=== PATIENT | female | born 1940 | race Caucasian/White ===

== ENCOUNTER → 2016-02-10 | Outpatient (CLI) | payer MEDICARE, OTHER | LOC: OD 10:51 | PROVIDERS: ATTEND Specialist | DX: E53.8 Deficiency of other specified B group vitamins (principal) | CPT/HCPCS: 36415; 82607 ==

== ENCOUNTER 2016-03-23 06:58 | Day surgery (SDC) | payer MEDICARE, OTHER ==
[~2016-03-23 06:58] MED LIST: KETOROLAC TROMETHAMINE 0.45% 4 DROP/0.4 ML DROPERETTE OS PRN
[2016-03-23] MEDS: CYCLOPENTOLATE 0.2%/PHENYLEPHRINE 1% OPH SOLN 2 ML OS PRN ×3 (07:10→07:30)
[2016-03-23] MEDS: TROPICAMIDE 1% OPH SOLN 3 ML OS PRN ×3 (07:11→07:31)
[2016-03-23] MEDS: BESIFLOXACIN HCL 0.6% OPH SUSP 5 ML BOTTLE OS PRN ×3 (07:12→08:08)
[2016-03-23] MEDS ORDERED: LIDOCAINE 1% INJ-PF (10 MG/ML) 30 ML SDV ONE (07:14)
[2016-03-23] MEDS: TETRACAINE HCL 0.5% OPH SOLN 2 ML OS PRN ×3 (07:14→07:45)
[2016-03-23] MEDS ORDERED: CHONDR SU A NA/HYALUR INTRAOC KIT (SURGICARE) ONE (07:14)
[2016-03-23] MEDS ORDERED: EPINEPHRINE INJ/PF 1 MG/1 ML AMPULE ONE (07:14)
[2016-03-23] MEDS ORDERED: FENTANYL CITRATE INJ/PF 100 MCG/2 ML AMPUL ONE (07:21)
[2016-03-23] MEDS ORDERED: MIDAZOLAM 2 MG/2 ML INJ ONE (07:21)
[2016-03-23] MEDS ORDERED: LIDOCAINE 2% INJ-PF (20 MG/ML) 10 ML AMPUL ONE (07:22)
[2016-03-23] MEDS ORDERED: PROPOFOL INJ 200 MG/20 ML VIAL IV ONE (07:22)
--- NOTE | 2016-03-23 12:53 | [facility] OPERATIVE REPORT E ---
[facility] Operative Report NAME: DEANDRE WAYNE AGE: 75Y DATE OF SURGERY: 03/23/2016 ROOM: PREOPERATIVE DIAGNOSIS: Cataract, left eye. POSTOPERATIVE DIAGNOSIS: Cataract, left eye. OPERATION: Cataract extraction with intraocular lens implant of the left eye. SURGEON: GARRETT REYNOSO M.D. ANESTHESIA: Topical. PROCEDURE: After obtaining appropriate consent, the patient's left eye was prepped and draped in sterile fashion as well as the surgeon in a sterile manner and cataract surgery was started. First a paracentesis blade was used to make a small side-port incision. Viscoelastic was used to inflate the anterior chamber. Next a 2.4 mm incision was made with the paracentesis blade. A continuous capsulorrhexis incision was made using a cystotome and Utrata forceps. Following this hydrodissection was carried out to make the lens fully loose and mobile and it was rotated 90 degrees. Following this, a kknpgg-[id number]-scgiavb technique was used to phacoemulsify the lens with a CDE of 9.83. The remaining cortex was removed with irrigation/aspiration. Provisc was instilled into the capsular bag to inflate the bag. A SN60WF, 21.0 diopter lens was placed. The remaining viscoelastic material was removed with irrigation/aspiration. Following this, a 10-0 nylon suture was used to close the incision and it was found to be watertight. Vigamox was instilled in the eye and a protective shield was placed over the eye. The patient returned to the postoperative recovery in stable condition. DICTATING PHYSICIAN: GARRETT REYNOSO M.D. [id number] PHY#: [id number] ID: [id number] JOB#: [id number] ACCT: [id number] cc:GARRETT REYNOSO M.D. >
--- NOTE | 2016-03-23 12:54 | [facility] DISCHARGE SUMMARY E ---
[facility] Discharge Summary NAME: DEANDRE WAYNE AGE: 75Y ADMITTED: 03/23/2016 DISCHARGED: 03/23/2016 HOSPITAL COURSE: This is a 75-year-old female who underwent cataract extraction of the left eye. DIAGNOSIS: Cataract, left eye. INDICATIONS: She underwent surgery because she was having trouble reading small print like medicine bottles and newspaper. DISCHARGE INSTRUCTIONS: She should to be on a regular diet. No bending at her waist. No heavy lifting. She should use her Besivance, Ilevro, and Durezol and I will see her for her 1 day postoperative tomorrow. DICTATING PHYSICIAN: GARRETT REYNOSO M.D. [id number] PHY#: [id number] ID: [id number] JOB#: [id number] ACCT: [id number] cc:GARRETT REYNOSO M.D. >
== END 2016-03-23 08:52 | disposition home or self-care (01) ==
LOC: SC 06:58
PROVIDERS: ATTEND Internal Medicine
PROC: 08RK3JZ Replacement of Left Lens with Synthetic Substitute, Percutaneous Approach (ICD-10-PCS; principal; 2016-03-23 08:00)
DX: H25.813 Combined forms of age-related cataract, bilateral (principal); H43.812 Vitreous degeneration, left eye; E11.9 Type 2 diabetes mellitus without complications; H52.4 Presbyopia; M10.9 Gout, unspecified; M19.90 Unspecified osteoarthritis, unspecified site; I12.9 Hypertensive chronic kidney disease with stage 1 through stage 4 chronic kidney disease, or unspecified chronic kidney disease; N18.3 Chronic kidney disease, stage 3 (moderate); I50.9 Heart failure, unspecified; Z79.82 Long term (current) use of aspirin; Z79.899 Other long term (current) drug therapy
CPT/HCPCS: 66984; 82962; V2632; J2250; J3490 ×3; A9270; J0171; J3010; J2704; 142

== ENCOUNTER → 2016-04-11 | Outpatient (CLI) | payer MEDICARE, OTHER | LOC: OD 10:33 | PROVIDERS: ATTEND Specialist | DX: E53.8 Deficiency of other specified B group vitamins (principal) | CPT/HCPCS: 36415; 82607 ==

== ENCOUNTER 2016-04-13 07:27 | Day surgery (SDC) | payer MEDICARE, OTHER ==
[~2016-04-13 07:27] MED LIST changes: +KETOROLAC TROMETHAMINE 0.45% 4 DROP/0.4 ML DROPERETTE OD PRN; -KETOROLAC TROMETHAMINE 0.45% 4 DROP/0.4 ML DROPERETTE OS PRN
[2016-04-13] MEDS ORDERED: LIDOCAINE 1% INJ-PF (10 MG/ML) 30 ML SDV ONE (07:52)
[2016-04-13] MEDS ORDERED: EPINEPHRINE INJ/PF 1 MG/1 ML AMPULE ONE (07:52)
[2016-04-13] MEDS: TROPICAMIDE 1% OPH SOLN 3 ML OD PRN ×3 (08:31→08:47)
[2016-04-13] MEDS: CYCLOPENTOLATE 0.2%/PHENYLEPHRINE 1% OPH SOLN 2 ML OD PRN ×3 (08:31→08:47)
[2016-04-13] MEDS: TETRACAINE HCL 0.5% OPH SOLN 2 ML OD PRN ×3 (08:31→09:00)
[2016-04-13] MEDS: BESIFLOXACIN HCL 0.6% OPH SUSP 5 ML BOTTLE OD PRN ×4 (08:31→09:27)
[2016-04-13] MEDS ORDERED: MIDAZOLAM 2 MG/2 ML INJ ONE (08:41)
[2016-04-13] MEDS ORDERED: FENTANYL CITRATE INJ/PF 100 MCG/2 ML AMPUL ONE (08:41)
[2016-04-13] MEDS: CHONDR SU A NA/HYALUR INTRAOC KIT (SURGICARE) ONE ×2 (09:18)
--- NOTE | 2016-04-14 07:33 | [facility] DISCHARGE SUMMARY E ---
[facility] Discharge Summary NAME: DEANDRE WAYNE AGE: 75Y ADMITTED: 04/13/2016 DISCHARGED: 04/13/2016 HISTORY OF PRESENT ILLNESS AND HOSPITAL COURSE: This is a 75-year-old female who underwent cataract extraction of the right eye. DIAGNOSIS: Cataract, right eye. HOSPITAL COURSE: She underwent surgery because she was having trouble reading medicine bottles and trouble driving due to glare from sunlight. DISCHARGE INSTRUCTIONS: 1. She should be on a regular diet. 2. No bending at the waist and no heavy lifting. 3. She should use Besivance, Ilevro, and Durezol at 3 p.m. and 8 p.m. and sleep with a rigid shield. 4. I will see her for her 1-day postoperative tomorrow. DICTATING PHYSICIAN: GARRETT REYNOSO M.D. [id number] PHY#: [id number] ID: [id number] JOB#: [id number] ACCT: [id number] cc:GARRETT REYNOSO M.D. >
--- NOTE | 2016-04-14 07:33 | [facility] OPERATIVE REPORT E ---
[facility] Operative Report NAME: DEANDRE WAYNE AGE: 75Y DATE OF SURGERY: 04/13/2016 ROOM: PREOPERATIVE DIAGNOSIS: Cataract, right eye. POSTOPERATIVE DIAGNOSIS: Cataract, right eye. OPERATION: Cataract extraction with intraocular lens implant of the right eye. SURGEON: GARRETT REYNOSO M.D. ANESTHESIA: Topical. PROCEDURE: After obtaining appropriate consent, the patient's right eye was prepped and draped in sterile fashion as well as the surgeon in a sterile manner and cataract surgery was started. First a paracentesis blade was used to make a small side-port incision. Viscoelastic was used to inflate the anterior chamber. Next a 2.4 mm incision was made with the paracentesis blade. A continuous capsulorrhexis incision was made using a cystotome and Utrata forceps. Following this hydrodissection was carried out to make the lens fully loose and mobile and it was rotated 90 degrees. Following this, a pmtghw-ykw-gzbcwxx technique was used to phacoemulsify the lens with a CDE of 11.71. The remaining cortex was removed with irrigation/aspiration. Provisc was instilled into the capsular bag to inflate the bag. A SN60WF, 20.5 diopter lens was placed. The remaining viscoelastic material was removed with irrigation/aspiration. Following this, a 10-0 nylon suture was used to close the incision and it was found to be watertight. Vigamox was instilled in the eye and a protective shield was placed over the eye. The patient returned to the postoperative recovery in stable condition. DICTATING PHYSICIAN: GARRETT REYNOSO M.D. [id number] PHY#: [id number] ID: [id number] JOB#: [id number] ACCT: [id number] cc:GARRETT REYNOSO M.D. >
== END 2016-04-13 10:15 | disposition home or self-care (01) ==
LOC: SC 07:27
PROVIDERS: ATTEND Internal Medicine
PROC: 08RJ3JZ Replacement of Right Lens with Synthetic Substitute, Percutaneous Approach (ICD-10-PCS; principal; 2016-04-13 09:00)
DX: H25.811 Combined forms of age-related cataract, right eye (principal); Z96.1 Presence of intraocular lens; K21.9 Gastro-esophageal reflux disease without esophagitis; E11.9 Type 2 diabetes mellitus without complications; Z79.899 Other long term (current) drug therapy; Z79.84 Long term (current) use of oral hypoglycemic drugs; I11.0 Hypertensive heart disease with heart failure; I50.9 Heart failure, unspecified; M10.9 Gout, unspecified; J45.909 Unspecified asthma, uncomplicated
CPT/HCPCS: 82962; 66984; V2632; J2250; J3490 ×2; A9270; J0171; J3010; 142

== ENCOUNTER → 2016-08-29 | Outpatient (CLI) | payer MEDICARE, OTHER | LOC: OD 13:28 | PROVIDERS: ATTEND Specialist | DX: E53.8 Deficiency of other specified B group vitamins (principal) | CPT/HCPCS: 36415; 82607 ==

== ENCOUNTER → 2016-09-18 | Outpatient (CLI) | payer MEDICARE, OTHER ==
[2016-09-18 09:09] LABS: ABSOLUTE BASOPHILS # (AUTO) 0.1 10^3/uL (0.0-0.2); ABSOLUTE EOSINOPHILS # (AUTO) 0.3 10^3/uL (0.0-0.6); ABSOLUTE LYMPHOCYTES (AUTO) 1.8 10^3/uL (0.5-4.7); ABSOLUTE MONOCYTES (AUTO) 0.4 10^3/uL (0.1-1.4); ABSOLUTE NEUT (AUTO) 2.1 10^3/uL (1.7-8.2); BASOPHILS % (AUTO) 1.6 % (0-2); EOSINOPHILS % (AUTO) 6.1 % (0-6); HEMATOCRIT 40.4 % (36.0-47.0); HEMOGLOBIN 13.5 g/dL (12.0-15.5); HGB HCT DIFFERENCE 0.1; MEAN CORPUSCULAR HEMOGLOBIN 34.3 pg (27.0-33.4); MEAN CORPUSCULAR HGB CONC 33.4 g/dL (32.0-36.0); MEAN CORPUSCULAR VOLUME 103 fl (80-97); MONOCYTES % (AUTO) 9.1 % (3-13); RED BLOOD COUNT 3.93 10^6/uL (3.72-5.28); RED CELL DISTRIBUTION WIDTH 14.6 % (11.5-14.0); SEGMENTED NEUTROPHILS % (AUTO) 44.2 % (42-78); WHITE BLOOD COUNT 4.7 10^3/uL (4.0-10.5)
[2016-09-18 09:31] LABS: ALANINE AMINOTRANSFERASE 31 U/L (9-52); ALBUMIN 4.2 g/dL (3.5-5.0); ALKALINE PHOSPHATASE 100 U/L (38-126); ANION GAP 14 (5-19); ASPARTATE AMINO TRANSFERASE 30 U/L (14-36); BILIRUBIN,DIRECT 0.5 mg/dL (0.0-0.4); BILIRUBIN,TOTAL 0.6 mg/dL (0.2-1.3); BLOOD UREA NITROGEN 82 mg/dL (7-20); CALCIUM 10.3 mg/dL (8.4-10.2); CARBON DIOXIDE 29 mmol/L (22-30); CHLORIDE 99 mmol/L (98-107); CHOLESTEROL 232.49 mg/dL (0-200); CREATININE RESULT 2.72 mg/dL (0.52-1.25); Direct HDL 33 mg/dL (>40); GLUCOSE 107 mg/dL (75-110); POTASSIUM 4.9 mmol/L (3.6-5.0); SODIUM 141.7 mmol/L (137-145); TRIGLYCERIDES 520 mg/dL (<150)
[2016-09-18 09:42] LABS: DIRECT LDL 84 mg/dL (<100)
== END ==
LOC: OD 07:42
PROVIDERS: ATTEND Internal Medicine
DX: E11.9 Type 2 diabetes mellitus without complications (principal); I12.9 Hypertensive chronic kidney disease with stage 1 through stage 4 chronic kidney disease, or unspecified chronic kidney disease; N18.3 Chronic kidney disease, stage 3 (moderate); M10.9 Gout, unspecified
CPT/HCPCS: 36415; 80053; 80061; 82043; 83036; 84443; 84550; 85025

== ENCOUNTER → 2016-11-06 | Outpatient (CLI) | payer MEDICARE, OTHER ==
[2016-11-06 10:55] LABS: ALBUMIN 3.7 g/dL (3.5-5.0); ANION GAP 11 (5-19); BLOOD UREA NITROGEN 19 mg/dL (7-20); CALCIUM 9.9 mg/dL (8.4-10.2); CARBON DIOXIDE 29 mmol/L (22-30); CHLORIDE 105 mmol/L (98-107); CREATININE RESULT 1.14 mg/dL (0.52-1.25); GLUCOSE 105 mg/dL (75-110); PHOSPHORUS 3.2 mg/dL (2.5-4.5); POTASSIUM 4.3 mmol/L (3.6-5.0)
[2016-11-06 11:22] LABS: APPEARANCE,URINE CLOUDY; BILIRUBIN,URINE NEGATIVE (NEGATIVE); GLUCOSE, URINE NEGATIVE (NEGATIVE); KETONES,URINE NEGATIVE (NEGATIVE); LEUKOCYTE ESTERASE,URINE LARGE (NEGATIVE); NITRITE,URINE POSITIVE (NEGATIVE); PROTEIN,URINE 30 mg/dL (NEGATIVE); URINE SPECIFIC GRAVITY 1.011
[2016-11-06 11:33] LABS: URINE CREATININE 60.2 mg/dL (15-278); URINE PROTEIN 46.6 mg/dL (<12)
[2016-11-07 07:09] LABS: VITAMIN D 25-HYDROXY 39.7 ng/mL (30.0-100.0)
== END ==
LOC: OD 09:46
PROVIDERS: ATTEND Internal Medicine Nephrology
DX: N18.3 Chronic kidney disease, stage 3 (moderate) (principal)
CPT/HCPCS: 36415; 80069; 81001; 82306; 82570; 83970; 84156

== ENCOUNTER → 2017-02-27 | Outpatient (CLI) | payer MEDICARE, OTHER ==
[2017-02-27 09:26] LABS: ABSOLUTE BASOPHILS # (AUTO) 0.1 10^3/uL (0.0-0.2); ABSOLUTE EOSINOPHILS # (AUTO) 0.3 10^3/uL (0.0-0.6); ABSOLUTE MONOCYTES (AUTO) 0.5 10^3/uL (0.1-1.4); ABSOLUTE NEUT (AUTO) 2.7 10^3/uL (1.7-8.2); EOSINOPHILS % (AUTO) 4.7 % (0-6); HEMATOCRIT 46.4 % (36.0-47.0); HEMOGLOBIN 15.3 g/dL (12.0-15.5); LYMPHOCYTES % (AUTO) 36.6 % (13-45); MEAN CORPUSCULAR HEMOGLOBIN 32.3 pg (27.0-33.4); MEAN CORPUSCULAR HGB CONC 33.1 g/dL (32.0-36.0); MEAN CORPUSCULAR VOLUME 98 fl (80-97); MONOCYTES % (AUTO) 8.5 % (3-13); PLATELET COUNT 177 10^3/uL (150-450); RED BLOOD COUNT 4.75 10^6/uL (3.72-5.28); RED CELL DISTRIBUTION WIDTH 13.9 % (11.5-14.0); SEGMENTED NEUTROPHILS % (AUTO) 49.2 % (42-78); TOTAL CELLS COUNTED % (AUTO) 100 %; WHITE BLOOD COUNT 5.5 10^3/uL (4.0-10.5)
[2017-02-27 09:31] LABS: APPEARANCE,URINE SLIGHTLY-CLOUDY; BILIRUBIN,URINE NEGATIVE (NEGATIVE); COLOR,URINE YELLOW; GLUCOSE, URINE NEGATIVE (NEGATIVE); KETONES,URINE NEGATIVE (NEGATIVE); LEUKOCYTE ESTERASE,URINE LARGE (NEGATIVE); NITRITE,URINE NEGATIVE (NEGATIVE); PROTEIN,URINE NEGATIVE (NEGATIVE); URINE SPECIFIC GRAVITY 1.013
[2017-02-27 09:40] LABS: ALBUMIN 4.4 g/dL (3.5-5.0); ANION GAP 13 (5-19); BLOOD UREA NITROGEN 12 mg/dL (7-20); CALCIUM 10.4 mg/dL (8.4-10.2); CARBON DIOXIDE 27 mmol/L (22-30); CHLORIDE 103 mmol/L (98-107); GLUCOSE 108 mg/dL (75-110); PHOSPHORUS 3.2 mg/dL (2.5-4.5); POTASSIUM 4.1 mmol/L (3.6-5.0); SODIUM 143.1 mmol/L (137-145)
[2017-02-27 09:54] LABS: UR PRO/CREAT RATIO RESULT 0.1 mg/mg (0.0-0.2); URINE CREATININE 104.2 mg/dL (15-278); URINE PROTEIN 8.6 mg/dL (<12)
== END ==
LOC: OD 08:28
PROVIDERS: ATTEND Internal Medicine Nephrology
DX: N39.0 Urinary tract infection, site not specified (principal); N18.3 Chronic kidney disease, stage 3 (moderate)
CPT/HCPCS: 36415; 80069; 81001; 82306; 82570; 83970; 84156; 85025; 87086

== ENCOUNTER → 2017-03-29 | Outpatient (CLI) | payer MEDICARE, OTHER ==
[2017-03-29 11:39] LABS: APPEARANCE,URINE CLOUDY; BILIRUBIN,URINE NEGATIVE (NEGATIVE); COLOR,URINE YELLOW; GLUCOSE, URINE NEGATIVE (NEGATIVE); KETONES,URINE NEGATIVE (NEGATIVE); LEUKOCYTE ESTERASE,URINE LARGE (NEGATIVE); NITRITE,URINE NEGATIVE (NEGATIVE); PROTEIN,URINE 100 mg/dL (NEGATIVE); URINE SPECIFIC GRAVITY 1.012; UROBILINOGEN,URINE NEGATIVE mg/dL (<2.0)
== END ==
LOC: OD 10:43
PROVIDERS: ATTEND Internal Medicine Nephrology
DX: R30.0 Dysuria (principal)
CPT/HCPCS: 81001; 87086; 87088; 87186

== ENCOUNTER 2017-06-05 15:48 | Inpatient (IN) | payer MEDICARE, OTHER ==
[2017-06-05] MEDS ORDERED: ASPIRIN 81 MG TABLET, CHEWABLE PO ONE (16:36)
--- NOTE | 2017-06-05 16:52 | ER Document Report ---
ED Medical Screen (RME) - General Chief Complaint: Shortness Of Breath Stated Complaint: CHEST PAIN Time Seen by Provider: 06/05/17 16:48 Notes: The patient is a 77-year-old female, past medical history cardiomyopathy, presents with several days of shortness of breath on exertion and 1 day of a dull substernal chest pressure is worse with movement. She denies numbness, tingling, nausea, vomiting, back pain or abdominal pain. PE: RRR. Lungs CTAB. Strong distal pulses. I have greeted and performed a rapid initial assessment of this patient. A comprehensive ED assessment and evaluation of the patient, analysis of test results and completion of the medical decision making process will be conducted by additional ED providers. TRAVEL OUTSIDE OF THE [place] IN LAST 30 DAYS: No - Related Data Allergies/Adverse Reactions: No Known Allergies Allergy (Verified 06/05/17 15:49) Home Medications: gabapentin, glimepiride, allopurinol, potassium cl, pepcid, amantadine, metoprolol succ er, vit d3, breo ellipta, singulair Past Medical History - Social History Chew tobacco use (# tins/day): No Frequency of alcohol use: None Drug Abuse: None - Past Medical History Cardiac Medical History: Reports: Hx Hypertension Denies: Hx Heart Attack Pulmonary Medical History: Reports: Hx Asthma - NO INHALER Neurological Medical History: Denies: Hx Cerebrovascular Accident, Hx Seizures Renal/ Medical History: Denies: Hx Peritoneal Dialysis GI Medical History: Denies: Hx Hepatitis, Hx Hiatal Hernia, Hx Ulcer Infectious Medical History: Denies: Hx Hepatitis Past Surgical History: Denies: Hx Mastectomy, Hx Open Heart Surgery, Hx Pacemaker Physical Exam - Vital signs Vitals: Temp Pulse Resp BP Pulse Ox 97.5 F 91 18 111/72 98 06/05/17 16:02 06/05/17 16:02 06/05/17 16:02 06/05/17 16:02 06/05/17 16:02 Course - Vital Signs Vital signs: Temp Pulse Resp BP Pulse Ox 97.5 F 91 18 111/72 98 06/05/17 16:02 06/05/17 16:02 06/05/17 16:02 06/05/17 16:02 06/05/17 16:02
--- NOTE | 2017-06-05 17:27 | RADIOLOGY REPORT (SQ) ---
EXAM DESCRIPTION: CHEST SINGLE VIEW COMPLETED DATE/TIME: 06/05/2017 5:19 pm REASON FOR STUDY: chest pain COMPARISON: None. EXAM PARAMETERS: NUMBER OF VIEWS: One view. TECHNIQUE: Single frontal radiographic view of the chest acquired. RADIATION DOSE: NA LIMITATIONS: None. FINDINGS: LUNGS AND PLEURA: Minimal left pleural effusion. No infiltrate is appreciated. MEDIASTINUM AND HILAR STRUCTURES: No masses. Contour normal. HEART AND VASCULAR STRUCTURES: Heart normal in size. Normal vasculature. BONES: No acute findings. HARDWARE: None in the chest. OTHER: No other significant finding. IMPRESSION: Minimal left pleural effusion with no acute cardiopulmonary disease. TECHNICAL DOCUMENTATION: JOB ID: [id number] [employer]- All Rights Reserved Reading location - IP/workstation name: [email or web address]
[2017-06-05 18:17] LABS: ABSOLUTE BASOPHILS # (AUTO) 0.1 10^3/uL (0.0-0.2); ABSOLUTE EOSINOPHILS # (AUTO) 0.1 10^3/uL (0.0-0.6); ABSOLUTE LYMPHOCYTES (AUTO) 2.4 10^3/uL (0.5-4.7); ABSOLUTE MONOCYTES (AUTO) 0.7 10^3/uL (0.1-1.4); ABSOLUTE NEUT (AUTO) 3.5 10^3/uL (1.7-8.2); BASOPHILS % (AUTO) 1.1 % (0-2); EOSINOPHILS % (AUTO) 2.1 % (0-6); HEMATOCRIT 40.3 % (36.0-47.0); HEMOGLOBIN 13.1 g/dL (12.0-15.5); LYMPHOCYTES % (AUTO) 35.1 % (13-45); MEAN CORPUSCULAR HEMOGLOBIN 32.3 pg (27.0-33.4); MEAN CORPUSCULAR HGB CONC 32.5 g/dL (32.0-36.0); MEAN CORPUSCULAR VOLUME 99 fl (80-97); MONOCYTES % (AUTO) 10.4 % (3-13); PLATELET COUNT 182 10^3/uL (150-450); RED BLOOD COUNT 4.06 10^6/uL (3.72-5.28); RED CELL DISTRIBUTION WIDTH 14.5 % (11.5-14.0); SEGMENTED NEUTROPHILS % (AUTO) 51.3 % (42-78); TOTAL CELLS COUNTED % (AUTO) 100 %; WHITE BLOOD COUNT 6.8 10^3/uL (4.0-10.5)
--- NOTE | 2017-06-05 18:42 | ER Document Report ---
ED General - General Chief Complaint: Shortness Of Breath Stated Complaint: CHEST PAIN Time Seen by Provider: 06/05/17 16:48 Mode of Arrival: Medic Information source: Patient, Relative Notes: 77-year-old female history of asthma chf presents with shortness of breath over the past intermittent day. Patient admits chest pain, denies any fevers or chills, patient admits to shortness of breath TRAVEL OUTSIDE OF THE [place] IN LAST 30 DAYS: No - HPI Onset: Just prior to arrival Onset/Duration: Sudden Quality of pain: Pressure Severity: Mild Pain Level: 1 Associated symptoms: Chest pain, Shortness of breath Exacerbated by: Denies Relieved by: Denies Similar symptoms previously: Yes Recently seen / treated by doctor: Yes - Related Data Allergies/Adverse Reactions: No Known Allergies Allergy (Verified 06/05/17 15:49) Home Medications: gabapentin, glimepiride, allopurinol, potassium cl, pepcid, amantadine, metoprolol succ er, vit d3, breo ellipta, singulair Past Medical History - Social History Smoking Status: Never Smoker Cigarette use (# per day): No Chew tobacco use (# tins/day): No Smoking Education Provided: No Frequency of alcohol use: None Drug Abuse: None Family History: Reviewed & Not Pertinent Patient has suicidal ideation: No Patient has homicidal ideation: No - Past Medical History Cardiac Medical History: Reports: Hx Hypertension Denies: Hx Heart Attack Pulmonary Medical History: Reports: Hx Asthma - NO INHALER Neurological Medical History: Denies: Hx Cerebrovascular Accident, Hx Seizures Renal/ Medical History: Denies: Hx Peritoneal Dialysis GI Medical History: Denies: Hx Hepatitis, Hx Hiatal Hernia, Hx Ulcer Infectious Medical History: Denies: Hx Hepatitis Past Surgical History: Denies: Hx Mastectomy, Hx Open Heart Surgery, Hx Pacemaker Review of Systems - Review of Systems Notes: REVIEW OF SYSTEMS: CONSTITUTIONAL : Denies fever, chills, or sweats. Denies recent illness. EENT: Denies eye, ear, throat, or mouth pain or symptoms. Denies nasal or sinus congestion or discharge. Denies throat, tongue, or mouth swelling or difficulty swallowing. CARDIOVASCULAR: Admits to chest pain RESPIRATORY: Admits shortness breath GASTROINTESTINAL: Denies abdominal pain or distention. Denies nausea, vomiting , or diarrhea. Denies blood in vomitus, stools, or per rectum. Denies black, tarry stools. Denies constipation. GENITOURINARY: Denies difficulty urinating, painful urination, burning, frequency, blood in urine, or discharge. FEMALE GENITOURINARY: Denies vaginal bleeding, heavy or abnormal periods, irregular periods. Denies vaginal discharge or odor. MUSCULOSKELETAL: Denies back or neck pain or stiffness. Denies joint pain or swelling. SKIN: Denies rash, lesions or sores. HEMATOLOGIC : Denies easy bruising or bleeding. LYMPHATIC: Denies swollen, enlarged glands. NEUROLOGICAL: Denies confusion or altered mental status. Denies passing out or loss of consciousness. Denies dizziness or lightheadedness. Denies headache. Denies weakness or paralysis or loss of use of either side. Denies problems with gait or speech. Denies sensory loss, numbness, or tingling. Denies seizures. PSYCHIATRIC: Denies anxiety or stress. Denies depression, suicidal ideation, or homicidal ideation. ALL OTHER SYSTEMS REVIEWED AND NEGATIVE. PHYSICAL EXAMINATION: GENERAL: Well-appearing, well-nourished and in no acute distress. HEAD: Atraumatic, normocephalic. EYES: Pupils equal round and reactive to light, extraocular movements intact, conjunctiva are normal. ENT: Nares patent, oropharynx clear without exudates. Moist mucous membranes. NECK: Normal range of motion, supple without lymphadenopathy LUNGS: Crackles at the bases no respiratory distress HEART: Regular rate and rhythm without murmurs ABDOMEN: Soft, nontender, nondistended abdomen. No guarding, no rebound. No masses appreciated. Female : deferred Musculoskeletal: Normal range of motion, no pitting or edema. No cyanosis. NEUROLOGICAL: Cranial nerves grossly intact. Normal speech, normal gait. Normal sensory, motor exams PSYCH: Normal mood, normal affect. SKIN: Warm, Dry, normal turgor, no rashes or lesions noted. Dictation was performed using [employer] voice recognition software Physical Exam - Vital signs Vitals: Temp Pulse Resp BP Pulse Ox 97.5 F 91 18 111/72 98 06/05/17 16:02 06/05/17 16:02 06/05/17 16:02 06/05/17 16:02 06/05/17 16:02 Course - Re-evaluation Re-evalutation: 06/06/17 00:06 Patient's BNP is noted to be significantly elevated at 20,000, chest x-ray does note small effusion, she is satting well however I do believe that there is congestive heart failure associated with this. Patient will be admitted to the hospitalist service for the chest pain CHF exacerbation - Vital Signs Vital signs: Temp Pulse Resp BP Pulse Ox 97.5 F 91 22 H 96/71 L 95 06/05/17 16:02 06/05/17 16:02 06/05/17 21:31 06/05/17 21:31 06/05/17 21:31 - Laboratory Result Diagrams: 06/05/17 18:05 06/05/17 18:47 Laboratory results interpreted by me: 06/05/17 06/05/17 06/05/17 18:05 18:47 18:47 MCV 99 H RDW 14.5 H Potassium 5.2 H BUN 27 H Est GFR ( Amer) 53 L Est GFR (Non-Af Amer) 43 L Creatine Kinase 26 L NT-Pro-B Natriuret Pep 92612 H - Diagnostic Test Radiology reviewed: Image reviewed - 2 view chest x-ray consistent with distant heart failure, Reports reviewed - EKG Interpretation by Me EKG shows normal: Sinus rhythm, Ullin, Intervals, QRS Complexes Discharge - Discharge Clinical Impression: Chest pain Qualifiers: Chest pain type: unspecified Qualified Code(s): R07.9 - Chest pain, unspecified CHF (congestive heart failure) Qualifiers: Heart failure type: combined systolic and diastolic Heart failure chronicity: acute on chronic Qualified Code(s): I50.43 - Acute on chronic combined systolic (congestive) and diastolic (congestive) heart failure Hypotension Qualifiers: Hypotension type: unspecified hypotension type Qualified Code(s): I95.9 - Hypotension, unspecified Condition: Stable Disposition: ADMITTED OBSERVATION Admitting Provider: Hospitalist Unit Admitted: Telemetry
[2017-06-05 19:26] LABS: ALANINE AMINOTRANSFERASE 24 U/L (9-52); ALBUMIN 3.7 g/dL (3.5-5.0); ALKALINE PHOSPHATASE 81 U/L (38-126); ANION GAP 16 (5-19); ASPARTATE AMINO TRANSFERASE 24 U/L (14-36); BILIRUBIN,DIRECT 0.4 mg/dL (0.0-0.4); BILIRUBIN,TOTAL 0.5 mg/dL (0.2-1.3); BLOOD UREA NITROGEN 27 mg/dL (7-20); CALCIUM 9.6 mg/dL (8.4-10.2); CARBON DIOXIDE 23 mmol/L (22-30); CHLORIDE 105 mmol/L (98-107); CREATINE KINASE 26 U/L (30-135); GLUCOSE 105 mg/dL (75-110); POTASSIUM 5.2 mmol/L (3.6-5.0); SODIUM 143.6 mmol/L (137-145); TOTAL PROTEIN 7.2 g/dL (6.3-8.2)
[2017-06-05 19:47] LABS: TROPONIN I 0.026 ng/mL
[2017-06-05] MEDS ORDERED: ONDANSETRON HCL INJ/PF 4 MG/2 ML SDV IV PRN (21:54)
[2017-06-05] MEDS ORDERED: FUROSEMIDE INJ/PF 40 MG/4 ML SDV IV SCH (22:00)
--- NOTE | 2017-06-05 22:38 | EKG REPORT ---
SEVERITY:- ABNORMAL ECG - SINUS RHYTHM NONSPECIFIC INTRAVENTRICULAR CONDUCTION DELAY CONSIDER ANTEROSEPTAL INFARCT : Confirmed by: Kael Fuentes 05-Jun-2017 22:37:32
[2017-06-05] MEDS: CARVEDILOL 6.25 MG TABLET PO SCH (22:43)
--- NOTE | 2017-06-05 23:56 | PDOC H&P ---
History of Present Illness Admission Date/PCP: 06/05/17 21:09 ALEXANDR ABRAHAM, History of Present Illness: DEANDRE WAYNE is a 77 year old female patient with past medical history of hypertension, hyperlipidemia, diabetes mellitus, diabetic neuropathy , congestive heart failure, cardiomyopathy and stage II chronic kidney disease. She she stated she has been in her usual baseline state of health up until one week when she starts to have intermittent shortness of breath precipitated by exertion. Of note patient r has been taken off her Lasix by her general lithographic worker. Patient also noticed swelling of her bilateral lower extremities. Her initial blood work shows markedly elevated BNP of 23,000, hyperkalemia which is mild 5.2 and creatinine of 1.2. Her chest x-ray showed mild left pleural effusion. Patient also complains of mild chest pain. She denies fever, chills, cough, palpitation, diaphoresis, nausea, vomiting, abdominal pain, diarrhea or urinary complaints. No headache, dizziness or visual change. Past Medical History Cardiac Medical History: Reports: Hypertension Denies: Myocardial Infarction Pulmonary Medical History: Reports: Asthma - NO INHALER Neurological Medical History: Denies: Seizures Endocrine Medical History: Reports: Diabetes Mellitus Type 2 Renal/ Medical History: Reports: Chronic Kidney Disease GI Medical History: Denies: Hepatitis, Hiatal Hernia Hematology: Denies: Anemia, Sickle Cell Disease Social History Smoking Status: Never Smoker Frequency of Alcohol Use: None Family History Family History: Hypertension Parental Family History Reviewed: Yes Children Family History Reviewed: Yes Sibling(s) Family History Reviewed.: Yes Medication/Allergy Home Medications: Famotidine 40 mg PO DAILY 03/21/16 Gabapentin 600 mg PO TID 03/21/16 Glimepiride [Amaryl] 2 mg PO DAILY 03/21/16 Potassium Chloride 10 meq PO DAILY 03/21/16 Allergies/Adverse Reactions: No Known Allergies Allergy (Verified 06/05/17 15:49) Review of Systems Constitutional: PRESENT: as per HPI Eyes: PRESENT: as per HPI Cardiovascular: PRESENT: as per HPI Respiratory: PRESENT: as per HPI Neurological: PRESENT: as per HPI Physical Exam Vital Signs: Temp Pulse Resp BP Pulse Ox 97.5 F 91 19 99/86 H 98 06/05/17 16:02 06/05/17 16:02 06/05/17 23:01 06/05/17 23:01 06/05/17 23:01 General appearance: PRESENT: mild distress Head exam: PRESENT: atraumatic, normocephalic Respiratory exam: PRESENT: other - Bilateral fine crackles Extremities exam: PRESENT: +2 edema - Bilateral Results Impressions: Chest X-Ray 06/05/17 16:36 IMPRESSION: Minimal left pleural effusion with no acute cardiopulmonary disease. Assessment & Plan - Diagnosis (1) Acute on chronic systolic congestive heart failure, NYHA class 2 Is this a current diagnosis for this admission?: Yes Plan: Patient admitted was for inpatient status. Lasix 40 mg IV every 12 hours ,Coreg 6.12 mg twice a day, enalapril 2.5 mg p.o. daily, digoxin 0.25 mg p.o. daily Daily weight and strict input output monitoring (2) Hypertension Qualifiers: Hypertension type: essential hypertension Qualified Code(s): I10 - Essential (primary) hypertension Is this a current diagnosis for this admission?: Yes Plan: Controlled. Continue her home medication. (3) Diabetes mellitus Qualifiers: Diabetes mellitus type: type 2 Diabetes mellitus complication detail: with polyneuropathy Is this a current diagnosis for this admission?: Yes Plan: Continue her home medication and she will be on sliding scale. (4) Hyperlipidemia Qualifiers: Hyperlipidemia type: unspecified Qualified Code(s): E78.5 - Hyperlipidemia , unspecified Is this a current diagnosis for this admission?: Yes Plan: Continue her home medication. - Time Time Spent: 30 to 50 Minutes - Inpatient Certification Medical Necessity: Need Close Monitoring Due to Risk of Patient Decompensation
[2017-06-06 05:35] LABS: ANION GAP 15 (5-19); BLOOD UREA NITROGEN 27 mg/dL (7-20); CALCIUM 9.5 mg/dL (8.4-10.2); CARBON DIOXIDE 28 mmol/L (22-30); CHLORIDE 103 mmol/L (98-107); GLUCOSE 102 mg/dL (75-110); SODIUM 145.8 mmol/L (137-145)
[2017-06-06 05:44] LABS: POTASSIUM 4.2 mmol/L (3.6-5.0)
[2017-06-06] MEDS: HEPARIN SOD (PORCINE) 5,000 UNIT/ML 1 ML SYRINGE SUBCUT SCH ×3 (06:36→21:39)
--- NOTE | 2017-06-06 08:18 | PDOC PROGRESS REPORT ---
Subjective Progress Note for:: 06/06/17 Subjective:: The patient states to feel better. She denies any chest pain or shortness of breath. Reason For Visit: HEART FAILURE Physical Exam Vital Signs: Temp Pulse Resp BP Pulse Ox 97.5 F 74 18 94/60 L 94 06/06/17 03:56 06/06/17 03:56 06/06/17 03:56 06/06/17 03:56 06/06/17 03:56 Intake & Output 06/05/17 06/06/17 06/07/17 06:59 06:59 06:59 Intake Total 2 Output Total 900 Balance -898 Weight 75.5 kg General appearance: PRESENT: mild distress Head exam: PRESENT: atraumatic Eye exam: PRESENT: conjunctiva pink Neck exam: PRESENT: carotid bruit Respiratory exam: PRESENT: rales Cardiovascular exam: PRESENT: +S1, +S2 Pulses: PRESENT: +1 pedal pulses bilateral GI/Abdominal exam: PRESENT: normal bowel sounds, soft Extremities exam: PRESENT: pedal edema Musculoskeletal exam: PRESENT: full ROM Neurological exam: PRESENT: alert, awake Results Laboratory Results: 06/06/17 04:20 06/06/17 04:20 Sodium 145.8 H Potassium 4.2 D Chloride 103 Carbon Dioxide 28 Anion Gap 15 BUN 27 H Creatinine 1.16 Est GFR ( Amer) 55 L Est GFR (Non-Af Amer) 45 L Glucose 102 Calcium 9.5 Magnesium 1.9 Impressions: Chest X-Ray 06/05/17 16:36 IMPRESSION: Minimal left pleural effusion with no acute cardiopulmonary disease. Assessment & Plan - Diagnosis (1) Acute on chronic systolic congestive heart failure, NYHA class 2 Is this a current diagnosis for this admission?: Yes (2) Diabetes mellitus Qualifiers: Diabetes mellitus type: type 2 Diabetes mellitus complication detail: with polyneuropathy Is this a current diagnosis for this admission?: Yes Plan: Continue current medications (3) Hyperlipidemia Qualifiers: Hyperlipidemia type: unspecified Qualified Code(s): E78.5 - Hyperlipidemia , unspecified Is this a current diagnosis for this admission?: Yes Plan: Continue current treatment (4) Hypertension Qualifiers: Hypertension type: essential hypertension Qualified Code(s): I10 - Essential (primary) hypertension Is this a current diagnosis for this admission?: Yes Plan: Continue current treatment
[2017-06-06 09:56] LABS: CREATINE KINASE MB 0.71 ng/mL (<4.55); TROPONIN I 0.027 ng/mL
[2017-06-06] MEDS ORDERED: DIGOXIN 0.125 MG TABLET PO SCH (10:00)
[2017-06-06] MEDS ORDERED: ENALAPRIL MALEATE 2.5 MG TABLET PO SCH (10:00)
[2017-06-06] MEDS: CARVEDILOL 6.25 MG TABLET PO SCH ×2 (12:51→21:39)
[2017-06-06] MEDS: ASPIRIN 81 MG TABLET, ENT COATED PO SCH (12:52)
[2017-06-06] MEDS ORDERED: FUROSEMIDE 40 MG TABLET PO ONE (13:00)
[2017-06-06 15:46] LABS: CREATINE KINASE MB 0.69 ng/mL (<4.55); TROPONIN I 0.026 ng/mL
[2017-06-06 21:21] LABS: CREATINE KINASE MB 0.56 ng/mL (<4.55); TROPONIN I 0.035 ng/mL
[2017-06-06] MEDS: FUROSEMIDE 40 MG TABLET PO SCH (21:39)
[2017-06-07 05:06] LABS: ABSOLUTE BASOPHILS # (AUTO) 0.1 10^3/uL (0.0-0.2); ABSOLUTE EOSINOPHILS # (AUTO) 0.2 10^3/uL (0.0-0.6); ABSOLUTE LYMPHOCYTES (AUTO) 1.8 10^3/uL (0.5-4.7); ABSOLUTE MONOCYTES (AUTO) 0.5 10^3/uL (0.1-1.4); ABSOLUTE NEUT (AUTO) 1.9 10^3/uL (1.7-8.2); BASOPHILS % (AUTO) 1.2 % (0-2); EOSINOPHILS % (AUTO) 4.5 % (0-6); HEMATOCRIT 37.8 % (36.0-47.0); HEMOGLOBIN 12.4 g/dL (12.0-15.5); LYMPHOCYTES % (AUTO) 40.9 % (13-45); MEAN CORPUSCULAR HGB CONC 32.9 g/dL (32.0-36.0); MEAN CORPUSCULAR VOLUME 97 fl (80-97); MONOCYTES % (AUTO) 12.1 % (3-13); PLATELET COUNT 146 10^3/uL (150-450); RED BLOOD COUNT 3.88 10^6/uL (3.72-5.28); RED CELL DISTRIBUTION WIDTH 13.9 % (11.5-14.0); SEGMENTED NEUTROPHILS % (AUTO) 41.3 % (42-78); TOTAL CELLS COUNTED % (AUTO) 100 %; WHITE BLOOD COUNT 4.5 10^3/uL (4.0-10.5)
[2017-06-07] MEDS: HEPARIN SOD (PORCINE) 5,000 UNIT/ML 1 ML SYRINGE SUBCUT SCH ×3 (05:34→21:16)
[2017-06-07 06:20] LABS: ALANINE AMINOTRANSFERASE 22 U/L (9-52); ALBUMIN 3.6 g/dL (3.5-5.0); ALKALINE PHOSPHATASE 80 U/L (38-126); ANION GAP 15 (5-19); ASPARTATE AMINO TRANSFERASE 25 U/L (14-36); BILIRUBIN,DIRECT 0.4 mg/dL (0.0-0.4); BILIRUBIN,TOTAL 0.7 mg/dL (0.2-1.3); BLOOD UREA NITROGEN 35 mg/dL (7-20); CALCIUM 9.8 mg/dL (8.4-10.2); CARBON DIOXIDE 29 mmol/L (22-30); CHLORIDE 102 mmol/L (98-107); GLUCOSE 111 mg/dL (75-110); POTASSIUM 3.8 mmol/L (3.6-5.0); SODIUM 145.7 mmol/L (137-145)
--- NOTE | 2017-06-07 08:50 | PDOC PROGRESS REPORT ---
Subjective Progress Note for:: 06/07/17 Subjective:: The patient states to feel better. She is still short of breath with exertion but it seemed to be improving. She is in a negative balance. She denies any chest pain. She denies any palpitations. Reason For Visit: HEART FAILURE Physical Exam Vital Signs: Temp Pulse Resp BP Pulse Ox 97.6 F 74 16 101/57 L 94 06/07/17 03:26 06/07/17 07:00 06/07/17 03:26 06/07/17 06:11 06/07/17 03:26 Intake & Output 06/06/17 06/07/17 06/08/17 06:59 06:59 06:59 Intake Total 2 1010 Output Total 900 1075 Balance -898 -65 Weight 75.5 kg 73.7 kg General appearance: PRESENT: mild distress Head exam: PRESENT: atraumatic Eye exam: PRESENT: conjunctiva pink Neck exam: PRESENT: carotid bruit Respiratory exam: PRESENT: crackles Cardiovascular exam: PRESENT: +S1, +S2 Pulses: PRESENT: +1 pedal pulses bilateral GI/Abdominal exam: PRESENT: normal bowel sounds, soft Extremities exam: PRESENT: full ROM Musculoskeletal exam: PRESENT: other Neurological exam: PRESENT: alert, awake Results Laboratory Results: 06/07/17 04:21 06/07/17 04:21 06/07/17 06/07/17 06/07/17 04:21 04:21 04:21 WBC 4.5 RBC 3.88 Hgb 12.4 Hct 37.8 MCV 97 MCH 32.0 MCHC 32.9 RDW 13.9 Plt Count 146 L Seg Neutrophils % 41.3 L Lymphocytes % 40.9 Monocytes % 12.1 Eosinophils % 4.5 Basophils % 1.2 Absolute Neutrophils 1.9 Absolute Lymphocytes 1.8 Absolute Monocytes 0.5 Absolute Eosinophils 0.2 Absolute Basophils 0.1 Sodium 145.7 H Potassium 3.8 Chloride 102 Carbon Dioxide 29 Anion Gap 15 BUN 35 H Creatinine 1.31 H Est GFR ( Amer) 48 L Est GFR (Non-Af Amer) 39 L Glucose 111 H Calcium 9.8 Magnesium 1.6 Total Bilirubin 0.7 AST 25 ALT 22 Alkaline Phosphatase 80 Total Protein 7.0 Albumin 3.6 TSH 6.71 H 06/06/17 06/06/17 06/06/17 09:00 09:00 14:20 Creatine Kinase 21 L 24 L CK-MB (CK-2) 0.71 Troponin I 0.027 NT-Pro-B Natriuret Pep 06/06/17 06/06/17 06/06/17 14:20 20:46 20:46 Creatine Kinase < 20 L CK-MB (CK-2) 0.69 0.56 Troponin I 0.026 0.035 NT-Pro-B Natriuret Pep 06/07/17 04:21 Creatine Kinase CK-MB (CK-2) Troponin I NT-Pro-B Natriuret Pep [id number] H Impressions: Chest X-Ray 06/05/17 16:36 IMPRESSION: Minimal left pleural effusion with no acute cardiopulmonary disease. Assessment & Plan - Diagnosis (1) Acute on chronic systolic congestive heart failure, NYHA class 2 Is this a current diagnosis for this admission?: Yes Plan: Improving. We will continue with diuretics and her cardiac meds (2) Diabetes mellitus Qualifiers: Diabetes mellitus type: type 2 Diabetes mellitus complication detail: with polyneuropathy Is this a current diagnosis for this admission?: Yes Plan: Continue current medications (3) Hyperlipidemia Qualifiers: Hyperlipidemia type: unspecified Qualified Code(s): E78.5 - Hyperlipidemia , unspecified Is this a current diagnosis for this admission?: Yes Plan: Continue current medications (4) Hypertension Qualifiers: Hypertension type: essential hypertension Qualified Code(s): I10 - Essential (primary) hypertension Is this a current diagnosis for this admission?: Yes Plan: Continue current treatment
[2017-06-07] MEDS ORDERED: (PENDING PHARMACY ID) (Fluticasone/Vilanterol [Breo Ellipta 100-25 Mcg Inh] 1 PUFF) IH SCH (10:00)
[2017-06-07] MEDS ORDERED: (PENDING PHARMACY ID) (Amantadine Hcl [Amantadine] 100 MG) PO SCH (10:00)
[2017-06-07] MEDS: FAMOTIDINE 20 MG TABLET PO SCH (10:53)
[2017-06-07] MEDS: AMANTADINE HCL 100 MG CAPSULE PO SCH ×2 (10:56→17:56)
[2017-06-07] MEDS: ASPIRIN 81 MG TABLET, ENT COATED PO SCH (10:56)
[2017-06-07] MEDS: GLIMEPIRIDE 1 MG TABLET PO SCH (10:56)
[2017-06-07] MEDS: FUROSEMIDE 40 MG TABLET PO SCH ×2 (10:56→21:16)
[2017-06-07] MEDS: VALSARTAN 80 MG TABLET PO SCH (10:57)
[2017-06-07] MEDS: POTASSIUM CHLORIDE 10 MEQ TABLET.SA PO SCH (10:57)
[2017-06-07] MEDS: METOPROLOL SUCCINATE 25 MG TAB.SR.24H PO SCH (10:57)
[2017-06-07] MEDS: FLUTICASONE NASAL SPRAY 50 MCG/SPRY 120 SPRAY/16 GM NASL SCH (10:58)
[2017-06-07 11:02] LABS: CREATINE KINASE MB 0.72 ng/mL (<4.55); TROPONIN I 0.037 ng/mL
[2017-06-07] MEDS: GABAPENTIN 300 MG CAPSULE PO SCH ×2 (11:05→17:56)
[2017-06-07 15:45] LABS: CREATINE KINASE MB 0.51 ng/mL (<4.55); TROPONIN I 0.03 ng/mL
[2017-06-07 21:24] LABS: CREATINE KINASE MB 0.42 ng/mL (<4.55); TROPONIN I 0.043 ng/mL
[2017-06-08] MEDS: GABAPENTIN 300 MG CAPSULE PO SCH ×2 (00:07→06:11)
[2017-06-08 04:39] LABS: ABSOLUTE EOSINOPHILS # (AUTO) 0.2 10^3/uL (0.0-0.6); ABSOLUTE LYMPHOCYTES (AUTO) 2.1 10^3/uL (0.5-4.7); ABSOLUTE MONOCYTES (AUTO) 0.6 10^3/uL (0.1-1.4); ABSOLUTE NEUT (AUTO) 1.9 10^3/uL (1.7-8.2); BASOPHILS % (AUTO) 0.8 % (0-2); EOSINOPHILS % (AUTO) 3.9 % (0-6); HEMATOCRIT 37.4 % (36.0-47.0); HEMOGLOBIN 12.3 g/dL (12.0-15.5); LYMPHOCYTES % (AUTO) 42.9 % (13-45); MEAN CORPUSCULAR VOLUME 97 fl (80-97); MONOCYTES % (AUTO) 12.7 % (3-13); PLATELET COUNT 159 10^3/uL (150-450); RED BLOOD COUNT 3.85 10^6/uL (3.72-5.28); RED CELL DISTRIBUTION WIDTH 13.8 % (11.5-14.0); SEGMENTED NEUTROPHILS % (AUTO) 39.7 % (42-78); TOTAL CELLS COUNTED % (AUTO) 100 %; WHITE BLOOD COUNT 4.9 10^3/uL (4.0-10.5)
[2017-06-08 04:59] LABS: ANION GAP 15 (5-19); BLOOD UREA NITROGEN 40 mg/dL (7-20); CALCIUM 9.3 mg/dL (8.4-10.2); CARBON DIOXIDE 32 mmol/L (22-30); CHLORIDE 97 mmol/L (98-107); GLUCOSE 89 mg/dL (75-110); POTASSIUM 3.9 mmol/L (3.6-5.0); SODIUM 143.5 mmol/L (137-145)
[2017-06-08] MEDS: HEPARIN SOD (PORCINE) 5,000 UNIT/ML 1 ML SYRINGE SUBCUT SCH (06:11)
--- NOTE | 2017-06-08 07:52 | PDOC DISCHARGE SUMMARY ---
General - Admit/Disc Date/PCP Admission Date/Primary Care Provider: 06/05/17 21:09 ALEXANDR ABRAHAM, Discharge Date: 06/08/17 - Discharge Diagnosis (1) Acute on chronic systolic congestive heart failure, NYHA class 2 Is this a current diagnosis for this admission?: Yes Summary: The patient did well. Her negative balance of fluid was more than 3 L. Her BNP has decreased from 22,000 down to 9000. She did not have any chest pain. (2) Diabetes mellitus Is this a current diagnosis for this admission?: Yes Summary: Her blood sugars have remained stable and will continue with the same medication as an outpatient (3) Hyperlipidemia Is this a current diagnosis for this admission?: Yes Summary: Continue current medications (4) Hypertension Is this a current diagnosis for this admission?: Yes Summary: Continue current treatment. Will consider decreasing valsartan down to 40 mg daily - Additional Information Discharge Diet: Cardiac Discharge Activity: Activity As Tolerated, Balance Activity w/Rest, Weigh Daily Home Medications: Amantadine HCl [Amantadine] 100 mg PO BID 06/06/17 Famotidine [Pepcid 40 mg Tablet] 40 mg PO DAILY 06/06/17 Fluticasone Propionate [Flonase Nasal [place] 50 Mcg/[place] 16 gm] 1 spray NASL DAILY 06/06/17 Fluticasone/Vilanterol [Breo Ellipta 100-25 Mcg INH] 1 puff IH DAILY 06/06/17 Gabapentin [Neurontin] 600 mg PO Q6 06/06/17 Glimepiride [Amaryl 1 mg Tablet] 1 mg PO DAILY 06/06/17 Metoprolol Succinate [Toprol Xl 25 mg Tab.sr] 25 mg PO DAILY 06/06/17 Montelukast Sodium [Singulair 10 mg Tablet] 10 mg PO QHS 06/06/17 Potassium Chloride [Klor-Con 10] 20 meq PO DAILY 06/06/17 Valsartan [Diovan 80 mg Tablet] 80 mg PO DAILY 06/06/17 Furosemide [Lasix 40 mg Tablet] 40 mg PO DAILY tablet 06/08/17 History of Present Illness History of Present Illness: DEANDRE WAYNE is a 77 year old female Hospital Course Hospital Course: The patient was admitted with an acute on chronic congestive heart failure. She had significant amount of diuresis. Her BMP has decreased. She denied any shortness of breath or chest pain. Her cardiac enzymes were borderline most probably consistent with cardiomyopathy she tolerated diuretics well.a Physical Exam Vital Signs: Temp Pulse Resp BP Pulse Ox 97.4 F 71 16 87/63 L 90 L 06/08/17 07:16 06/08/17 07:16 06/08/17 07:16 06/08/17 07:16 06/08/17 07:16 Intake & Output 06/07/17 06/08/17 06/09/17 06:59 06:59 06:59 Intake Total 1010 730 Output Total 1075 Balance -65 730 Weight 73.7 kg 72.4 kg General appearance: PRESENT: no acute distress Head exam: PRESENT: atraumatic Neck exam: PRESENT: carotid bruit Respiratory exam: PRESENT: clear to auscultation marzena Cardiovascular exam: PRESENT: +S1, +S2 GI/Abdominal exam: PRESENT: normal bowel sounds, soft Extremities exam: ABSENT: pedal edema Musculoskeletal exam: PRESENT: ambulatory Neurological exam: PRESENT: alert, awake Results Laboratory Results: 06/08/17 03:48 06/08/17 03:48 06/08/17 06/08/17 03:48 03:48 WBC 4.9 RBC 3.85 Hgb 12.3 Hct 37.4 MCV 97 MCH 32.0 MCHC 33.0 RDW 13.8 Plt Count 159 Seg Neutrophils % 39.7 L Lymphocytes % 42.9 Monocytes % 12.7 Eosinophils % 3.9 Basophils % 0.8 Absolute Neutrophils 1.9 Absolute Lymphocytes 2.1 Absolute Monocytes 0.6 Absolute Eosinophils 0.2 Absolute Basophils 0.0 Sodium 143.5 Potassium 3.9 Chloride 97 L Carbon Dioxide 32 H Anion Gap 15 BUN 40 H Creatinine 1.50 H Est GFR ( Amer) 41 L Est GFR (Non-Af Amer) 34 L Glucose 89 Calcium 9.3 06/06/17 06/06/17 06/06/17 09:00 09:00 14:20 Creatine Kinase 21 L 24 L CK-MB (CK-2) 0.71 Troponin I 0.027 NT-Pro-B Natriuret Pep 06/06/17 06/06/17 06/06/17 14:20 20:46 20:46 Creatine Kinase < 20 L CK-MB (CK-2) 0.69 0.56 Troponin I 0.026 0.035 NT-Pro-B Natriuret Pep 06/07/17 06/07/17 06/07/17 04:21 10:09 10:09 Creatine Kinase 25 L CK-MB (CK-2) 0.72 Troponin I 0.037 NT-Pro-B Natriuret Pep 35169 H 06/07/17 06/07/17 06/07/17 15:00 15:00 20:40 Creatine Kinase 24 L 24 L CK-MB (CK-2) 0.51 Troponin I 0.030 NT-Pro-B Natriuret Pep 06/07/17 06/08/17 20:40 03:48 Creatine Kinase CK-MB (CK-2) 0.42 Troponin I 0.043 NT-Pro-B Natriuret Pep 9860 H Impressions: Chest X-Ray 06/05/17 16:36 IMPRESSION: Minimal left pleural effusion with no acute cardiopulmonary disease. Qualifiers - * PATIENT BEING DISCHARGED WITH ANY OF THE FOLLOWING DIAGNOSIS: Heart Failure VTE patient discharged on overlapping Therapy?: Yes HF Pt being discharged on ACEI for LVEF less than 40%?: Yes HF Pt being discharged on [facility] for LVEF less than 40%?: Yes HF Pt with Afib discharged with Warfarin?: No Reason(s) for not prescribing Warfarin:: Not indicated HF Pt discharged on evidence-based Beta Klaus:: Yes
[2017-06-08] MEDS: FAMOTIDINE 20 MG TABLET PO SCH (09:54)
[2017-06-08] MEDS: METOPROLOL SUCCINATE 25 MG TAB.SR.24H PO SCH (09:55)
[2017-06-08] MEDS: POTASSIUM CHLORIDE 10 MEQ TABLET.SA PO SCH (09:55)
[2017-06-08] MEDS: GLIMEPIRIDE 1 MG TABLET PO SCH (09:56)
[2017-06-08] MEDS: AMANTADINE HCL 100 MG CAPSULE PO SCH (09:56)
[2017-06-08] MEDS: ASPIRIN 81 MG TABLET, ENT COATED PO SCH (09:56)
[2017-06-08] MEDS: FLUTICASONE NASAL SPRAY 50 MCG/SPRY 120 SPRAY/16 GM NASL SCH (09:57)
[2017-06-08] MEDS: VALSARTAN 80 MG TABLET PO SCH (09:57)
[2017-06-08] MEDS ORDERED: FUROSEMIDE 40 MG TABLET PO SCH (10:00)
[2017-06-08 10:02] VITALS: BP 100/63
== END 2017-06-08 10:11 | disposition home or self-care (01) | DRG 291 ==
LOC: ER 15:48 → EH 21:09 → OBSVTOIN 21:09 → 3N 06-06 01:38
PROVIDERS: ADMIT Internal Medicine; ATTEND Internal Medicine
DX: I13.0 Hypertensive heart and chronic kidney disease with heart failure and stage 1 through stage 4 chronic kidney disease, or unspecified chronic kidney disease (principal); I50.23 Acute on chronic systolic (congestive) heart failure; I95.9 Hypotension, unspecified; E11.22 Type 2 diabetes mellitus with diabetic chronic kidney disease; N18.2 Chronic kidney disease, stage 2 (mild); E11.42 Type 2 diabetes mellitus with diabetic polyneuropathy; J45.909 Unspecified asthma, uncomplicated; Z79.84 Long term (current) use of oral hypoglycemic drugs; Z79.899 Other long term (current) drug therapy
CPT/HCPCS: 36415; 71045; 80048; 80053; 82550; 82553; 83735; 83880; 84443; 84484; 85025; 93005; 93010; 96374; 99285; J1644; J1940; J3490

== ENCOUNTER 2017-06-15 23:19 | Inpatient (IN) | payer MEDICARE, OTHER ==
[2017-06-15] MEDS ORDERED: NORMAL SALINE 250 ML IV ONE (23:30)
--- NOTE | 2017-06-15 23:34 | ER Document Report ---
ED General - General Stated Complaint: VOMITING Time Seen by Provider: 06/15/17 23:24 Notes: Patient is a 77-year-old female who presents with complaint of vomiting. She also has had little bit of lower abdominal pain. She got the hospital due to congestive heart failure approximately a week ago. She says since then she has had a lot of nausea and some vomiting. So the only abdominal pain she has is little bit in the right lower quadrant. No diarrhea. No bloody stools. She said bowel movements have been normal and she had a normal bowel movement today. No blood or emesis. She says sometimes her emesis is greenish in color. She says her breathing has been good she has had no excessive fluid accumulation her legs. No chest pain. No other complaints at this time. History of abdominal surgeries. TRAVEL OUTSIDE OF THE [place] IN LAST 30 DAYS: No - Related Data Allergies/Adverse Reactions: No Known Allergies Allergy (Verified 06/05/17 15:49) Past Medical History - Social History Smoking Status: Unknown if Ever Smoked Frequency of alcohol use: None Drug Abuse: None Family History: Reviewed & Not Pertinent - Past Medical History Cardiac Medical History: Reports: Hx Hypertension Denies: Hx Heart Attack Pulmonary Medical History: Reports: Hx Asthma - NO INHALER Neurological Medical History: Denies: Hx Cerebrovascular Accident, Hx Seizures Endocrine Medical History: Reports: Hx Diabetes Mellitus Type 2 Renal/ Medical History: Denies: Hx Peritoneal Dialysis GI Medical History: Denies: Hx Hepatitis, Hx Hiatal Hernia, Hx Ulcer Psychiatric Medical History: Denies: Hx Depression Infectious Medical History: Denies: Hx Hepatitis Past Surgical History: Denies: Hx Mastectomy, Hx Open Heart Surgery, Hx Pacemaker Review of Systems - Review of Systems Notes: My Normal Review Basic REVIEW OF SYSTEMS: CONSTITUTIONAL : Denies fever, chills, or sweats. Denies recent illness. EENT: Denies eye, ear, throat, or mouth pain or symptoms. Denies nasal or sinus congestion. CARDIOVASCULAR: Denies chest pain. RESPIRATORY: Denies cough, cold, or chest congestion. Denies shortness of breath, difficulty breathing, or wheezing. GASTROINTESTINAL: Some mild right lower quadrant abdominal pain. Some vomiting. No diarrhea. GENITOURINARY: Denies difficulty urinating, painful urination, burning, frequency, or blood in urine. MUSCULOSKELETAL: Denies neck or back pain or joint pain or swelling. SKIN: Denies rash or skin lesions. NEUROLOGICAL: Denies altered mental status or loss of consciousness. Denies headache. Denies weakness or paralysis or loss of use of either side. Denies problems with gait or speech. Denies sensory or motor loss. ALL OTHER SYSTEMS REVIEWED AND NEGATIVE. Physical Exam - Vital signs Vitals: Resp 20 06/15/17 23:52 - Notes Notes: General Appearance: Well nourished, alert, cooperative, no acute distress, no obvious discomfort. well-appearing. Vitals: reviewed, See vital signs table. Head: no swelling or tenderness to the head Eyes: PERRL, EOMI, Conjuctiva clear Mouth: No decreasd moisture Neck: Supple, no neck tenderness, No thyromegaly Lungs: No wheezing, No rales, No rhonci, No accessory muscle use, good air exchange bilaterally. Heart: Normal rate, Regular rythm, No murmur, no rub Abdomen: Normal BS, soft, No rigidity, No reproducible abdominal tenderness to palpation, No guarding, no rebound, no abdominal masses Extremities: good pulses in all extremities, no swelling or tenderness in the extremities, no edema. Skin: warm, dry, appropriate color, no rash Neuro: speech clear, oriented x 3, normal affect, responds appropriately to questions. Course - Re-evaluation Re-evalutation: 06/16/17 00:52 On reevaluation patient continues to not have any difficulty breathing. Her nausea has remained gone after receiving the Zofran by the paramedics. She did receive her initial 250 mL bolus was started with a months. Blood pressure is now on the systolically 88. She says she feels improved. Her son is now bedside and says that when she first came from not home in the hospital was started back on Lasix she was urinating well. She is also been having less p.o. intake as well because they told her to drink less. Son says that in the last several days she has had little urine output despite taking Lasix but also has not been eating or drinking a lot. Suspect that she is now over diuresis and actually dry. I will continue to give her small fluid boluses as I do not want a fluid overload or as she does have a history of significant CHF. I will give her another 250 mL bolus of normal saline. 06/16/17 02:27 Patient's 4 she said that she did try to urinate in a cup but missed the cup. I did ultrasound her bladder and her bladder is flat without a urine and therefore straight cath would not be of any benefit right now. Her chest x-ray does show some mild pulmonary vascular congestion. She still is having some intermittent hypotension yet clinically looks very well and is no longer nauseous. I will place her on a normal saline maintenance drip at 100 mL's an hour to slowly rehydrated without hopefully pressure back in the pulmonary edema. Once she has some urine in her bladder we will obtain straight cath. 06/16/17 03:48 We eventually did get straight cath urine. It was very very cloudy and did come back showing obvious signs of urinary tract infection. This most likely is why she has been vomiting and not eating a whole lot last few days. This in conjunction with being restarted on her Lasix is probably led to her dehydration and worsening of her renal insufficiency. I have been slowly giving her fluids. Debbie has some point vascular congestion on x-ray and therefore I do not feel that we can quickly bolster. I have now placed her fluids at a rate of 100 mL's an hour and she is received approximately 750 mL's of normal saline over the last 4 hours. She does have hypertension. Her blood pressure ranges anywhere from the upper 70s to the low 90s. Manual blood pressure was in the upper 80s systolically. I did review her blood pressure from when she was admitted to the hospital and her blood pressure seem to be consistently in that same range as well. Suspect based on her previous vital signs that this could be chronic for her. Feel that she does require admission though being that she has had quite a bit of vomiting over last 24 hours nor has renal sufficiency does have the ongoing urinary tract infection. I have given a dose of Rocephin we will send urine for culture. I will speak with hospitalist, Dr. Patel, who agrees to admit the patient. Patient is a primary care patient of Reyes Blackwell MD. Dictation of this chart was performed using voice recognition software; therefore, there may be some unintended grammatical errors. - Vital Signs Vital signs: Temp Pulse Resp BP Pulse Ox 97.9 F 16 88/68 L 95 06/15/17 23:57 06/16/17 03:03 06/16/17 03:06 06/16/17 03:03 - Laboratory Result Diagrams: 06/15/17 23:45 06/15/17 23:45 Laboratory results interpreted by me: 06/15/17 06/15/17 06/16/17 23:45 23:45 03:20 MCV 98 H Potassium 5.5 H BUN 50 H Creatinine 2.14 H Est GFR ( Amer) 27 L Est GFR (Non-Af Amer) 22 L Glucose 136 H Urine Protein 100 H Urine Blood SMALL H Urine Urobilinogen 2.0 H Ur Leukocyte Esterase LARGE H - EKG Interpretation by Me Additional EKG results interpreted by me: 06/16/17 01:09 EKG is reviewed and interpreted by me. EKG shows sinus rhythm with rate [address] segment elevation or depression. She does have a left bundle branch block which is chronic and unchanged comparison to her old EKG from June. OR interval is slightly prolonged. QRS duration QTc intervals are prolonged. Discharge - Discharge Clinical Impression: UTI (urinary tract infection) Qualifiers: Urinary tract infection type: site unspecified Hematuria presence: without hematuria Qualified Code(s): N39.0 - Urinary tract infection, site not specified Hypotension Qualifiers: Hypotension type: unspecified hypotension type Qualified Code(s): I95.9 - Hypotension, unspecified Vomiting Qualifiers: Vomiting type: unspecified Vomiting Intractability: non-intractable Nausea presence: with nausea Qualified Code(s): R11.2 - Nausea with vomiting, unspecified Acute on chronic renal failure Qualifiers: Acute renal failure type: unspecified Chronic kidney disease stage: unspecified stage Qualified Code(s): N17.9 - Acute kidney failure, unspecified; N18.9 - Chronic kidney disease, unspecified; N18.9 - Chronic kidney disease, unspecified Condition: Stable Disposition: ADMITTED INPATIENT Admitting Provider: Rosalva Unit Admitted: [facility]
[2017-06-15 23:53] LABS: ABSOLUTE BASOPHILS # (AUTO) 0.1 10^3/uL (0.0-0.2); ABSOLUTE EOSINOPHILS # (AUTO) 0.1 10^3/uL (0.0-0.6); ABSOLUTE LYMPHOCYTES (AUTO) 1.9 10^3/uL (0.5-4.7); ABSOLUTE MONOCYTES (AUTO) 0.9 10^3/uL (0.1-1.4); ABSOLUTE NEUT (AUTO) 5.9 10^3/uL (1.7-8.2); BASOPHILS % (AUTO) 0.9 % (0-2); EOSINOPHILS % (AUTO) 1.6 % (0-6); HEMATOCRIT 40.7 % (36.0-47.0); HEMOGLOBIN 13.3 g/dL (12.0-15.5); LYMPHOCYTES % (AUTO) 21.2 % (13-45); MEAN CORPUSCULAR HGB CONC 32.7 g/dL (32.0-36.0); MEAN CORPUSCULAR VOLUME 98 fl (80-97); MONOCYTES % (AUTO) 10.2 % (3-13); PLATELET COUNT 168 10^3/uL (150-450); RED BLOOD COUNT 4.16 10^6/uL (3.72-5.28); RED CELL DISTRIBUTION WIDTH 13.7 % (11.5-14.0); SEGMENTED NEUTROPHILS % (AUTO) 66.1 % (42-78); TOTAL CELLS COUNTED % (AUTO) 100 %; WHITE BLOOD COUNT 8.9 10^3/uL (4.0-10.5)
[2017-06-16 00:03] LABS: ALANINE AMINOTRANSFERASE 26 U/L (9-52); ALBUMIN 3.9 g/dL (3.5-5.0); ALKALINE PHOSPHATASE 66 U/L (38-126); ANION GAP 13 (5-19); ASPARTATE AMINO TRANSFERASE 27 U/L (14-36); BILIRUBIN,DIRECT 0.4 mg/dL (0.0-0.4); BILIRUBIN,TOTAL 0.5 mg/dL (0.2-1.3); BLOOD UREA NITROGEN 50 mg/dL (7-20); CALCIUM 9.9 mg/dL (8.4-10.2); CARBON DIOXIDE 27 mmol/L (22-30); CHLORIDE 99 mmol/L (98-107); GLUCOSE 136 mg/dL (75-110); POTASSIUM 5.5 mmol/L (3.6-5.0); SODIUM 139.4 mmol/L (137-145); TOTAL PROTEIN 7.4 g/dL (6.3-8.2)
[2017-06-16] MEDS ORDERED: NORMAL SALINE 250 ML IV ONE ×2 (00:52→02:26)
--- NOTE | 2017-06-16 01:42 | RADIOLOGY REPORT (SQ) ---
EXAM DESCRIPTION: CR acute abdominal series CLINICAL HISTORY: 77 years Female, abdominal pain, vomiting COMPARISON: None. NUMBER OF VIEWS/TECHNIQUE: 3 LIMITATIONS: None. FINDINGS: Intestinal gas pattern is within normal limits. 0.6 cm calcification at the right renal silhouette may indicate a right renal stone. Grossly intact skeletal structures. Prominent cardiac silhouette. Pulmonary vascular congestion. IMPRESSION: Pulmonary vascular congestion. Possible 0.6 cm right renal stone.
[2017-06-16 03:36] LABS: AMORPHOUS SEDIMENT,URINE TRACE /HPF; APPEARANCE,URINE TURBID; BILIRUBIN,URINE NEGATIVE (NEGATIVE); COLOR,URINE YELLOW; GLUCOSE, URINE NEGATIVE (NEGATIVE); KETONES,URINE NEGATIVE (NEGATIVE); LEUKOCYTE ESTERASE,URINE LARGE (NEGATIVE); NITRITE,URINE NEGATIVE (NEGATIVE); PROTEIN,URINE 100 mg/dL (NEGATIVE); URINE SPECIFIC GRAVITY 1.016
[2017-06-16] MEDS ORDERED: CEFTRIAXONE INJ 1000 MG VIAL IV ONE (03:40)
[2017-06-16] MEDS ORDERED: LACTULOSE SYRUP 20 GM/30 ML UDCUP PR ONE ×2 (03:47→22:17)
[2017-06-16] MEDS ORDERED: ONDANSETRON HCL INJ/PF 4 MG/2 ML SDV IV PRN (03:48)
[2017-06-16] MEDS ORDERED: MAGNESIUM HYDROXIDE SUSP 30 ML UDCUP PO PRN (03:48)
[2017-06-16] MEDS ORDERED: METOPROLOL TARTRATE PF/INJ 5 MG/5 ML SDV IV PRN (03:48)
[2017-06-16] MEDS: NORMAL SALINE 1000 ML 1,000 ML IV PRN ×4 (04:13→21:44)
[2017-06-16] MEDS: HEPARIN SOD (PORCINE) 5,000 UNIT/ML 1 ML SYRINGE SUBCUT SCH ×3 (06:13→21:46)
--- NOTE | 2017-06-16 07:19 | PDOC H&P ---
History of Present Illness Admission Date/PCP: 06/16/17 03:55 ALEXANDR ABRAHAM, Patient complains of: Nausea and vomiting History of Present Illness: DEANDRE WAYNE is a 77 year old female with a past medical history of congestive heart failure, hypertension, dyslipidemia, diabetes with neuropathy, stage II chronic kidney disease. She was recently discharged following an exacerbation of heart failure. She presents with 12 hours of nausea vomiting of dark foul- smelling material. She denies chest pain palpitations or shortness of breath. In the emergency room she is found to have hypotension, acute renal failure, pyuria without leukocytosis and fecal impaction. She receives an IV fluid challenge, empiric antibiotics and referred to the hospitalist for admission. Patient does not recall her last normal bowel movement. Past Medical History Cardiac Medical History: Reports: Hypertension Denies: Myocardial Infarction Pulmonary Medical History: Reports: Asthma - NO INHALER Neurological Medical History: Denies: Seizures Endocrine Medical History: Reports: Diabetes Mellitus Type 2 GI Medical History: Denies: Hepatitis, Hiatal Hernia Psychiatric Medical History: Denies: Depression Hematology: Denies: Anemia, Sickle Cell Disease Past Surgical History Past Surgical History: Denies: Amputation, Mastectomy, Pacemaker Social History Information Source: Patient, [facility] Records Smoking Status: Never Smoker Frequency of Alcohol Use: None Hx Recreational Drug Use: No Drugs: None Hx Prescription Drug Abuse: No - Advance Directive Resuscitation Status: Full Code Family History Family History: Reviewed & Not Pertinent Parental Family History Reviewed: Yes Children Family History Reviewed: Yes Sibling(s) Family History Reviewed.: Yes Medication/Allergy Home Medications: Amantadine HCl [Amantadine] 100 mg PO BID 06/06/17 Famotidine [Pepcid 40 mg Tablet] 40 mg PO DAILY 06/06/17 Fluticasone Propionate [Flonase Nasal [place] 50 Mcg/[place] 16 gm] 1 spray NASL DAILY 06/06/17 Fluticasone/Vilanterol [Breo Ellipta 100-25 Mcg INH] 1 puff IH DAILY 06/06/17 Gabapentin [Neurontin] 600 mg PO Q6 06/06/17 Glimepiride [Amaryl 1 mg Tablet] 1 mg PO DAILY 06/06/17 Metoprolol Succinate [Toprol Xl 25 mg Tab.sr] 25 mg PO DAILY 06/06/17 Montelukast Sodium [Singulair 10 mg Tablet] 10 mg PO QHS 06/06/17 Potassium Chloride [Klor-Con 10] 20 meq PO DAILY 06/06/17 Valsartan [Diovan 80 mg Tablet] 80 mg PO DAILY 06/06/17 Furosemide [Lasix 40 mg Tablet] 40 mg PO DAILY tablet 06/08/17 Allergies/Adverse Reactions: No Known Allergies Allergy (Verified 06/05/17 15:49) Review of Systems Constitutional: PRESENT: as per HPI, anorexia, fatigue, weakness. ABSENT: fever (s) Eyes: ABSENT: visual disturbances Ears: ABSENT: hearing changes Cardiovascular: ABSENT: chest pain, dyspnea on exertion, edema, orthropnea, palpitations Respiratory: ABSENT: cough, hemoptysis Gastrointestinal: PRESENT: as per HPI, abdominal pain, bloating, constipation, nausea, vomiting. ABSENT: diarrhea Genitourinary: ABSENT: dysuria, hematuria Musculoskeletal: ABSENT: joint swelling Integumentary: ABSENT: rash, wounds Neurological: ABSENT: abnormal gait, abnormal speech, confusion, dizziness, focal weakness, syncope Psychiatric: ABSENT: anxiety, depression, homidical ideation, suicidal ideation Endocrine: ABSENT: cold intolerance, heat intolerance, polydipsia, polyuria Hematologic/Lymphatic: ABSENT: easy bleeding, easy bruising Physical Exam Vital Signs: Temp Pulse Resp BP Pulse Ox 97.3 F 58 L 20 81/60 L 99 06/16/17 05:52 06/16/17 05:52 06/16/17 05:52 06/16/17 05:52 06/16/17 05:52 Intake & Output 06/14/17 06/15/17 06/16/17 11:59 11:59 11:59 Intake Total 50 Output Total 0 Balance 50 Weight 71.4 kg General appearance: PRESENT: cooperative, disheveled, mild distress, obese Head exam: PRESENT: atraumatic, normocephalic Eye exam: PRESENT: conjunctiva pink, EOMI, PERRLA. ABSENT: scleral icterus Ear exam: PRESENT: normal external ear exam Mouth exam: PRESENT: dry mucosa, tongue midline Neck exam: ABSENT: carotid bruit, JVD, lymphadenopathy, thyromegaly Respiratory exam: PRESENT: clear to auscultation marzena. ABSENT: rales, rhonchi, wheezes Cardiovascular exam: PRESENT: RRR. ABSENT: diastolic murmur, rubs, systolic murmur Pulses: PRESENT: normal dorsalis pedis pul Vascular exam: PRESENT: normal capillary refill GI/Abdominal exam: PRESENT: diminished bowel sounds, distended, firm, hypoactive bowel sounds, tenderness. ABSENT: rebound, rigid Rectal exam: PRESENT: deferred Extremities exam: PRESENT: full ROM. ABSENT: calf tenderness, clubbing, pedal edema Neurological exam: PRESENT: alert, awake, oriented to person, oriented to place , oriented to time, oriented to situation, CN II-XII grossly intact. ABSENT: motor sensory deficit Psychiatric exam: PRESENT: appropriate affect, normal mood. ABSENT: homicidal ideation, suicidal ideation Skin exam: PRESENT: dry, intact, warm. ABSENT: cyanosis, rash Results Impressions: Acute Abdomen Series 06/16/17 00:00 IMPRESSION: Pulmonary vascular congestion. Possible 0.6 cm right renal stone. Assessment & Plan - Diagnosis (1) Fecal impaction Is this a current diagnosis for this admission?: Yes Plan: Lactulose enema, manual disimpaction. Clear liquid trial (2) Acute on chronic renal failure Qualifiers: Acute renal failure type: unspecified Chronic kidney disease stage: unspecified stage Qualified Code(s): N17.9 - Acute kidney failure, unspecified ; N18.9 - Chronic kidney disease, unspecified; N18.9 - Chronic kidney disease, unspecified Is this a current diagnosis for this admission?: Yes Plan: Prerenal, hold loop diuretic, IV fluid challenge, follow-up chemistry (3) Hypotension Qualifiers: Hypotension type: unspecified hypotension type Qualified Code(s): I95.9 - Hypotension, unspecified Is this a current diagnosis for this admission?: Yes Plan: Secondary to the above, IV fluid challenge, hold loop diuretic (4) UTI (urinary tract infection) Qualifiers: Urinary tract infection type: site unspecified Hematuria presence: without hematuria Qualified Code(s): N39.0 - Urinary tract infection, site not specified Is this a current diagnosis for this admission?: Yes Plan: Without leukocytosis or fever. Empiric antibiotics, follow-up CBC and urine culture. - Time Time Spent: 50 to 70 Minutes - Inpatient Certification Medical Necessity: Need Close Monitoring Due to Risk of Patient Decompensation
--- NOTE | 2017-06-16 08:58 | EKG REPORT ---
SEVERITY:- ABNORMAL ECG - SINUS RHYTHM LEFT BUNDLE BRANCH BLOCK : Confirmed by: Denys Cano MD 16-Jun-2017 08:57:30
[2017-06-16] MEDS ORDERED: NORMAL SALINE 500 ML IV ONE ×2 (09:00→10:30)
[2017-06-16] MEDS: DOCUSATE SODIUM 100 MG CAPSULE PO SCH ×2 (09:03→17:12)
[2017-06-16] MEDS ORDERED: DEXTROSE 50%-WATER SYRINGE 12.5 GM/25 ML DOSE IV PRN (09:55)
[2017-06-16] MEDS ORDERED: DEXTROSE 50%-WATER SYRINGE 25 GM/50 ML DOSE IV PRN (09:55)
[2017-06-16] MEDS ORDERED: DEXTROSE 40% GEL 15 GM TUBE X 2 PO PRN (09:55)
[2017-06-16] MEDS ORDERED: GLUCAGON,HUMAN RECOMB 1 MG INJ IM PRN (09:55)
[2017-06-16] MEDS ORDERED: DEXTROSE 40% GEL 15 GM TUBE PO PRN (09:55)
[2017-06-16] MEDS ORDERED: INSULIN LISPRO 100 UNIT/ML 3 ML VIAL SUBCUT PRN (09:55)
--- NOTE | 2017-06-16 12:49 | Progress Note ---
Provider Note Provider Note: Nursing called and stated they were having difficulty getting her blood pressure. I went up and found her awake and pleasantly confused but conversational. I too was unable to reliably get a blood pressure that I was confident of even with a Doppler. I will move her to the ICU for closer observation, continue aggressive hydration , add pressors as needed to maintain a map of 60.
[2017-06-16] MEDS ORDERED: DOPAMINE HCL/DEXTROSE 5%-WATER 800 MG/250 ML RTUINJ IV ONE (13:13)
[2017-06-16] MEDS: DOPAMINE HCL/DEXTROSE 5%-WATER 800 MG/250 ML RTUINJ IV PRN (13:44)
[2017-06-16] MEDS ORDERED: NORMAL SALINE 1000 ML 1,000 ML IV ONE ×2 (14:00→16:00)
[2017-06-16 14:28] LABS: ABSOLUTE BASOPHILS # (AUTO) 0.1 10^3/uL (0.0-0.2); ABSOLUTE MONOCYTES (AUTO) 0.5 10^3/uL (0.1-1.4); ABSOLUTE NEUT (AUTO) 3.9 10^3/uL (1.7-8.2); EOSINOPHILS % (AUTO) 0.7 % (0-6); HEMATOCRIT 41.5 % (36.0-47.0); HEMOGLOBIN 13.5 g/dL (12.0-15.5); LYMPHOCYTES % (AUTO) 30.6 % (13-45); MEAN CORPUSCULAR HEMOGLOBIN 31.7 pg (27.0-33.4); MEAN CORPUSCULAR HGB CONC 32.4 g/dL (32.0-36.0); MEAN CORPUSCULAR VOLUME 98 fl (80-97); MONOCYTES % (AUTO) 8.1 % (3-13); PLATELET COUNT 172 10^3/uL (150-450); RED BLOOD COUNT 4.24 10^6/uL (3.72-5.28); RED CELL DISTRIBUTION WIDTH 13.9 % (11.5-14.0); SEGMENTED NEUTROPHILS % (AUTO) 59.6 % (42-78); TOTAL CELLS COUNTED % (AUTO) 100 %; WHITE BLOOD COUNT 6.5 10^3/uL (4.0-10.5)
[2017-06-16] MEDS ORDERED: SODIUM POLYSTYRENE SULFONATE 15 GM/60 ML ONE (15:29)
[2017-06-16] MEDS ORDERED: CALCIUM GLUCONATE 1000 MG/10 ML INJ IV ONE ×2 (15:29→16:00)
[2017-06-16] MEDS ORDERED: SODIUM POLYSTYRENE SULFONATE 15 GM/60 ML PO ONE (16:00)
[2017-06-16] MEDS ORDERED: IPRATROPIUM/ALBUTEROL 0.5-2.5 MG/3 ML AMPUL NEB PRN (16:00)
[2017-06-16 16:38] LABS: ANION GAP 16 (5-19); BLOOD UREA NITROGEN 51 mg/dL (7-20); CALCIUM 8.9 mg/dL (8.4-10.2); CARBON DIOXIDE 22 mmol/L (22-30); CHLORIDE 106 mmol/L (98-107); GLUCOSE 122 mg/dL (75-110); SODIUM 144.3 mmol/L (137-145)
[2017-06-16 16:45] LABS: POTASSIUM 7.1 mmol/L (3.6-5.0)
[2017-06-16] MEDS ORDERED: PHENYLEPHRINE HCL INJ/PF 10 MG/1 ML SDV ONE (17:11)
[2017-06-16] MEDS ORDERED: FUROSEMIDE INJ/PF 40 MG/4 ML SDV ONE (17:12)
[2017-06-16] MEDS ORDERED: FUROSEMIDE INJ/PF 40 MG/4 ML SDV IV ONE (17:30)
--- NOTE | 2017-06-16 18:27 | RADIOLOGY REPORT (SQ) ---
EXAM DESCRIPTION: CHEST SINGLE VIEW COMPLETED DATE/TIME: 06/16/2017 6:10 pm REASON FOR STUDY: Central line placement COMPARISON: 06/05/2017 EXAM PARAMETERS: NUMBER OF VIEWS: One view. TECHNIQUE: Single frontal radiographic view of the chest acquired. RADIATION DOSE: NA LIMITATIONS: None. FINDINGS: LUNGS AND PLEURA: Left pleural reaction. Right lung is clear. No pneumothorax. MEDIASTINUM AND HILAR STRUCTURES: No masses. Contour normal. HEART AND VASCULAR STRUCTURES: Heart normal in size. Normal vasculature. BONES: No acute findings. HARDWARE: Venous access catheter via left IJ approach. Tip is at the junction of the left subclavian and superior vena cava. OTHER: No other significant finding. IMPRESSION: Venous access catheter tip junction left subclavian and IVC. No pneumothorax. TECHNICAL DOCUMENTATION: JOB ID: [id number] [employer]- All Rights Reserved Reading location - IP/workstation name: [email or web address]
[2017-06-16] MEDS ORDERED: HYDROCORTISONE SOD SUCCINATE INJ/PF 100 MG/2 ML SDV IV ONE (19:27)
[2017-06-16] MEDS ORDERED: NORMAL SALINE 250 ML with FUROSEMIDE 250 MG IV PRN ×2 (19:49)
[2017-06-16] MEDS ORDERED: FUROSEMIDE INJ/PF 100 MG/10 ML SDV ONE (20:19)
[2017-06-16] MEDS: CEFTRIAXONE 1 GM/D5W RTU 1 GM/50 ML RTUPB IV SCH (21:41)
[2017-06-16 22:17] LABS: ANION GAP 18 (5-19); BLOOD UREA NITROGEN 48 mg/dL (7-20); CALCIUM 9.2 mg/dL (8.4-10.2); CARBON DIOXIDE 20 mmol/L (22-30); CHLORIDE 107 mmol/L (98-107); GLUCOSE 141 mg/dL (75-110); SODIUM 144.5 mmol/L (137-145)
--- NOTE | 2017-06-16 23:44 | Operative Report ---
Nonrecallable Operative Report DATE OF SURGERY: 06/16/17 PREOPERATIVE DIAGNOSIS: 1. Hypotension. 2. Urosepsis. 3. phlebosclerosis POSTOPERATIVE DIAGNOSIS: Same as above OPERATION: 1. Ultrasound-guided central venous puncture. 2. Left internal jugular vein central line placement SURGEON: SAMAN CHUNG ANESTHESIA: Local TISSUE REMOVED OR ALTERED: none COMPLICATIONS: None apparent ESTIMATED BLOOD LOSS: Minimal PROCEDURE: Drains/implants: Central line to the left internal jugular vein at 14 cm. After informed consent was obtained, the patient was laid in the Trendelenburg position in the intensive care unit. The area of the left neck and chest were prepped and draped in a normal sterile fashion. The ultrasound was used to identify the left internal jugular vein. It was compressible with normal flow. The left neck was infiltrated with 1% lidocaine. The left internal jugular vein was then accessed under direct ultrasonic guidance. Dark venous, nonpulsatile blood was returned in the syringe. The wire was inserted into the vein very easily. The wire was confirmed to be within the lumen of the vein using the ultrasound device. Once this was complete, the catheter was slid over the wire using a modified Seldinger technique. The catheter was aspirated and flushed 3 without difficulty. The ports returned nonpulsatile, dark venous blood. The catheter was sutured to the skin and a dressing was fashioned. At this time the procedure was concluded. All sponge, instrument, and needle counts were correct 2. Condition: Critical.
[2017-06-17] MEDS ORDERED: LACTULOSE SYRUP 20 GM/30 ML UDCUP ONE (01:12)
[2017-06-17] MEDS ORDERED: PHENYLEPHRINE HCL INJ/PF 10 MG/1 ML SDV ONE (04:17)
[2017-06-17 05:16] LABS: ABSOLUTE LYMPHOCYTES (AUTO) 0.6 10^3/uL (0.5-4.7); ABSOLUTE MONOCYTES (AUTO) 0.9 10^3/uL (0.1-1.4); ABSOLUTE NEUT (AUTO) 8.1 10^3/uL (1.7-8.2); BASOPHILS % (AUTO) 0.5 % (0-2); HEMATOCRIT 39.3 % (36.0-47.0); HEMOGLOBIN 13.2 g/dL (12.0-15.5); LYMPHOCYTES % (AUTO) 6.7 % (13-45); MEAN CORPUSCULAR HEMOGLOBIN 32.9 pg (27.0-33.4); MEAN CORPUSCULAR HGB CONC 33.5 g/dL (32.0-36.0); MEAN CORPUSCULAR VOLUME 98 fl (80-97); MONOCYTES % (AUTO) 9.2 % (3-13); PLATELET COUNT 182 10^3/uL (150-450); RED CELL DISTRIBUTION WIDTH 13.6 % (11.5-14.0); SEGMENTED NEUTROPHILS % (AUTO) 83.6 % (42-78); TOTAL CELLS COUNTED % (AUTO) 100 %; WHITE BLOOD COUNT 9.7 10^3/uL (4.0-10.5)
[2017-06-17] MEDS: HEPARIN SOD (PORCINE) 5,000 UNIT/ML 1 ML SYRINGE SUBCUT SCH ×3 (05:23→21:32)
[2017-06-17] MEDS: DEXTROSE 5%-WATER 250 ML with PHENYLEPHRINE HCL 40 MG IV PRN ×8 (05:23→23:58)
[2017-06-17 05:37] LABS: ANION GAP 19 (5-19); BLOOD UREA NITROGEN 42 mg/dL (7-20); CALCIUM 8.9 mg/dL (8.4-10.2); CARBON DIOXIDE 22 mmol/L (22-30); CHLORIDE 108 mmol/L (98-107); GLUCOSE 168 mg/dL (75-110); SODIUM 148.6 mmol/L (137-145)
[2017-06-17] MEDS: DOCUSATE SODIUM 100 MG CAPSULE PO SCH ×2 (09:04→17:38)
[2017-06-17] MEDS ORDERED: VANCOMYCIN HCL 0 MG in DEXTROSE 5%-WATER 250 ML IV NR (14:15)
--- NOTE | 2017-06-17 14:38 | PDOC PROGRESS REPORT ---
Subjective Progress Note for:: 06/17/17 Subjective:: No current complaints beyond wanting something solid to eat. Moving her bowels. Still on considerable pressors. Reason For Visit: HYPOTENSION VOMITING, FECAL IMPACTION,UTI,ARF Physical Exam Vital Signs: Temp Pulse Resp BP Pulse Ox 98.1 F 80 22 H 104/43 L 100 06/17/17 12:00 06/17/17 12:00 06/17/17 12:19 06/17/17 12:19 06/17/17 12:19 Intake & Output 06/16/17 06/17/17 06/18/17 05:59 05:59 05:59 Intake Total 2943 600 Output Total 2053 2800 Balance 887 -2200 Weight 157 lb 6.561 oz 159 lb 2.78 oz General appearance: PRESENT: no acute distress Respiratory exam: PRESENT: clear to auscultation marzena Cardiovascular exam: PRESENT: RRR GI/Abdominal exam: PRESENT: soft. ABSENT: tenderness Gentrourinary exam: PRESENT: indwelling catheter Neurological exam: PRESENT: alert, oriented to person, oriented to place Skin exam: PRESENT: warm Results Laboratory Results: 06/17/17 05:00 06/17/17 05:00 06/16/17 06/16/17 06/16/17 14:09 14:09 15:55 WBC 6.5 RBC 4.24 Hgb 13.5 Hct 41.5 MCV 98 H MCH 31.7 MCHC 32.4 RDW 13.9 Plt Count 172 Seg Neutrophils % 59.6 Lymphocytes % 30.6 Monocytes % 8.1 Eosinophils % 0.7 Basophils % 1.0 Absolute Neutrophils 3.9 Absolute Lymphocytes 2.0 Absolute Monocytes 0.5 Absolute Eosinophils 0.0 Absolute Basophils 0.1 Sodium Cancelled 144.3 Potassium Cancelled 7.1 H* D Chloride Cancelled 106 Carbon Dioxide Cancelled 22 Anion Gap Cancelled 16 BUN Cancelled 51 H Creatinine Cancelled 2.51 H Est GFR ( Amer) Cancelled 22 L Est GFR (Non-Af Amer) Cancelled 19 L Glucose Cancelled 122 H Calcium Cancelled 8.9 Magnesium Cancelled 2.4 H 06/16/17 06/17/17 06/17/17 20:50 05:00 05:00 WBC 9.7 RBC 4.00 Hgb 13.2 Hct 39.3 MCV 98 H MCH 32.9 MCHC 33.5 RDW 13.6 Plt Count 182 Seg Neutrophils % 83.6 H Lymphocytes % 6.7 L Monocytes % 9.2 Eosinophils % 0.0 Basophils % 0.5 Absolute Neutrophils 8.1 Absolute Lymphocytes 0.6 Absolute Monocytes 0.9 Absolute Eosinophils 0.0 Absolute Basophils 0.0 Sodium 144.5 148.6 H Potassium 6.0 H* D 4.0 D Chloride 107 108 H Carbon Dioxide 20 L 22 Anion Gap 18 19 BUN 48 H 42 H Creatinine 2.44 H 2.21 H Est GFR ( Amer) 23 L 26 L Est GFR (Non-Af Amer) 19 L 21 L Glucose 141 H 168 H Calcium 9.2 8.9 Magnesium 06/16/17 06/16/17 15:55 20:50 Troponin I 0.034 NT-Pro-B Natriuret Pep [id number] H Impressions: Acute Abdomen Series 06/16/17 00:00 IMPRESSION: Pulmonary vascular congestion. Possible 0.6 cm right renal stone. Chest X-Ray 06/16/17 00:00 IMPRESSION: Venous access catheter tip junction left subclavian and IVC. No pneumothorax. Assessment & Plan - Diagnosis (1) Septic shock Is this a current diagnosis for this admission?: Yes Plan: Very odd picture. No leukocytosis or fever. But requiring considerable pressors to maintain blood pressure. More than volume replete. Her CVP last night was 23. She has been on a Lasix drip since and her CVP is now down to 16. Urine is growing out gram-positive cocci in clusters so I will add vancomycin until we get speciation. Blood cultures have been negative 24 hours (2) Hyperkalemia Is this a current diagnosis for this admission?: Yes Plan: Resolved. Treated with Kayexalate, calcium gluconate, albuterol, Lasix. Continue to monitor closely (3) Cardiorenal syndrome Qualifiers: Heart failure presence: with heart failure Is this a current diagnosis for this admission?: Yes Plan: Continue diuresis (4) Acute on chronic renal failure Qualifiers: Acute renal failure type: unspecified Chronic kidney disease stage: unspecified stage Qualified Code(s): N17.9 - Acute kidney failure, unspecified ; N18.9 - Chronic kidney disease, unspecified; N18.9 - Chronic kidney disease, unspecified Is this a current diagnosis for this admission?: Yes (5) UTI (urinary tract infection) Qualifiers: Urinary tract infection type: site unspecified Hematuria presence: without hematuria Qualified Code(s): N39.0 - Urinary tract infection, site not specified Is this a current diagnosis for this admission?: Yes Plan: Initially treated with Rocephin
[2017-06-17] MEDS ORDERED: NORMAL SALINE 250 ML with FUROSEMIDE 250 MG IV PRN ×2 (14:44)
[2017-06-17] MEDS: DOPAMINE HCL/DEXTROSE 5%-WATER 800 MG/250 ML RTUINJ IV PRN (14:53)
[2017-06-17 16:59] LABS: ALBUMIN 3.4 g/dL (3.5-5.0); ANION GAP 17 (5-19); BLOOD UREA NITROGEN 38 mg/dL (7-20); CALCIUM 8.6 mg/dL (8.4-10.2); CARBON DIOXIDE 27 mmol/L (22-30); CHLORIDE 101 mmol/L (98-107); GLUCOSE 159 mg/dL (75-110); PHOSPHORUS 3.9 mg/dL (2.5-4.5); SODIUM 144.9 mmol/L (137-145)
[2017-06-17 17:03] LABS: POTASSIUM 2.3 mmol/L (3.6-5.0)
[2017-06-17] MEDS ORDERED: POTASSI CL 20 MEQ/50 ML RIDER 20 MEQ/50 ML RTUPB IV ONE ×2 (17:05→17:57)
[2017-06-17] MEDS ORDERED: MAGNESIUM SULFATE/D5W 1 GM/100 ML RTUPB IV ONE ×2 (17:06→17:57)
[2017-06-17] MEDS: POTASSIUM CHLORIDE 20 MEQ/50 ML RTU IV SCH ×3 (17:58→21:33)
[2017-06-17] MEDS: MAGNESIUM SULFATE 1 GM/D5W 100 ML IV SCH ×2 (17:58→19:16)
[2017-06-17] MEDS ORDERED: VANCOMYCIN HCL 1,000 MG in DEXTROSE 5%-WATER 250 ML IV SCH (18:00)
[2017-06-17] MEDS: CEFTRIAXONE 1 GM/D5W RTU 1 GM/50 ML RTUPB IV SCH (21:47)
[2017-06-18] MEDS ORDERED: NOREPINEPHRINE BITARTRATE INJ/PF 4 MG/4 ML SDV IV ONE (01:14)
[2017-06-18] MEDS ORDERED: DEXTROSE 5%-WATER 250 ML with NOREPINEPHRINE BITARTRATE 4 MG IV PRN ×2 (01:14)
[2017-06-18] MEDS ORDERED: NORMAL SALINE 1000 ML 1,000 ML IV ONE (01:15)
[2017-06-18] MEDS: POTASSIUM CHLORIDE 20 MEQ/50 ML RTU IV SCH (01:24)
[2017-06-18 03:11] LABS: ANION GAP 15 (5-19); BLOOD UREA NITROGEN 30 mg/dL (7-20); CALCIUM 8.5 mg/dL (8.4-10.2); CARBON DIOXIDE 28 mmol/L (22-30); CHLORIDE 100 mmol/L (98-107); GLUCOSE 141 mg/dL (75-110); SODIUM 143.2 mmol/L (137-145)
[2017-06-18 03:12] LABS: ALBUMIN 3.2 g/dL (3.5-5.0); ANION GAP 14 (5-19); BLOOD UREA NITROGEN 30 mg/dL (7-20); CALCIUM 8.5 mg/dL (8.4-10.2); CARBON DIOXIDE 28 mmol/L (22-30); CHLORIDE 101 mmol/L (98-107); GLUCOSE 144 mg/dL (75-110); SODIUM 143.3 mmol/L (137-145)
[2017-06-18 03:18] LABS: POTASSIUM 3.6 mmol/L (3.6-5.0)
[2017-06-18] MEDS: HEPARIN SOD (PORCINE) 5,000 UNIT/ML 1 ML SYRINGE SUBCUT SCH ×3 (05:15→21:38)
[2017-06-18] MEDS ORDERED: PHENYLEPHRINE HCL INJ/PF 10 MG/1 ML SDV ONE (05:39)
[2017-06-18] MEDS: DEXTROSE 5%-WATER 250 ML with PHENYLEPHRINE HCL 40 MG IV PRN ×4 (05:43→13:53)
--- NOTE | 2017-06-18 08:45 | EKG REPORT ---
SEVERITY:- ABNORMAL ECG - SINUS RHYTHM ATRIAL PREMATURE COMPLEX NONSPECIFIC IVCD WITH LAD LEFT VENTRICULAR HYPERTROPHY : Confirmed by: Kael Fuentes 18-Jun-2017 08:44:58
--- NOTE | 2017-06-18 08:57 | PDOC PROGRESS REPORT ---
Subjective Progress Note for:: 06/18/17 Subjective:: The patient states to feel better. She denies any nausea vomiting or diarrhea. She denies any further syncope. She is still on Evans-Synephrine and Levophed. She does not exhibit any signs of profound hypotension Reason For Visit: HYPOTENSION VOMITING, FECAL IMPACTION,UTI,ARF Physical Exam Vital Signs: Temp Pulse Resp BP Pulse Ox 98.6 F 73 22 H 103/53 L 100 06/18/17 05:45 06/18/17 08:00 06/18/17 08:04 06/18/17 08:04 06/18/17 08:04 Intake & Output 06/17/17 06/18/17 06/19/17 06:59 06:59 06:59 Intake Total 2893 4164 Output Total 0890 2840 Balance 837 -2136 Weight 72.2 kg 69.3 kg General appearance: PRESENT: mild distress Head exam: PRESENT: atraumatic Eye exam: PRESENT: conjunctiva pink Neck exam: PRESENT: carotid bruit. ABSENT: JVD Respiratory exam: PRESENT: clear to auscultation marzena Cardiovascular exam: PRESENT: +S1, +S2 Pulses: PRESENT: +1 pedal pulses bilateral GI/Abdominal exam: PRESENT: normal bowel sounds, soft Extremities exam: PRESENT: full ROM Musculoskeletal exam: PRESENT: tenderness Neurological exam: PRESENT: alert, awake Psychiatric exam: PRESENT: flat affect Results Laboratory Results: 06/17/17 05:00 06/18/17 02:17 06/17/17 06/17/17 06/18/17 16:25 16:25 02:17 Sodium 144.9 143.3 Potassium 2.3 L* D 3.6 D Chloride 101 101 Carbon Dioxide 27 28 Anion Gap 17 14 BUN 38 H 30 H Creatinine 1.58 H 1.38 H Est GFR ( Amer) 38 L 45 L Est GFR (Non-Af Amer) 32 L 37 L Glucose 159 H 144 H Calcium 8.6 8.5 Phosphorus 3.9 Cancelled 3.0 Magnesium 1.4 L Albumin 3.4 L 3.2 L 06/18/17 02:17 Sodium 143.2 Potassium 3.6 Chloride 100 Carbon Dioxide 28 Anion Gap 15 BUN 30 H Creatinine 1.34 H Est GFR ( Amer) 46 L Est GFR (Non-Af Amer) 38 L Glucose 141 H Calcium 8.5 Phosphorus Magnesium 1.9 Albumin 06/16/17 06/16/17 15:55 20:50 Troponin I 0.034 NT-Pro-B Natriuret Pep [id number] H Impressions: Acute Abdomen Series 06/16/17 00:00 IMPRESSION: Pulmonary vascular congestion. Possible 0.6 cm right renal stone. Chest X-Ray 06/16/17 00:00 IMPRESSION: Venous access catheter tip junction left subclavian and IVC. No pneumothorax. Assessment & Plan - Diagnosis (1) Acute on chronic renal failure Qualifiers: Acute renal failure type: unspecified Chronic kidney disease stage: unspecified stage Qualified Code(s): N17.9 - Acute kidney failure, unspecified ; N18.9 - Chronic kidney disease, unspecified; N18.9 - Chronic kidney disease, unspecified Is this a current diagnosis for this admission?: Yes Plan: Much improved with IV hydration (2) Septic shock Is this a current diagnosis for this admission?: Yes Plan: Much improved with IV hydration and IV antibiotics (3) UTI (urinary tract infection) Qualifiers: Urinary tract infection type: site unspecified Hematuria presence: without hematuria Qualified Code(s): N39.0 - Urinary tract infection, site not specified Is this a current diagnosis for this admission?: Yes Plan: Continue current treatment until the cultures are back (4) CHF (congestive heart failure) Qualifiers: Heart failure type: combined systolic and diastolic Heart failure chronicity: acute on chronic Qualified Code(s): I50.43 - Acute on chronic combined systolic (congestive) and diastolic (congestive) heart failure Is this a current diagnosis for this admission?: Yes Plan: Most probably related to fluid overload (5) Diabetes mellitus Qualifiers: Diabetes mellitus type: type 2 Diabetes mellitus complication detail: with polyneuropathy Is this a current diagnosis for this admission?: Yes Plan: Continue current treatment
[2017-06-18] MEDS ORDERED: GLIMEPIRIDE 1 MG TABLET PO ONE (09:00)
[2017-06-18] MEDS ORDERED: (PENDING PHARMACY ID) (Amantadine Hcl [Amantadine] 100 MG) PO SCH (10:00)
[2017-06-18] MEDS ORDERED: (PENDING PHARMACY ID) (Fluticasone/Vilanterol [Breo Ellipta 100-25 Mcg Inh] 1 PUFF) IH SCH (10:00)
[2017-06-18] MEDS: AMANTADINE HCL 100 MG CAPSULE PO SCH (10:20)
[2017-06-18] MEDS: METOPROLOL SUCCINATE 25 MG TAB.SR.24H PO SCH (10:21)
[2017-06-18] MEDS: FLUTICASONE NASAL SPRAY 50 MCG/SPRY 120 SPRAY/16 GM NASL SCH (10:21)
[2017-06-18] MEDS: DOCUSATE SODIUM 100 MG CAPSULE PO SCH ×2 (10:21→17:58)
[2017-06-18] MEDS: GABAPENTIN 100 MG CAPSULE PO SCH ×2 (13:54→21:39)
[2017-06-18] MEDS ORDERED: PHARMACY COMMUNICATION ORDER MC SCH (18:00)
[2017-06-18] MEDS ORDERED: VANCOMYCIN HCL 750 MG in DEXTROSE 5%-WATER 250 ML IV SCH (18:00)
[2017-06-18] MEDS: CEFTRIAXONE SODIUM 1,000 MG in DEXTROSE 5%-WATER 50 ML IV SCH (21:47)
[2017-06-19] MEDS: GABAPENTIN 100 MG CAPSULE PO SCH ×3 (05:46→21:07)
[2017-06-19 06:03] LABS: ABSOLUTE EOSINOPHILS # (AUTO) 0.2 10^3/uL (0.0-0.6); ABSOLUTE LYMPHOCYTES (AUTO) 1.2 10^3/uL (0.5-4.7); ABSOLUTE MONOCYTES (AUTO) 0.5 10^3/uL (0.1-1.4); ABSOLUTE NEUT (AUTO) 2.8 10^3/uL (1.7-8.2); BASOPHILS % (AUTO) 0.5 % (0-2); EOSINOPHILS % (AUTO) 3.9 % (0-6); HEMATOCRIT 34.6 % (36.0-47.0); HEMOGLOBIN 11.6 g/dL (12.0-15.5); LYMPHOCYTES % (AUTO) 24.7 % (13-45); MEAN CORPUSCULAR HEMOGLOBIN 32.4 pg (27.0-33.4); MEAN CORPUSCULAR HGB CONC 33.4 g/dL (32.0-36.0); MEAN CORPUSCULAR VOLUME 97 fl (80-97); MONOCYTES % (AUTO) 10.9 % (3-13); PLATELET COUNT 110 10^3/uL (150-450); RED BLOOD COUNT 3.57 10^6/uL (3.72-5.28); RED CELL DISTRIBUTION WIDTH 13.8 % (11.5-14.0); TOTAL CELLS COUNTED % (AUTO) 100 %; WHITE BLOOD COUNT 4.7 10^3/uL (4.0-10.5)
[2017-06-19 06:24] LABS: ALANINE AMINOTRANSFERASE 26 U/L (9-52); ALBUMIN 3.1 g/dL (3.5-5.0); ALKALINE PHOSPHATASE 66 U/L (38-126); ANION GAP 11 (5-19); ASPARTATE AMINO TRANSFERASE 18 U/L (14-36); BILIRUBIN,DIRECT 0.3 mg/dL (0.0-0.4); BILIRUBIN,TOTAL 0.3 mg/dL (0.2-1.3); BLOOD UREA NITROGEN 21 mg/dL (7-20); CALCIUM 8.9 mg/dL (8.4-10.2); CARBON DIOXIDE 30 mmol/L (22-30); CHLORIDE 103 mmol/L (98-107); GLUCOSE 111 mg/dL (75-110); POTASSIUM 3.4 mmol/L (3.6-5.0); SODIUM 143.7 mmol/L (137-145); TOTAL PROTEIN 6.1 g/dL (6.3-8.2)
[2017-06-19] MEDS: HEPARIN SOD (PORCINE) 5,000 UNIT/ML 1 ML SYRINGE SUBCUT SCH ×3 (06:38→21:08)
[2017-06-19] MEDS ORDERED: DIGOXIN 0.25 MG TABLET PO ONE (09:00)
--- NOTE | 2017-06-19 09:00 | EKG REPORT ---
SEVERITY:- ABNORMAL ECG - ATRIAL FIBRILLATION NONSPECIFIC IVCD WITH LAD CONSIDER ANTEROSEPTAL INFARCT : Confirmed by: Kael Fuentes 19-Jun-2017 08:59:10
[2017-06-19] MEDS ORDERED: POTASSIUM CHLORIDE 10 MEQ TABLET.SA PO SCH (10:00)
[2017-06-19] MEDS: DOCUSATE SODIUM 100 MG CAPSULE PO SCH ×2 (11:50→18:25)
[2017-06-19] MEDS: METOPROLOL SUCCINATE 25 MG TAB.SR.24H PO SCH (11:53)
--- NOTE | 2017-06-19 11:54 | PDOC PROGRESS REPORT ---
Subjective Progress Note for:: 06/19/17 Subjective:: The patient states to feel much better. She is sitting up in bed resting comfortably and having breakfast. She denies any chest pain or palpitations. Her blood pressure is 112/70 she is off the pressors Reason For Visit: HYPOTENSION VOMITING, FECAL IMPACTION,UTI,ARF Physical Exam Vital Signs: Temp Pulse Resp BP Pulse Ox 98.4 F 108 H 19 106/62 96 06/19/17 07:39 06/19/17 07:39 06/19/17 11:00 06/19/17 10:50 06/19/17 11:00 Intake & Output 06/18/17 06/19/17 06/20/17 06:59 06:59 06:59 Intake Total 4164 1054 Output Total 6300 1080 45 Balance -2136 -26 -45 Weight 69.3 kg 71.3 kg General appearance: PRESENT: mild distress Head exam: PRESENT: atraumatic Eye exam: PRESENT: conjunctiva pink Neck exam: PRESENT: carotid bruit. ABSENT: JVD Respiratory exam: PRESENT: crackles Cardiovascular exam: PRESENT: irregular rhythm, +S1, +S2 GI/Abdominal exam: PRESENT: normal bowel sounds, soft Extremities exam: PRESENT: tenderness Musculoskeletal exam: PRESENT: tenderness Neurological exam: PRESENT: alert, awake Results Laboratory Results: 06/19/17 05:50 06/19/17 05:50 06/19/17 06/19/17 05:50 05:50 WBC 4.7 RBC 3.57 L Hgb 11.6 L Hct 34.6 L MCV 97 MCH 32.4 MCHC 33.4 RDW 13.8 Plt Count 110 L Seg Neutrophils % 60.0 Lymphocytes % 24.7 Monocytes % 10.9 Eosinophils % 3.9 Basophils % 0.5 Absolute Neutrophils 2.8 Absolute Lymphocytes 1.2 Absolute Monocytes 0.5 Absolute Eosinophils 0.2 Absolute Basophils 0.0 Sodium 143.7 Potassium 3.4 L Chloride 103 Carbon Dioxide 30 Anion Gap 11 BUN 21 H Creatinine 0.93 Est GFR ( Amer) > 60 Est GFR (Non-Af Amer) 58 L Glucose 111 H Calcium 8.9 Magnesium 1.7 Total Bilirubin 0.3 AST 18 ALT 26 Alkaline Phosphatase 66 Total Protein 6.1 L Albumin 3.1 L 06/16/17 06/16/17 06/19/17 15:55 20:50 05:50 Troponin I 0.034 NT-Pro-B Natriuret Pep 75990 H 79396 H Impressions: Acute Abdomen Series 06/16/17 00:00 IMPRESSION: Pulmonary vascular congestion. Possible 0.6 cm right renal stone. Chest X-Ray 06/16/17 00:00 IMPRESSION: Venous access catheter tip junction left subclavian and IVC. No pneumothorax. Assessment & Plan - Diagnosis (1) Acute on chronic renal failure Qualifiers: Acute renal failure type: unspecified Chronic kidney disease stage: unspecified stage Qualified Code(s): N17.9 - Acute kidney failure, unspecified ; N18.9 - Chronic kidney disease, unspecified; N18.9 - Chronic kidney disease, unspecified Is this a current diagnosis for this admission?: Yes Plan: Continue function improved with hydration. (2) Septic shock Is this a current diagnosis for this admission?: Yes Plan: Resolved with blood pressure support and IV fluids and antibiotics (3) UTI (urinary tract infection) Qualifiers: Urinary tract infection type: site unspecified Hematuria presence: without hematuria Qualified Code(s): N39.0 - Urinary tract infection, site not specified Is this a current diagnosis for this admission?: Yes Plan: Culture showing staph aureus (4) CHF (congestive heart failure) Qualifiers: Heart failure type: combined systolic and diastolic Heart failure chronicity: acute on chronic Qualified Code(s): I50.43 - Acute on chronic combined systolic (congestive) and diastolic (congestive) heart failure Is this a current diagnosis for this admission?: Yes Plan: Most probably related to fluid overload (5) Diabetes mellitus Qualifiers: Diabetes mellitus type: type 2 Diabetes mellitus complication detail: with polyneuropathy Is this a current diagnosis for this admission?: Yes Plan: Continue current treatment (6) Atrial fibrillation Is this a current diagnosis for this admission?: Yes Plan: We will continue with metoprolol and add digoxin
[2017-06-19] MEDS: LEVOFLOXACIN 500 MG TABLET PO SCH (11:58)
[2017-06-19] MEDS: DIGOXIN 0.125 MG TABLET PO SCH (11:58)
[2017-06-19] MEDS: GLIMEPIRIDE 1 MG TABLET PO SCH (12:00)
[2017-06-19] MEDS: AMANTADINE HCL 100 MG CAPSULE PO SCH (12:02)
[2017-06-19] MEDS: FLUTICASONE NASAL SPRAY 50 MCG/SPRY 120 SPRAY/16 GM NASL SCH (12:04)
--- NOTE | 2017-06-19 14:53 | CONSULTATION REPORT E ---
Consultation Report NAME: DEANDRE WAYNE : 1940 AGE: 77Y DATE: 06/18/2017 612 A TO: THADDEUS DANIELS M.D. FROM: ALEXANDR ABRAHAM M.D. Requesting Physician REASON FOR CONSULTATION: Hypotension. HISTORY: The patient is a 77-year-old female with a past history of congestive heart failure, history of hypertension, and history of diabetes mellitus with nephropathy, neuropathy, history of chronic kidney disease, stage 3 as per prior labs and at present in stage 4. The patient states that since the past few days, she has been having nausea with vomiting and vomited dark, foul-smelling material. She also has some shortness of breath which she says is not much. There is no wheezing. There is no chest pain or discomfort. She did have some leg edema on admission which is now much improved and there is only trace edema. She denies any PND or orthopnea. There is no wheezing. There are no anginal symptoms. There are no TIA or CVA symptoms. There are no palpitations. Although the patient's blood pressure was low on admission, she denies any dizziness, weakness, syncope or near syncope. On admission, she was also found to have a potassium of 5.5 which increased to 7.1 and her GFR, which usually runs in the 30s, was 22 and 19 which is stage 4 renal disease, suggesting acute renal failure. Her NT-proBNP was also 29,100. Note: The patient was found to have pyuria with urinary tract infection and also found to have fecal impaction. With the blood pressure being low, the patient was on 2 pressors and initially, the patient was on Levophed and Evans-Synephrine. The patient's Levophed has been discontinued and the patient's blood pressure is much improved, although in the 90s, with the patient's Evans-Synephrine being down to 80 mcg/min. At present, she denies any symptoms. PAST MEDICAL HISTORY: Positive for history of hypertension. She denies any history of coronary artery disease, angina or HI. There is a past history of congestive heart failure. She does not know her ejection fraction but states that she was told that there was no compromise in the function of her heart. She has no history of TIA or CVA. She has a history of asthma which is mild and very occasional attacks but patient is not on any rescue inhalers regularly. 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 She also has a history of chronic kidney disease by labs. She is on stage 3 or moderate chronic kidney disease which had progressed to acute renal failure with the renal function going to stage 4. The patient also, on admission, was found to be hyperkalemic. PAST SURGICAL HISTORY: Negative. REVIEW OF SYSTEMS: CONSTITUTIONAL: Denies any fever, chills or rigors. HEAD: Denies any headaches or head injury. EYES: No history of amblyopia or diplopia. No history of amaurosis fugax. EARS: No history of tinnitus. No history of hearing loss. No history of recurrent ear infections. NOSE: No history of odynophagia, dysphagia. No history of recurrent sore throats. No history of nasal polyps. No history of nosebleeds. No symptoms suggestive of deviated nasal septum. MOUTH: No history of altered taste sensation. No history of ulcers in the mouth. No bleeding from the gums. Tongue: She states that the tongue is dry. THROAT: No history of odynophagia or dysphagia. No history of recurrent sore throats. NECK: Denies any neck stiffness or neck pain. No swelling in the neck. LUNGS: History of asthma. No recent symptoms of wheezing although she had mild shortness of breath on admission which has now resolved. The patient is not on a regular rescue inhaler. There is no history of COPD. There is no history of sleep apnea. There is no history of pulmonary embolism. There is no history of chest pain, pleuritic or otherwise. There is no history of hemoptysis. The patient denies any cough or sputum production. CARDIAC: No history of HI. No history of anginal symptoms. No history of coronary artery disease. Note that the patient states that in fact, she has congestive heart failure but ejection fraction is really not known. She denies any palpitations or syncope. In spite of the patient's blood pressure being low and requiring pressors, she has no symptoms such as generalized weakness, dizziness, syncope or near syncope. NOTE: The patient was known to have some PVCs and was started this admission on a small dose of beta sussy which I have asked them to hold since the patient's blood pressure is on the low side. Also, her ejection fraction needs to be assessed. GASTROINTESTINAL: History of nausea and vomiting of dark foul-smelling material. No history of hepatitis. No history of symptoms suggestive of gallbladder disease. No history of abdominal pain. No history of GERD or GI bleed. MUSCULOSKELETAL: Denies any arthritis or collagen-vascular disease. RENAL: History of chronic kidney disease, stage 3, at present stage 4. Although the patient had pyuria and urinary tract infection, she denies any symptoms of hematuria, pyuria or dysuria. ENDOCRINE: History of diabetes mellitus type 2, non-insulin dependent. History of diabetic neuropathy and nephropathy. No history of thyroid disease. CENTRAL NERVOUS SYSTEM: No history of TIA or CVA. No history of seizures, headaches or migraines. PSYCHIATRIC: No history of anxiety or depression. HEMATOLOGICAL: No history of bleeding diathesis or clotting disorders. No history of anemia. VASCULAR: No history of calf or buttocks claudication. No history of DVT. Rest of review of systems negative for any fever, chills or rigors. ALLERGIES: No known allergies. SOCIAL HISTORY: The patient does not smoke. There is no history of street drug abuse. DISPOSITION: THE PATIENT IS A FULL CODE. She lives with her son. Her son is her surrogate healthcare decision maker. MEDICATIONS: 1. 100 mg p.o. daily. 2. Dextrose 15 mg p.o. p.r.n. that is glucose 40% gel, 15 g p.o. p.r.n. and glucose 40% gel 30 g p.o. p.r.n. hypoglycemia. 3. Dextrose 50% 12.5 g IV and 25 grams IV p.r.n. hypoglycemia. 4. Colace 100 mg p.o. b.i.d. 5. Flonase one spray nasally daily. 6. Breo 1 puff inhalation daily. 7. Neurontin 100 mg p.o. q. 8 hours. 8. Amaryl 1 mg, that is glimepiride, 1 mg p.o. x1 and 1 mg p.o. q. a.m. 9. Glucagon 1 mg IM p.r.n. hypoglycemia. 10. Heparin 5000 units subcutaneously q. 8 hours. 11. Accu-Chek t.i.d. is encouraged. 12. Ceftriaxone 1 g in 15 mL IV at bedtime. 13. Magnesium hydroxide, that is Milk of Magnesia, 30 mL p.r.n. 14. Toprol XL 25 mg p.o. daily. 15. Evans-Synephrine at 18 mcg/min. 16. Normal saline. She got a bolus. 17. D5 half normal saline at 250 mL. 18. Vancomycin 750 mg IV q. p.m. PHYSICAL EXAMINATION: GENERAL: At present, patient in no acute distress. She is well built and well nourished. VITAL SIGNS: She is afebrile with a temperature of 98.4 degrees Fahrenheit. Pulse is 87 beats per minute. Blood pressure is 92/54. Respirations are 20 per minute. O2 sat is 100% on 2 L nasal cannula. HEENT: Head is atraumatic, normocephalic. Eyes: Pupils are equal, round, regular, reactive to light and accommodation. Extraocular movements are normal. There is no conjunctival pallor. There is no scleral icterus. Ears: Tympanic membranes are intact. External auditory canals are clear. Nose: There is no deviated nasal septum. There is no inflammation of the nasal mucous membranes. Mouth: Mucous membranes of the mouth are dry. Tongue is dry. There are no ulcers. There is no bleeding from the gums. Throat: There is no redness of the oropharynx. There are no exudates. SKIN: There are no skin rashes. There is no petechia or ecchymosis. There are no skin lesions. NECK: Supple. There is no JVD. Carotids are equal. There is no bruit. There is no lymphadenopathy. There is no goiter. Trachea central. LUNGS: Shows absent breath sounds, left base with dullness secondary to pleural effusion. A few fine crackles in the right base which is minimal. HEART: S1 and S2 is heard. There is no S3 gallop. There is no S4 gallop. There is here are systolic murmur, left sternal border on the apex. There is no rub. ABDOMEN: Soft, nontender. There is no hepatosplenomegaly. Bowel sounds are well heard. There are no tender areas or masses. EXTREMITIES: Femorals are well felt. There are no femoral bruits. Leg pulses are well felt. There is trace pedal edema. There is no DVT or cellulitis. There is no calf tenderness. CENTRAL NERVOUS SYSTEM: The patient is conscious, awake, alert, oriented x3 with no focal deficits. PSYCHIATRIC: The patient's judgment and insight are intact. Her affect is normal. IMAGING STUDIES: The patient's chest x-ray shows a left pleural effusion with some mild CHF. DIAGNOSTIC STUDIES: The patient's EKG shows a sinus rhythm with an atrial premature complex, nonspecific IVCD with left axis deviation, left ventricular hypertrophy. LABORATORY STUDIES: The patient's potassium is now normal at 3.6; her sodium is 143.2, chloride is 100, the CO2 is 78, the patient's BUN is 30, creatinine is 1.34, GFR has come up to 38 mL which is chronic kidney disease stage 3, compared to earlier when the GFR was 19. The patient's potassium also was high which has come down. The patient's magnesium is 1.9. Her albumin is 3.2. Her white count was 9700 yesterday; a hemoglobin is 13.2; hematocrit is 39.3; and her platelet count is 182,000. The patient's urine shows that the urine appearance is turbid. The urine protein is 100; the urine glucose is negative; the patient's urine ketones are negative; urine blood is small, urine nitrate is negative; the patient's urine leukocyte esterase is large. The patient's blood cultures were negative x2 after 48 hours. Her urine characterization showed Staphylococcus aureus which is sensitive to ampicillin-sulbactam, amoxicillin clavulanate, cefazolin, ceftriaxone, , Imipenem, levofloxacin, Nitrofurantoin, oxacillin, rifampin, tetracycline, Bactrim, and vancomycin. The patient is on appropriate antibiotics for this. INTAKE AND OUTPUT: The patient's 24 hour intake has been 4165 mL. Output is 6300 mL. IMPRESSION: 1. Hypotension. Patient asymptomatic but requiring inotropic support. The hypotension may be secondary to the patient's urinary tract infection/sepsis and also myocardial depression secondary to the patient's acute renal failure and sepsis. 2. Acute on chronic kidney disease. The patient was stage 3, baseline at present. Patient was, on admission, stage 4. Now patient, with rehydration, has gone back to stage 3. 3. Hyperkalemia, resolved. Potassium now normal. 4. Shortness of breath secondary to congestive heart failure, most likely diastolic and secondary to volume overload and also secondary to left pleural effusion. Will recheck the patient's chest x-ray in 48 hours to see if that is improving. 5. Urinary tract infection with urosepsis. Patient on appropriate antibiotics. 6. Diabetes mellitus with neuropathy and nephropathy. Continue the patient's neuropathic medication. Continue the patient's antidiabetic medication. 7. Hypertension. Would recommend holding the patient's beta sussy for now until the patient's blood pressure comes up. Would also hold the patient's . 8. Hyperlipidemia. We will recheck the patient's lipid levels later. PLAN: As mentioned earlier, will try to wean the patient off inotropes. Continue the patient on antibiotics. Continue antidiabetic medication. Would recommend checking an echo for LV ejection fraction and to see if the patient has combined systolic and diastolic heart failure or early diastolic heart failure. Even though LV ejection fraction may be normal, she could still have systolic dysfunction due to the patient's acute renal failure and acidosis secondary to sepsis and renal failure causing myocardial depression. TIME SPENT: Note: 50 minutes spent on this patient with more than 50% of the time spent on direct patient care. Note that the patient states that she follows up with the atmospheric physicist in [place] and sees him regularly. We will try to get records from his office. Discussed with the attending physician. Note: The medications have been reviewed. Note that in this case, medical decision making is highly complex since the patient's blood pressure is still borderline, requiring still inotropic agents. We will follow with you. DICTATING PHYSICIAN: THADDEUS DANIELS M.D. [id number] MARISOL#: [id number] ID: [id number] JOB#: [id number] ACCT: [id number] cc:THADDEUS DANIELS M.D. >
--- NOTE | 2017-06-19 17:16 | XCELERA REPORT ---
[address] [address] Transthoracic Echocardiogram Report Name: DEANDRE WAYNE Age: 77 yrs Gender: Female : 1940 Patient Status: Inpatient Patient Location: ICU^2A Study Date: 06/19/2017 10:44 AM Height: 62 in Weight: 152 lb BSA: 1.7 m2 Procedure: A two-dimensional transthoracic echocardiogram with color flow and Doppler was performed. Study Quality: Technically suboptimal. Reason For Study: HYPOTENSION History: HYPOTENSION. Ordering Physician: EMA DANIELS Performed By: Tameka Alas Interpretation Summary The left ventricle is mildly dilated. There is normal left ventricular wall thickness. Left ventricular systolic function is severely reduced. LV EF is 20% There is severe global hypokinesis of the left ventricle. Septal motion is consistent with conduction abnormality There is no thrombus. The right ventricle is mildly dilated. The right ventricle is not well visualized secondary to technical limitations The right atrium is normal in size The left and right artia are moderately dilated There is no evidence of mitral valve prolapse. There is no vegetation seen on the mitral valve. There is no mitral valve stenosis. There is a moderate to severe amount of mitral regurgitation There is no aortic valvular vegetation. Visually no .No AR. There is no tricuspid stenosis. There is a moderate amount of tricuspid regurgitation There is servere pulmonary hypertension by echo RVSP is 65 to 70 mm of Hg , with RA mean of 115 to 20. There is a trace amount of pulmonic regurgitation There is no pulmonic valvular stenosis. The aortic root is normal size. Minimal pericardial effusion. There are no echocardiographic or Doppler indications for cardiac tamponade MMode/2D Measurements & Calculations RVDd: 3.6 cm LVIDd: 4.7 cm FS: 7.2 % EPSS: 2.0 cm IVSd: 1.0 cm LVIDs: 4.4 cm EDV(Teich): 102.4 ml LVPWd: 0.88 cm ESV(Teich): 86.0 ml EF(Teich): 16.0 % Ao root diam: 2.5 cm LVOT diam: 2.0 cm Ao root area: 4.9 cm2 LVOT area: 3.1 cm2 Doppler Measurements & Calculations MV E max dee: MV dec slope: LV dP/dt: MR max dee: 139.2 cm/sec 1223 cm/sec2 584.8 mmHg/s 470.3 cm/sec MV A max dee: MV dec time: MR max P.1 cm/sec 0.11 sec 88.5 mmHg MV E/A: 1.6 PA V2 max: PI end-d dee: TR max dee: 100.5 cm/sec 121.2 cm/sec 340.5 cm/sec PA max P.0 mmHg TR max P.5 mmHg Left Ventricle The left ventricle is mildly dilated. There is normal left ventricular wall thickness. Left ventricular systolic function is severely reduced. LV EF is 20%. There is severe global hypokinesis of the left ventricle. Septal motion is consistent with conduction abnormality. There is no thrombus. Right Ventricle The right ventricle is mildly dilated. The right ventricle is not well visualized secondary to technical limitations. Atria The right atrium is normal in size. The left and right artia are moderately dilated. Mitral Valve There is no evidence of mitral valve prolapse. There is no vegetation seen on the mitral valve. There is no mitral valve stenosis. There is a moderate to severe amount of mitral regurgitation. Aortic Valve There is no aortic valvular vegetation. Visually no .No AR. Tricuspid Valve There is no tricuspid stenosis. There is a moderate amount of tricuspid regurgitation. There is servere pulmonary hypertension by echo. RVSP is 65 to 70 mm of Hg , with RA mean of 115 to 20. Pulmonic Valve There is no pulmonic valvular stenosis. There is a trace amount of pulmonic regurgitation. Great Vessels The aortic root is normal size. Effusions Minimal pericardial effusion. There are no echocardiographic or Doppler indications for cardiac tamponade. : EMA DANIELS > Ema Daniels
[2017-06-19] MEDS: CEFTRIAXONE SODIUM 1,000 MG in DEXTROSE 5%-WATER 50 ML IV SCH (21:07)
--- NOTE | 2017-06-19 21:18 | EKG REPORT ---
SEVERITY:- ABNORMAL ECG - SINUS TACHYCARDIA LAD, CONSIDER LEFT ANTERIOR FASCICULAR BLOCK LATERAL INFARCT, AGE INDETERMINATE CONSIDER ANTEROSEPTAL INFARCT VPC : Confirmed by: Kael Fuentes 19-Jun-2017 21:18:17
[2017-06-20] MEDS: GABAPENTIN 100 MG CAPSULE PO SCH ×3 (05:42→22:29)
[2017-06-20 06:23] LABS: ANION GAP 10 (5-19); BLOOD UREA NITROGEN 17 mg/dL (7-20); CALCIUM 9.7 mg/dL (8.4-10.2); CARBON DIOXIDE 33 mmol/L (22-30); CHLORIDE 102 mmol/L (98-107); GLUCOSE 106 mg/dL (75-110); SODIUM 145.3 mmol/L (137-145)
[2017-06-20] MEDS: HEPARIN SOD (PORCINE) 5,000 UNIT/ML 1 ML SYRINGE SUBCUT SCH ×3 (07:53→22:29)
--- NOTE | 2017-06-20 08:39 | RADIOLOGY REPORT (SQ) ---
EXAM DESCRIPTION: CHEST SINGLE VIEW COMPLETED DATE/TIME: 06/19/2017 9:18 pm REASON FOR STUDY: LEFT PLEURAL EFFUSION COMPARISON: AP chest 06/16/2017, 06/05/2017 EXAM PARAMETERS: NUMBER OF VIEWS: One view. TECHNIQUE: Single frontal radiographic view of the chest acquired. RADIATION DOSE: NA LIMITATIONS: None. FINDINGS: LUNGS AND PLEURA: Mild pulmonary vascular congestion. Atelectasis at the left lateral costophrenic sulcus. No acute infiltrates. No gross pleural effusion. No pneumothorax. MEDIASTINUM AND HILAR STRUCTURES: No masses. Contour normal. HEART AND VASCULAR STRUCTURES: Heart normal in size. Normal vasculature. BONES: No acute findings. HARDWARE: Left jugular line tip superior vena cava OTHER: No other significant finding. IMPRESSION: Atelectasis along the left lateral costophrenic sulcus. Trace pleural fluid could not b e excluded. Upright two-view chest could be useful for followup. TECHNICAL DOCUMENTATION: JOB ID: [id number] [employer]- All Rights Reserved Reading location - IP/workstation name: [email or web address]
--- NOTE | 2017-06-20 08:40 | PDOC PROGRESS REPORT ---
Subjective Progress Note for:: 06/20/17 Subjective:: The patient states to feel better. She denies any chest pain or shortness of breath. Her heart rate is relatively well controlled. Cardiology consultation appreciated for help with change in her medications. Reason For Visit: HYPOTENSION VOMITING, FECAL IMPACTION,UTI,ARF Physical Exam Vital Signs: Temp Pulse Resp BP Pulse Ox 99.7 F 86 22 H 101/80 100 06/19/17 16:56 06/20/17 07:42 06/20/17 08:00 06/20/17 06:50 06/20/17 08:00 Intake & Output 06/19/17 06/20/17 06/21/17 06:59 06:59 06:59 Intake Total 1054 400 Output Total 1080 705 Balance -26 -305 Weight 71.3 kg 71.1 kg General appearance: PRESENT: mild distress Head exam: PRESENT: atraumatic Eye exam: PRESENT: conjunctiva pink Neck exam: PRESENT: carotid bruit. ABSENT: JVD Respiratory exam: PRESENT: crackles Cardiovascular exam: PRESENT: irregular rhythm, +S1, +S2 GI/Abdominal exam: PRESENT: normal bowel sounds, soft Extremities exam: PRESENT: tenderness Musculoskeletal exam: PRESENT: tenderness Neurological exam: PRESENT: alert, awake Results Laboratory Results: 06/19/17 05:50 06/20/17 05:35 06/20/17 05:35 Sodium 145.3 H Potassium 4.0 Chloride 102 Carbon Dioxide 33 H Anion Gap 10 BUN 17 Creatinine 0.82 Est GFR ( Amer) > 60 Est GFR (Non-Af Amer) > 60 Glucose 106 Calcium 9.7 Magnesium 2.0 06/16/17 06/16/17 06/19/17 15:55 20:50 05:50 Troponin I 0.034 NT-Pro-B Natriuret Pep 54454 H [id number] H Impressions: Acute Abdomen Series 06/16/17 00:00 IMPRESSION: Pulmonary vascular congestion. Possible 0.6 cm right renal stone. Assessment & Plan - Diagnosis (1) Acute on chronic renal failure Qualifiers: Acute renal failure type: unspecified Chronic kidney disease stage: unspecified stage Qualified Code(s): N17.9 - Acute kidney failure, unspecified ; N18.9 - Chronic kidney disease, unspecified; N18.9 - Chronic kidney disease, unspecified Is this a current diagnosis for this admission?: Yes (2) Septic shock Is this a current diagnosis for this admission?: Yes (3) UTI (urinary tract infection) Qualifiers: Urinary tract infection type: site unspecified Hematuria presence: without hematuria Qualified Code(s): N39.0 - Urinary tract infection, site not specified Is this a current diagnosis for this admission?: Yes Plan: Culture showing staph aureus (4) CHF (congestive heart failure) Qualifiers: Heart failure type: combined systolic and diastolic Heart failure chronicity: acute on chronic Qualified Code(s): I50.43 - Acute on chronic combined systolic (congestive) and diastolic (congestive) heart failure Is this a current diagnosis for this admission?: Yes Plan: Much improved we will continue with current medication treatments (5) Diabetes mellitus Qualifiers: Diabetes mellitus type: type 2 Diabetes mellitus complication detail: with polyneuropathy Is this a current diagnosis for this admission?: Yes Plan: Continue current treatment (6) Atrial fibrillation Is this a current diagnosis for this admission?: Yes Plan: We will continue with rate control (7) Cardiomyopathy Is this a current diagnosis for this admission?: Yes Plan: We will review the echocardiogram with cardiology
[2017-06-20] MEDS: METOPROLOL SUCCINATE 25 MG TAB.SR.24H PO SCH (10:13)
[2017-06-20] MEDS: ASPIRIN 81 MG TABLET, CHEWABLE PO SCH (10:14)
[2017-06-20] MEDS: DIGOXIN 0.125 MG TABLET PO SCH (10:14)
[2017-06-20] MEDS: DOCUSATE SODIUM 100 MG CAPSULE PO SCH ×2 (10:14→17:15)
[2017-06-20] MEDS: LEVOFLOXACIN 500 MG TABLET PO SCH (10:14)
[2017-06-20] MEDS: SPIRONOLACTONE 25 MG TABLET PO SCH (10:15)
[2017-06-20] MEDS: GLIMEPIRIDE 1 MG TABLET PO SCH (10:17)
[2017-06-20] MEDS: AMANTADINE HCL 100 MG CAPSULE PO SCH ×2 (10:18→17:15)
[2017-06-20] MEDS: LOSARTAN POTASSIUM 25 MG TABLET PO SCH (10:18)
[2017-06-20] MEDS: FLUTICASONE NASAL SPRAY 50 MCG/SPRY 120 SPRAY/16 GM NASL SCH (10:18)
--- NOTE | 2017-06-20 15:44 | PROGRESS NOTE E ---
Progress Note NAME: DEANDRE WAYNE : 1940 AGE: 77Y DATE: 06/19/2017 ROOM: 612 SUBJECTIVE: Of note, the patient was seen in the morning prior to coronary artery echo. A total of 45 minutes was spent on the patient with 30 minutes in the morning and 15 minutes in the evening. The patient states the shortness of breath is improved but the nurses noticed that with the patient just getting out of bed and walking a few steps she becomes very short of breath. There are occasional APCs and occasional PVCs seen. There is no major ventricular ectopic activity seen. The patient denies any chest pain. There is no PND or orthopnea. Her leg edema is much improved. Her renal function also is much improved. She denies any TIA or CVA symptoms. There is no syncope or near syncope. However, the patient does have a history of tremors and that is why she is on amantadine for that. Initially it was thought that the patient was in atrial fibrillation due to the artifacts appearing on the EKG and the monitor, but a 12-lead EKG with "Jose Alfredo lead" EKG showed that the patient was in sinus rhythm with IVCD of the ventricle. The patient denies any PND or orthopnea. There is no anginal symptoms. PHYSICAL EXAMINATION: GENERAL: The patient is well built, in no acute distress. She is resting in bed. She is well groomed. VITAL SIGNS: Her temperature is 99.3 degrees Fahrenheit. Pulse is 97 beats per minute. Blood pressure is 101/63 and does come up to 110s; earlier it was 115/79. Respirations are 22 per minute. O2 sats are 98% on 2 L nasal cannula. HEENT: Head - Atraumatic, normocephalic. Eyes - Pupils are equal, round, regular, reactive to light and accommodation. There is no conjunctival pallor. There is no scleral icterus. Ears - Tympanic membranes are intact. External auditory canals are clear. Nose - There is no deviated nasal septum. There is no inflammation of the nasal mucous membranes. Mouth - Mucous membranes of the mouth are moist. The tongue is moist. There are no ulcers. There is no bleeding from the gums. Throat - There is no redness of the oropharynx. There are no exudates. SKIN: There is no skin rashes. There is no petechia or ecchymosis. There is no skin lesions. NECK: Supple. There is no JVD. Carotids are equal. There is no bruit. There is no lymphadenopathy. There is no goiter. Trachea is central. LUNGS: Show absent breath sounds in the left base with some dullness which is much less than yesterday. There are no rales of CHF. HEART: S1, S2 is heard. There is no S3 gallop. There is no S4 gallop. There is a systolic murmur at the left sternal border and the apex. There is murmur of mitral regurgitation and tricuspid regurgitation present. There is no rub. ABDOMEN: Soft and nontender. There is no hepatosplenomegaly. Bowel sounds are well heard. There are no tender areas or masses. EXTREMITIES: Femorals are well felt. There are no femoral bruits. Leg pulses are well felt. There is no pedal edema. There is no DVT or cellulitis. There is no calf tenderness. CENTRAL NERVOUS SYSTEM: The patient is conscious, awake, alert, oriented x3 with no focal deficits. PSYCHIATRIC: The patient's judgement and insight are intact and her affect is normal. DIAGNOSTICS: The patient's 24-hour intake has been 1051 mL and output is 1080 mL. The patient's sodium is 133.7. Potassium is low at 3.4; this has been replenished with oral KCl. CO2 is 30. Patient's chloride is 103. The patient's BUN has come down to 21, creatinine is down to 0.93, GFR has come up to 58 from yesterday's 38 mL. Glucose is 111. The patient's liver function tests are normal. Anti-proBNP has come down to 18,400. The patient's total protein is 6.1 and albumin is 3.1. The patient's white count is 4700, hemoglobin 10.3, hematocrit is 34.6, and the platelet count is 110,000. The patient's EKG shows sinus rhythm with APCs and nonspecific IVCD with left axis deviation. The patient's subsequent EKG shows sinus tachycardia, left anterior fascicular block, nonspecific IVCD, PVCs and APCs, definitely sinus mechanism, poor R-wave progression, may be due to IVCD. The patient's echocardiogram shows the left ventricle is mildly dilated, there is normal left ventricular wall thickness, left ventricular systolic function is severely reduced at 20% with severe global hypokinesis of the left ventricle, septal motion is consistent with conduction abnormality, and there is no thrombus. The right ventricle is mildly dilated. The right ventricle is not well visualized secondary to technical limitations. The right atrium is normal in size. The left atrium is moderately dilated. There is no evidence of mitral valve prolapse. There is no vegetation seen on the mitral valve. There is no mitral valve stenosis. There is [id number] mitral regurgitation. There is no aortic stenosis or aortic regurgitation. There is no tricuspid stenosis. There is a moderate amount of tricuspid regurgitation. There is severe pulmonary hypertension by echo. Right ventricular systolic function is 65 to 70 mmHg with an RV mean of 15 to 20. There is no pulmonic stenosis. There is a trace amount of pulmonic regurgitation. There is minimal pericardial effusion. There is no echo evidence or Doppler indications of cardiac tamponade. IMPRESSION AND PLAN: 1. CARDIOMYOPATHY WITH SEVERELY REDUCED LV EJECTION FRACTION. This is a new finding. The patient will need workup of this. Will start the patient on an ARB and watch the patient's renal function. Patient is already on Toprol; will increase that as tolerated. Later we will start the patient on spironolactone. Continue the patient's digoxin which might help the patient's LV dysfunction. 2. ACUTE RENAL FAILURE, MUCH IMPROVED RENAL FUNCTION. GFR has come up to 58. This is most likely secondary to cardiorenal syndrome and dehydration and sepsis. 3. HYPERKALEMIA, RESOLVED. Potassium is now low. 4. HYPOKALEMIA. This has been replaced. We will recheck labs in the morning. 5. URINARY TRACT INFECTION. Patient is improving with antibiotics. Urosepsis is improving. 6. LEFT PLEURAL EFFUSION, MOST LIKELY SECONDARY TO HER CARDIOMYOPATHY AND PULMONARY HYPERTENSION. We will recheck the patient's chest x-ray in the a.m. 7. DIABETES MELLITUS WITH NEUROPATHY AND NEPHROPATHY. Continue the patient's neuropathic medication. Continue the patient's antidiabetic medication. 8. HYPERTENSION. Blood pressure well controlled. In fact, it is on the lower side. We will watch to see if the patient can tolerate anti-cardiomyopathy medication. 9. HYPERLIPIDEMIA. We will recheck the patient's lipid level later this admission. 10. TREMORS. The patient claims that she has a history of tremors, although the patient denies any history of Parkinson disease. The patient has been placed on amantadine for this. Note that amantadine can cause heart failure and other cardiac complications, including drop in blood pressure; hence, we will discontinue this. 11. SEVERE PULMONARY HYPERTENSION, MOST LIKELY SECONDARY TO THE PATIENT'S CARDIOMYOPATHY. The patient denies any history of asthma or COPD. Of note, medical decision making is highly complex in view of the patient's new finding of cardiomyopathy with severely depressed LV ejection fraction and the patient's severe pulmonary hypertension. I will discuss with Dr. Blackwell as to whether we should get a ventilation perfusion scan to rule out the possibility that the patient's pulmonary hypertension is due to her chronic pulmonary embolic disease. Discussed with the patient in detail. NOTE: Fifteen minutes were spent with the patient, more than 50% of the time spent on direct patient care. Medications have been reviewed and medications added. We will start the patient on Lasix from tomorrow and also start the patient on spironolactone in the a.m. We will recheck the patient's renal function and also get a chest x-ray in the morning. Later, once stabilized, the patient would be recommended to have a Cardiolite Lexiscan stress test. DICTATING PHYSICIAN: THADDEUS DANIELS M.D. [id number] MARISOL#: [id number] ID: [id number] JOB#: [id number] ACCT: [id number] cc: >
--- NOTE | 2017-06-20 21:44 | PROGRESS NOTE E ---
Progress Note NAME: DEANDRE WAYNE : 1940 AGE: 77Y DATE: 06/20/2017 ROOM: 315 SUBJECTIVE: The patient denies any chest pain or discomfort. There is no PND, orthopnea. There is no leg edema. There is no chest pain or discomfort. There is no arrhythmia seen on the monitor. There are no TIA or CVA symptoms. OBJECTIVE: GENERAL: The patient is well-built and well-nourished, in no acute distress. VITAL SIGNS: She is afebrile with a temperature of 99.5 degrees Fahrenheit. Her heart rate is 87 beats per minute. Blood pressure is 103/83, respirations are 20 per minute, O2 saturation is 100% on room air. HEENT: Head is atraumatic, normocephalic. Eyes: Pupils are equal, round, regular, reactive to light and accommodation. Extraocular movements are normal. There is no conjunctival pallor. There is no scleral icterus. ENT is negative. NECK: Supple. There is no JVD. Carotids are equal. There is no bruit. There is no goiter. Trachea is central. LUNGS: Shows a small area in the left base with absent breath sounds and dullness, but this is a very small area, much less than what it was in the past. The rest of the lungs are clear without any rhonchi, rales, or wheezing. HEART: S1, S2 is heard. There is no S3 gallop. There is no S4 gallop. There is a systolic murmur of MR and TR present. There is no rub. There are no gallops. ABDOMEN: Soft, nontender. There is no hepatosplenomegaly. Bowel sounds are well heard. EXTREMITIES: Femorals are well felt. There are no femoral bruits. Leg pulses are well felt. There is no pedal edema. There is no DVT or cellulitis. There is no cyanosis or clubbing. There is no calf tenderness. CENTRAL NERVOUS SYSTEM: The patient is conscious, awake, alert, oriented x3 with no focal deficits. PSYCHIATRIC: The patient's judgement and insight are intact, her affect is normal. INTAKE/OUTPUT: The patient's 24 hour intake is not accurate, it shows an intake of 400 mL, output of 705 mL. DIAGNOSTICS: The patient's sodium is 145.3, potassium 4.0, chloride 102, CO2 is 33. The patient's BUN is 17, creatinine 0.82, GFR has normalized and greater than 60 and a glucose is 106, calcium is 9.7, magnesium is 2.0. The patient's D-dimers are elevated at 1.10. IMPRESSION AND PLAN: 1. CARDIOMYOPATHY WITH SEVERELY REDUCED LV EJECTION FRACTION. This is a new finding. The patient is already on a beta sussy and ARB. 2. ACUTE RENAL FAILURE, RESOLVED. Renal function is within normal limits. 3. HYPERKALEMIA, RESOLVED. 4. HYPOKALEMIA. This has resolved. 5. URINARY TRACT INFECTION. Patient is improving with antibiotics. Has a low grade temperature. 6. LEFT PLEURAL EFFUSION ALMOST COMPLETELY RESOLVED PER CHEST X-RAY OF 06/19/2017. 7. DIABETES MELLITUS WITH NEUROPATHY AND NEPHROPATHY. At present renal function is normal. Continue the patient's antidiabetic medication and neuropathic medication. 8. HYPERTENSION. Blood pressure is on the lower side, but the patient is tolerating her ARB and her beta sussy. We will start the patient also on spironolactone at 25 mg p.o. daily and increase it. 9. HYPERLIPIDEMIA. 10. TREMORS. The patient's tremors have not increased with the stopping of amantadine. 11. SEVERE PULMONARY HYPERTENSION BY ECHOCARDIOGRAM. The etiology of this is not known. The patient denies any symptoms suggestive of sleep apnea or a diagnosis of sleep apnea and there is no history of COPD or asthma. In view of the patient's D-dimer being elevated and now that the renal function has normalized we will get a pulmonary CT angiogram to make sure that the patient does not have pulmonary embolism. This has been discussed with the patient and discussed with Dr. Blackwell. Note medical decision making is of high complexity. Medications have been reviewed. Medications have been added and orders for CT scan have been placed. Discussed the risks and benefits of CT angiogram with the patient. TIME SPENT: Note 35 minutes spent on this patient with more than 50% of the time spent on direct patient care. Note that the patient is stable and she will be transferred out to a telemetry setting in the [facility]. DICTATING PHYSICIAN: THADDEUS DANIELS M.D. [id number] MARISOL#: [id number] ID: [id number] JOB#: [id number] ACCT: [id number] cc: >
[2017-06-20] MEDS: CEFTRIAXONE SODIUM 1,000 MG in DEXTROSE 5%-WATER 50 ML IV SCH (22:29)
[2017-06-21 04:46] LABS: ALANINE AMINOTRANSFERASE 22 U/L (9-52); ALBUMIN 3.1 g/dL (3.5-5.0); ALKALINE PHOSPHATASE 62 U/L (38-126); ASPARTATE AMINO TRANSFERASE 21 U/L (14-36); BILIRUBIN,DIRECT 0.3 mg/dL (0.0-0.4); BILIRUBIN,TOTAL 0.4 mg/dL (0.2-1.3); CHOLESTEROL 116.75 mg/dL (0-200); TOTAL PROTEIN 6.1 g/dL (6.3-8.2); TRIGLYCERIDES 111 mg/dL (<150)
[2017-06-21 04:57] LABS: DIRECT LDL 69 mg/dL (<100)
[2017-06-21] MEDS: HEPARIN SOD (PORCINE) 5,000 UNIT/ML 1 ML SYRINGE SUBCUT SCH ×3 (05:05→21:04)
[2017-06-21] MEDS: GABAPENTIN 100 MG CAPSULE PO SCH ×3 (05:13→21:04)
--- NOTE | 2017-06-21 08:29 | PDOC PROGRESS REPORT ---
Subjective Progress Note for:: 06/21/17 Subjective:: The patient states to feel better. He is sitting up in the chair resting comfortably this morning. She is presently scheduled for a CTA chest. Discussed with the patient the living will and the advanced directive. Discussed the DNR issue. Advised patient to talk to her son since she is not ready to make a decision Reason For Visit: HYPOTENSION VOMITING, FECAL IMPACTION,UTI,ARF Physical Exam Vital Signs: Temp Pulse Resp BP Pulse Ox 98.6 F 91 16 99/52 L 100 06/21/17 03:27 06/21/17 03:27 06/21/17 03:27 06/21/17 03:27 06/21/17 03:27 Intake & Output 06/20/17 06/21/17 06/22/17 06:59 06:59 06:59 Intake Total 400 208 Output Total 705 425 Balance -305 -217 Weight 71.1 kg 76 kg General appearance: PRESENT: mild distress Head exam: PRESENT: atraumatic Eye exam: PRESENT: conjunctiva pink Neck exam: PRESENT: carotid bruit. ABSENT: JVD Respiratory exam: PRESENT: crackles Cardiovascular exam: PRESENT: irregular rhythm, +S1, +S2 GI/Abdominal exam: PRESENT: normal bowel sounds, soft Extremities exam: PRESENT: tenderness Musculoskeletal exam: PRESENT: tenderness Neurological exam: PRESENT: awake Results Laboratory Results: 06/19/17 05:50 06/20/17 05:35 06/21/17 04:19 Total Bilirubin 0.4 AST 21 ALT 22 Alkaline Phosphatase 62 Total Protein 6.1 L Albumin 3.1 L Triglycerides 111 Cholesterol 116.75 LDL Cholesterol Direct 69 VLDL Cholesterol 22.0 HDL Cholesterol 40 06/16/17 06:10 Blood Blood Culture - Final NO GROWTH IN 5 DAYS 06/16/17 04:40 Blood Blood Culture - Final NO GROWTH IN 5 DAYS 06/16/17 06/16/17 06/19/17 15:55 20:50 05:50 Troponin I 0.034 NT-Pro-B Natriuret Pep 95574 H 53056 H Impressions: Acute Abdomen Series 06/16/17 00:00 IMPRESSION: Pulmonary vascular congestion. Possible 0.6 cm right renal stone. Chest X-Ray 06/19/17 00:00 IMPRESSION: Atelectasis along the left lateral costophrenic sulcus. Trace pleural fluid could not be excluded. Upright two-view chest could be useful for followup. Assessment & Plan - Diagnosis (1) Acute on chronic renal failure Qualifiers: Acute renal failure type: unspecified Chronic kidney disease stage: unspecified stage Qualified Code(s): N17.9 - Acute kidney failure, unspecified ; N18.9 - Chronic kidney disease, unspecified; N18.9 - Chronic kidney disease, unspecified Is this a current diagnosis for this admission?: Yes (2) Septic shock Is this a current diagnosis for this admission?: Yes (3) UTI (urinary tract infection) Qualifiers: Urinary tract infection type: site unspecified Hematuria presence: without hematuria Qualified Code(s): N39.0 - Urinary tract infection, site not specified Is this a current diagnosis for this admission?: Yes Plan: White count is down there is no fever. We will stop the Rocephin and continue with Levaquin (4) CHF (congestive heart failure) Qualifiers: Heart failure type: combined systolic and diastolic Heart failure chronicity: acute on chronic Qualified Code(s): I50.43 - Acute on chronic combined systolic (congestive) and diastolic (congestive) heart failure Is this a current diagnosis for this admission?: Yes Plan: Much improved we will continue with current treatment (5) Diabetes mellitus Qualifiers: Diabetes mellitus type: type 2 Diabetes mellitus complication detail: with polyneuropathy Is this a current diagnosis for this admission?: Yes Plan: Continue current treatment (6) Atrial fibrillation Is this a current diagnosis for this admission?: Yes Plan: We will continue with rate control (7) Cardiomyopathy Is this a current diagnosis for this admission?: Yes Plan: We will review the echocardiogram with cardiology (8) Pulmonary hypertension Is this a current diagnosis for this admission?: Yes Plan: According to the echocardiogram there is a right heart strain. We are evaluating the causes of pulmonary hypertension particularly the chronic pulmonary emboli
[2017-06-21] MEDS: LOSARTAN POTASSIUM 25 MG TABLET PO SCH (11:09)
[2017-06-21] MEDS: AMANTADINE HCL 100 MG CAPSULE PO SCH ×2 (11:09→18:05)
[2017-06-21] MEDS: GLIMEPIRIDE 1 MG TABLET PO SCH (11:09)
[2017-06-21] MEDS: ASPIRIN 81 MG TABLET, CHEWABLE PO SCH (11:10)
[2017-06-21] MEDS: DIGOXIN 0.125 MG TABLET PO SCH (11:10)
[2017-06-21] MEDS: METOPROLOL SUCCINATE 25 MG TAB.SR.24H PO SCH (11:10)
[2017-06-21] MEDS: SPIRONOLACTONE 25 MG TABLET PO SCH (11:10)
[2017-06-21] MEDS: LEVOFLOXACIN 500 MG TABLET PO SCH (11:10)
[2017-06-21] MEDS: DOCUSATE SODIUM 100 MG CAPSULE PO SCH ×2 (11:11→18:05)
--- NOTE | 2017-06-21 11:13 | RADIOLOGY REPORT (SQ) ---
EXAM DESCRIPTION: CTA CHEST COMPLETED DATE/TIME: 06/21/2017 10:55 am REASON FOR STUDY: Assess PE for SOB and Pulmonary Hypertension. COMPARISON: Chest films 06/05/2017, 06/16/2017, 06/19/2017 TECHNIQUE: CT scan of the chest performed using helical scanning technique with dynamic intravenous contrast injection. Images reviewed with lung, soft tissue and bone windows. Reconstructed coronal and sagittal MPR images reviewed. Additional 3 dimensional post-processing performed to develop Maximal Intensity Projection images (NH P). All images stored on PACS. All CT scanners at this facility use dose modulation, iterative reconstruction, and/or weight based d osing when appropriate to reduce radiation dose to as low as reasonably achievable (ALARA). [facility]: Dose Right [facility]: CareDose [facility]: Dose Right [facility]: Teradose 4D [facility]: [employer] CONTRAST TYPE AND DOSE: contrast/concentration: Isovue 370.00 mg/ml; Total Contrast Delivered: 62.0 ml; Total Saline Delivered: 107.0 ml Contrast bolus optimized for the pulmonary arteries. Not diagnostic for the aorta. RENAL FUNCTION: Creatinine 0.82 RADIATION DOSE: CT Rad equipment meets quality standard of care and radiation dose reduction techniq ues were employed. CTDIvol: 14.0 - 16.9 mGy. DLP: 504 mGy-cm. . LIMITATIONS: None. FINDINGS: LUNGS AND PLEURA: Trace bilateral pleural effusions are present. Minimal bibasilar atelectasis in the posterior costophrenic sulci [id number]. No fluffy alveolar infiltrates worrisome for edema or pneumonia. AORTA AND GREAT VESSELS: No aneurysm. Contrast bolus not optimized for the aorta. HEART: Trace pericardial effusion. Marked coronary artery calcifications. Mild cardiomegaly. PULMONARY ARTERIES: No emboli visualized in the main pulmonary arteries or the segmental branches. HILAR AND MEDIASTINAL STRUCTURES: Borderline enlarged prevascular, pretracheal, AP window, and precar inal lymph nodes. HARDWARE: Left-sided jugular line tip superior vena cava UPPER ABDOMEN: No significant findings. Limited exam. THYROID AND OTHER SOFT TISSUES: No masses. No adenopathy. BONES: No acute or significant finding. 3D MIPS: Confirm above findings. OTHER: No other significant finding. IMPRESSION: No CT angio evidence of acute pulmonary emboli Marked coronary artery calcifications. Trace pericardial effusion with mild cardiomegaly Borderline enlarged mediastinal lymph nodes of uncertain clinical significance COMMENT: Quality ID # [id number]: Final reports with documentation of one or more dose reduction techniques (e.g., Automated exposure control, adjustment of the mA and/or kV according to patient size, use of iterative reconstruction technique) TECHNICAL DOCUMENTATION: JOB ID: [id number] [employer]- All Rights Reserved Reading location - IP/workstation name: [email or web address] [id number]
[2017-06-21] MEDS: FLUTICASONE NASAL SPRAY 50 MCG/SPRY 120 SPRAY/16 GM NASL SCH (11:18)
--- NOTE | 2017-06-21 20:45 | PROGRESS NOTE E ---
Progress Note NAME: DEANDRE WAYNE : 1940 AGE: 77Y DATE: 06/21/2017 ROOM: 315 SUBJECTIVE: Note that the patient denies any chest pain or discomfort. There is no PND, orthopnea. There is no leg edema. There is no chest pain or discomfort. There is no arrhythmia seen on the monitor. There are no TIA or CVA symptoms. The patient denies any palpitations. OBJECTIVE: GENERAL: The patient is well-built and well-nourished, in no acute distress. VITAL SIGNS: She is afebrile with a temperature of 98.1 degrees Fahrenheit orally. Her pulse is 98 beats per minute. Blood pressure is 107/72, respirations are 16 per minute, O2 saturations are 99% on room air. HEENT: Head is atraumatic, normocephalic. Eyes: Pupils are equal, round, regular, reactive to light and accommodation. Extraocular movements are normal. There is no conjunctival pallor. There is no scleral icterus. ENT is negative. NECK: Supple. There is no JVD. Carotids are equal. There is no bruit. There is no goiter. Trachea is central. LUNGS: Are clear to auscultation and percussion. There are no rhonchi, rales, or wheezing. There is no dullness in the left base, which is resolved. There is no chest wall tenderness. There is no wheezing. HEART: S1, S2 is heard. There is no S3 gallop. There is no S4 gallop. There is a systolic murmur of MR and TR present. There is no rub. There are no gallops. ABDOMEN: Soft, nontender. There is no hepatosplenomegaly. Bowel sounds are well heard. EXTREMITIES: Femorals are well felt. There are no femoral bruits. Leg pulses are well felt. There is no pedal edema. There is no DVT or cellulitis. There is no cyanosis or clubbing. There is no calf tenderness. CENTRAL NERVOUS SYSTEM: The patient is conscious, awake, alert, oriented x3 with no focal deficits. PSYCHIATRIC: The patient's judgement and insight are intact, her affect is normal. INTAKE/OUTPUT: The patient's 24 hour intake is 280 mL, output is 425 mL. I am not sure if this is accurate. DIAGNOSTICS: The patient's chest CT angiogram showed no CTA evidence of acute pulmonary emboli, marked coronary artery calcification, trace pericardial effusion with mild cardiomegaly. Borderline enlarged mediastinal lymph nodes of uncertain clinical significance. The patient's blood sugar is 137 and 109. IMPRESSION AND PLAN: 1. CARDIOMYOPATHY WITH SEVERELY REDUCED LV EJECTION FRACTION. Continue the patient on beta sussy and ARB. The patient is also on spironolactone. 2. ACUTE RENAL FAILURE, RESOLVED. Renal function is normal. 3. HYPERKALEMIA, RESOLVED. 4. URINARY TRACT INFECTION. Patient is asymptomatic, currently on antibiotics. No fever. 5. LEFT PLEURAL EFFUSION, RESOLVED. 6. DIABETES MELLITUS WITH NEUROPATHY AND NEPHROPATHY. Continue the patient's antidiabetic medication and neuropathic medication. 7. HYPERTENSION. Blood pressure is low normal. 8. HYPERLIPIDEMIA. 9. TREMORS. No significant problems with the tremors at present with the patient being off amantadine. 10. SEVERE PULMONARY HYPERTENSION. Note the patient has no history of COPD or asthma or sleep apnea and there is no evidence of pulmonary emboli. Most likely the patient's pulmonary hypertension is secondary to left heart failure/problem. RECOMMENDATION: Note we will continue the patient's spironolactone. We will recheck the patient's renal function in the morning. The patient has been advised to take plenty of water. Discussed with the patient and patient's son all of the above findings including the CT scan findings. Also I have called the patient's metalizing machine operator, Dr. Chappell, and discussed the case in full with him, and the patient's presenting symptoms and clinical findings were all discussed with him. Also, I have discussed the echo findings and the pulmonary CT angiogram results with him. He agrees with the current treatment plan including ARBs, beta blockers, and p.r.n. diuretics. Continue spironolactone, we will increase as tolerated. TIME SPENT: Note 40 minutes spent on this patient with more than 50% of the time spent on direct patient care. Discussions were done with the patient, the patient's son and with Dr. Chappell the patient's metalizing machine operator. Medical decision making is still of high complexity. In view of the patient's ongoing symptoms of pulmonary hypertension the etiology of which is unclear. Later would recommend to see if we can start the patient on some sildenafil. Dr. Chappell will see the patient as soon as she is discharged with the patient being instructed along with the son to call Dr. Chappell's office to make an early appointment. Dr. Chappell and I discussed that the patient in view of the patient's LV dysfunction and the presence of IVCD with a QRS duration of 0.128 the patient may qualify for a biventricular AICD. This will be taken up by Dr. Chappell when the patient follows up with him. DICTATING PHYSICIAN: THADDEUS DANIELS M.D. [id number] MARISOL#: [id number] ID: [id number] JOB#: [id number] ACCT: [id number] cc: >
[2017-06-22] MEDS: HEPARIN SOD (PORCINE) 5,000 UNIT/ML 1 ML SYRINGE SUBCUT SCH ×2 (05:10→14:00)
[2017-06-22] MEDS: GABAPENTIN 100 MG CAPSULE PO SCH ×2 (05:10→14:00)
[2017-06-22 05:22] LABS: ABSOLUTE EOSINOPHILS # (AUTO) 0.2 10^3/uL (0.0-0.6); ABSOLUTE LYMPHOCYTES (AUTO) 1.3 10^3/uL (0.5-4.7); ABSOLUTE MONOCYTES (AUTO) 0.6 10^3/uL (0.1-1.4); ABSOLUTE NEUT (AUTO) 3.2 10^3/uL (1.7-8.2); BASOPHILS % (AUTO) 0.7 % (0-2); EOSINOPHILS % (AUTO) 3.8 % (0-6); HEMATOCRIT 37.3 % (36.0-47.0); HEMOGLOBIN 12.2 g/dL (12.0-15.5); LYMPHOCYTES % (AUTO) 24.2 % (13-45); MEAN CORPUSCULAR HEMOGLOBIN 31.8 pg (27.0-33.4); MEAN CORPUSCULAR HGB CONC 32.7 g/dL (32.0-36.0); MEAN CORPUSCULAR VOLUME 97 fl (80-97); MONOCYTES % (AUTO) 11.9 % (3-13); PLATELET COUNT 119 10^3/uL (150-450); RED BLOOD COUNT 3.83 10^6/uL (3.72-5.28); RED CELL DISTRIBUTION WIDTH 13.6 % (11.5-14.0); SEGMENTED NEUTROPHILS % (AUTO) 59.4 % (42-78); TOTAL CELLS COUNTED % (AUTO) 100 %; WHITE BLOOD COUNT 5.4 10^3/uL (4.0-10.5)
[2017-06-22 05:45] LABS: ALANINE AMINOTRANSFERASE 26 U/L (9-52); ALBUMIN 3.2 g/dL (3.5-5.0); ALKALINE PHOSPHATASE 58 U/L (38-126); ANION GAP 12 (5-19); ASPARTATE AMINO TRANSFERASE 24 U/L (14-36); BILIRUBIN,DIRECT 0.4 mg/dL (0.0-0.4); BILIRUBIN,TOTAL 0.5 mg/dL (0.2-1.3); BLOOD UREA NITROGEN 17 mg/dL (7-20); CALCIUM 9.6 mg/dL (8.4-10.2); CARBON DIOXIDE 29 mmol/L (22-30); CHLORIDE 104 mmol/L (98-107); GLUCOSE 84 mg/dL (75-110); POTASSIUM 4.1 mmol/L (3.6-5.0); SODIUM 145.4 mmol/L (137-145); TOTAL PROTEIN 6.3 g/dL (6.3-8.2)
--- NOTE | 2017-06-22 08:18 | PDOC PROGRESS REPORT ---
Subjective Progress Note for:: 06/22/17 Subjective:: The patient states to feel well. Discussed again with the patient about rehab. She is agreeing to it. The cardiology note reviewed. Will continue with current treatment and other arrangements will be made by Dr. Chappell as an outpatient Reason For Visit: HYPOTENSION VOMITING, FECAL IMPACTION,UTI,ARF Physical Exam Vital Signs: Temp Pulse Resp BP Pulse Ox 97.8 F 84 18 94/51 L 94 06/22/17 03:09 06/22/17 03:09 06/22/17 03:09 06/22/17 03:09 06/22/17 03:09 Intake & Output 06/21/17 06/22/17 06/23/17 06:59 06:59 06:59 Intake Total 208 839 Output Total 425 625 Balance -217 214 Weight 76 kg 74.5 kg General appearance: PRESENT: no acute distress Eye exam: PRESENT: conjunctiva pink Neck exam: PRESENT: carotid bruit. ABSENT: JVD Cardiovascular exam: PRESENT: +S1, +S2 Extremities exam: PRESENT: tenderness Musculoskeletal exam: PRESENT: tenderness Neurological exam: PRESENT: alert, awake Results Laboratory Results: 06/22/17 04:54 06/22/17 04:54 06/22/17 06/22/17 04:54 04:54 WBC 5.4 RBC 3.83 Hgb 12.2 Hct 37.3 MCV 97 MCH 31.8 MCHC 32.7 RDW 13.6 Plt Count 119 L Seg Neutrophils % 59.4 Lymphocytes % 24.2 Monocytes % 11.9 Eosinophils % 3.8 Basophils % 0.7 Absolute Neutrophils 3.2 Absolute Lymphocytes 1.3 Absolute Monocytes 0.6 Absolute Eosinophils 0.2 Absolute Basophils 0.0 Sodium 145.4 H Potassium 4.1 Chloride 104 Carbon Dioxide 29 Anion Gap 12 BUN 17 Creatinine 0.85 Est GFR ( Amer) > 60 Est GFR (Non-Af Amer) > 60 Glucose 84 Calcium 9.6 Total Bilirubin 0.5 AST 24 ALT 26 Alkaline Phosphatase 58 Total Protein 6.3 Albumin 3.2 L 06/16/17 06:10 Blood Blood Culture - Final NO GROWTH IN 5 DAYS 06/16/17 04:40 Blood Blood Culture - Final NO GROWTH IN 5 DAYS 06/16/17 06/16/17 06/19/17 15:55 20:50 05:50 Troponin I 0.034 NT-Pro-B Natriuret Pep 16968 H [id number] H Impressions: Acute Abdomen Series 06/16/17 00:00 IMPRESSION: Pulmonary vascular congestion. Possible 0.6 cm right renal stone. Chest X-Ray 06/19/17 00:00 IMPRESSION: Atelectasis along the left lateral costophrenic sulcus. Trace pleural fluid could not be excluded. Upright two-view chest could be useful for followup. Chest/Abdomen CTA 06/21/17 06:00 IMPRESSION: No CT angio evidence of acute pulmonary emboli Marked coronary artery calcifications. Trace pericardial effusion with mild cardiomegaly Borderline enlarged mediastinal lymph nodes of uncertain clinical significance Assessment & Plan - Diagnosis (1) Acute on chronic renal failure Qualifiers: Acute renal failure type: unspecified Chronic kidney disease stage: unspecified stage Qualified Code(s): N17.9 - Acute kidney failure, unspecified ; N18.9 - Chronic kidney disease, unspecified; N18.9 - Chronic kidney disease, unspecified Is this a current diagnosis for this admission?: Yes (2) Septic shock Is this a current diagnosis for this admission?: Yes (3) UTI (urinary tract infection) Qualifiers: Urinary tract infection type: site unspecified Hematuria presence: without hematuria Qualified Code(s): N39.0 - Urinary tract infection, site not specified Is this a current diagnosis for this admission?: Yes (4) CHF (congestive heart failure) Qualifiers: Heart failure type: combined systolic and diastolic Heart failure chronicity: acute on chronic Qualified Code(s): I50.43 - Acute on chronic combined systolic (congestive) and diastolic (congestive) heart failure Is this a current diagnosis for this admission?: Yes (5) Diabetes mellitus Qualifiers: Diabetes mellitus type: type 2 Diabetes mellitus complication detail: with polyneuropathy Is this a current diagnosis for this admission?: Yes Plan: Continue current treatment (6) Atrial fibrillation Is this a current diagnosis for this admission?: Yes Plan: We will continue with rate control (7) Cardiomyopathy Is this a current diagnosis for this admission?: Yes Plan: We will review the echocardiogram with cardiology (8) Pulmonary hypertension Is this a current diagnosis for this admission?: Yes Plan: According to the echocardiogram there is a right heart strain. We are evaluating the causes of pulmonary hypertension particularly the chronic pulmonary emboli
[2017-06-22] MEDS: DIGOXIN 0.125 MG TABLET PO SCH (09:03)
[2017-06-22] MEDS: DOCUSATE SODIUM 100 MG CAPSULE PO SCH (09:03)
[2017-06-22] MEDS: AMANTADINE HCL 100 MG CAPSULE PO SCH (09:04)
[2017-06-22] MEDS: LEVOFLOXACIN 500 MG TABLET PO SCH (09:04)
[2017-06-22] MEDS: METOPROLOL SUCCINATE 25 MG TAB.SR.24H PO SCH (09:04)
[2017-06-22] MEDS: SPIRONOLACTONE 25 MG TABLET PO SCH (09:04)
[2017-06-22] MEDS: LOSARTAN POTASSIUM 25 MG TABLET PO SCH (09:04)
[2017-06-22] MEDS: ASPIRIN 81 MG TABLET, CHEWABLE PO SCH (09:05)
[2017-06-22] MEDS: GLIMEPIRIDE 1 MG TABLET PO SCH (09:05)
[2017-06-22] MEDS: FLUTICASONE NASAL SPRAY 50 MCG/SPRY 120 SPRAY/16 GM NASL SCH (09:05)
--- NOTE | 2017-06-22 10:50 | PDOC DISCHARGE SUMMARY ---
General - Admit/Disc Date/PCP Admission Date/Primary Care Provider: 06/16/17 03:55 ALEXANDR ABRAHAM, Discharge Date: 06/22/17 - Discharge Diagnosis (1) Acute on chronic renal failure Is this a current diagnosis for this admission?: Yes (2) Septic shock Is this a current diagnosis for this admission?: Yes (3) UTI (urinary tract infection) Is this a current diagnosis for this admission?: Yes (4) CHF (congestive heart failure) Is this a current diagnosis for this admission?: Yes (5) Diabetes mellitus Is this a current diagnosis for this admission?: Yes Summary: Strict diabetic diet and continue current medications (6) Atrial fibrillation Is this a current diagnosis for this admission?: Yes Summary: Stable and rate control will continue with metoprolol (7) Cardiomyopathy Is this a current diagnosis for this admission?: Yes Summary: We will continue with metoprolol, losartan and spironolactone and Lasix (8) Pulmonary hypertension Is this a current diagnosis for this admission?: Yes Summary: The patient's echocardiogram was consistent with right side strain. The business resiliency manager magnetic resonance imaging coordinator has discussed the case with patient's private business resiliency manager Dr. Chappell who will follow up with the patient and probably start new medications as an outpatient - Additional Information Resuscitation Status: Full Code Discharge Diet: Cardiac, Diabetic Discharge Activity: Activity As Tolerated Home Medications: Amantadine HCl [Amantadine] 100 mg PO BID 06/06/17 Famotidine [Pepcid 40 mg Tablet] 40 mg PO DAILY 06/06/17 Fluticasone Propionate [Flonase Nasal [place] 50 Mcg/[place] 16 gm] 1 spray NASL DAILY 06/06/17 Fluticasone/Vilanterol [Breo Ellipta 100-25 Mcg INH] 1 puff IH DAILY 06/06/17 Glimepiride [Amaryl 1 mg Tablet] 1 mg PO DAILY 06/06/17 Metoprolol Succinate [Toprol Xl 25 mg Tab.sr] 25 mg PO DAILY 06/06/17 Furosemide [Lasix 40 mg Tablet] 40 mg PO DAILY tablet 06/08/17 Amantadine HCl [Symmetrel 100 mg Capsule] 100 mg PO BID capsule 06/22/17 Aspirin [Aspirin 81 mg Chewable Tablet] 81 mg PO DAILY tab.chew 06/22/17 Docusate Sodium [Colace 100 mg Capsule] 100 mg PO BID capsule 06/22/17 Gabapentin [Neurontin 100 mg Capsule] 100 mg PO Q8 capsule 06/22/17 Losartan Potassium [Cozaar 25 mg Tablet] 25 mg PO DAILY tablet 06/22/17 History of Present Illness History of Present Illness: DEANDRE WAYNE is a 77 year old female Hospital Course Hospital Course: The patient was admitted with septic shock. She has been treated with IV fluids in the ICU and 2 pressors. She has developed atrial fibrillation which was rate controlled. She was seen by cardiology and eventually weaned off the pressors and continue with some fluids. Her blood pressure has stabilized. The IV antibiotics have been switched to p.o. Her white count has remained stable. Because of congestive heart failure and atrial fibrillation the patient had significant amount of diureses. Her symptoms have improved over the next several days she was transferred out of the intensive care unit. She has remained stable. Case was discussed with cardiology he was concerned that her right heart pressures were elevated on the echocardiogram. The patient underwent CTA of the chest which did not show any pulmonary emboli. On admission the patient was in acute on chronic renal failure. With several days of IV hydration the patient's kidney function has improved back to normal and all of her medications have been resumed. On the day of discharge she appeared comfortable in no acute distress vital signs stable neck supple no JVD right side bruit heart S1-S2 irregularly irregular abdomen soft bowel sounds positive extremities no edema cyanosis or clubbing neurologically no tremor noted. Physical Exam Vital Signs: Temp Pulse Resp BP Pulse Ox 97.9 F 63 16 122/65 94 06/22/17 08:43 06/22/17 08:43 06/22/17 08:43 06/22/17 08:43 06/22/17 03:09 Intake & Output 06/21/17 06/22/17 06/23/17 06:59 06:59 06:59 Intake Total 208 839 Output Total 425 625 Balance -217 214 Weight 76 kg 74.5 kg General appearance: PRESENT: no acute distress Head exam: PRESENT: atraumatic Eye exam: PRESENT: conjunctiva pink Neck exam: PRESENT: carotid bruit. ABSENT: JVD Respiratory exam: PRESENT: clear to auscultation marzena Cardiovascular exam: PRESENT: irregular rhythm, +S1, +S2 Pulses: PRESENT: +1 pedal pulses bilateral GI/Abdominal exam: PRESENT: normal bowel sounds, soft Extremities exam: PRESENT: tenderness Musculoskeletal exam: PRESENT: tenderness Neurological exam: PRESENT: alert, awake Results Laboratory Results: 06/22/17 04:54 06/22/17 04:54 06/22/17 06/22/17 04:54 04:54 WBC 5.4 RBC 3.83 Hgb 12.2 Hct 37.3 MCV 97 MCH 31.8 MCHC 32.7 RDW 13.6 Plt Count 119 L Seg Neutrophils % 59.4 Lymphocytes % 24.2 Monocytes % 11.9 Eosinophils % 3.8 Basophils % 0.7 Absolute Neutrophils 3.2 Absolute Lymphocytes 1.3 Absolute Monocytes 0.6 Absolute Eosinophils 0.2 Absolute Basophils 0.0 Sodium 145.4 H Potassium 4.1 Chloride 104 Carbon Dioxide 29 Anion Gap 12 BUN 17 Creatinine 0.85 Est GFR ( Amer) > 60 Est GFR (Non-Af Amer) > 60 Glucose 84 Calcium 9.6 Total Bilirubin 0.5 AST 24 ALT 26 Alkaline Phosphatase 58 Total Protein 6.3 Albumin 3.2 L 06/16/17 06/16/17 06/19/17 15:55 20:50 05:50 Troponin I 0.034 NT-Pro-B Natriuret Pep 67028 H [id number] H Impressions: Acute Abdomen Series 06/16/17 00:00 IMPRESSION: Pulmonary vascular congestion. Possible 0.6 cm right renal stone. Chest X-Ray 06/19/17 00:00 IMPRESSION: Atelectasis along the left lateral costophrenic sulcus. Trace pleural fluid could not be excluded. Upright two-view chest could be useful for followup. Chest/Abdomen CTA 06/21/17 06:00 IMPRESSION: No CT angio evidence of acute pulmonary emboli Marked coronary artery calcifications. Trace pericardial effusion with mild cardiomegaly Borderline enlarged mediastinal lymph nodes of uncertain clinical significance Qualifiers - * PATIENT BEING DISCHARGED WITH ANY OF THE FOLLOWING DIAGNOSIS: Heart Failure HF Pt being discharged on ACEI for LVEF less than 40%?: Yes HF Pt being discharged on ARBS for LVEF less than 40%?: Yes HF Pt with Afib discharged with Warfarin?: No Reason(s) for not prescribing Warfarin:: Medical Contraindication HF Pt discharged on evidence-based Beta Klaus:: Yes
[2017-06-22 14:11] VITALS: BP 122/65
--- NOTE | 2017-06-22 19:24 | PROGRESS NOTE E ---
Progress Note NAME: DEANDRE WAYNE : 1940 AGE: 77Y DATE: 06/22/2017 ROOM: 315 SUBJECTIVE: The patient denies any chest pain or discomfort. She has been ambulating in the room and up to the bathroom without any symptoms of shortness of breath. There is no chest pain or chest pressure. There is no PND, orthopnea, or leg edema. There is no arrhythmia seen. There are no TIA or CVA symptoms. The patient denies any palpitations. The patient is not bothered by any tremors since her amantadine has been stopped. The patient is going to be discharged to rehab facility today. OBJECTIVE: GENERAL: The patient is well-built and well-nourished, in no acute distress. VITAL SIGNS: She is afebrile with a temperature of 97.9 degrees Fahrenheit. Her pulse is 98 beats per minute. Blood pressure is 122/65, respirations are 16 per minute, O2 saturations are 97% on room air. HEENT: Head is atraumatic, normocephalic. Eyes: Pupils are equal, round, regular, reactive to light and accommodation. Extraocular movements are normal. There is no conjunctival pallor. There is no scleral icterus. ENT is negative. NECK: Supple. There is no JVD. Carotids are equal. There is no bruit. There is no lymphadenopathy. There is no goiter. Trachea is central. There is no neck stiffness. LUNGS: Are clear to auscultation and percussion. There are no rhonchi, rales, or wheezing. There is no dullness or areas of absent breath sounds. HEART: S1, S2 is heard. There is no S3 gallop. There is no S4 gallop. There is a systolic murmur in the left sternal border and the apex. There is no rub. ABDOMEN: Soft, nontender. There is no hepatosplenomegaly. Bowel sounds are well heard. There are no tender areas or masses. EXTREMITIES: Femorals are well felt. There are no femoral bruits. Leg pulses are well felt. There is no pedal edema. There is no DVT or cellulitis. There is no cyanosis or clubbing. There is no calf tenderness. CENTRAL NERVOUS SYSTEM: The patient is conscious, awake, alert, oriented x3 with no focal deficits. PSYCHIATRIC: The patient's judgement and insight are intact, her affect is normal. INTAKE/OUTPUT: The patient's 24 hour intake has been reported as 839 mL, output is 625 mL. DIAGNOSTICS: The patient's white count is 5400, hemoglobin is 12.2, hematocrit is 37.3, platelet count is 119,000. The patient's sodium is 145.4, potassium is 4.1, chloride is 104, CO2 is 29. The patient's BUN is 17, creatinine is 0.8, GFR is greater than 60. Her calcium is 9.6. Her liver function tests are normal. Albumin is 3.2, total protein is 6.3. Her glucose is 86. IMPRESSION AND PLAN: 1. CARDIOMYOPATHY WITH SEVERELY REDUCED LV EJECTION FRACTION. The patient is presently on a beta sussy and ARB. The patient is also on spironolactone. The patient is asymptomatic. 2. ACUTE RENAL FAILURE, RESOLVED. Renal function now normal. 3. HYPERKALEMIA, RESOLVED. 4. URINARY TRACT INFECTION, TREATED. 5. LEFT PLEURAL EFFUSION, RESOLVED. 6. DIABETES MELLITUS WITH NEUROPATHY AND NEPHROPATHY. At present no symptoms of neuropathy, but her nephropathy has improved with a normal renal function. 7. HYPERTENSION. Blood pressure is well-controlled on current medication. 8. HYPERLIPIDEMIA. 9. TREMORS. At present I do not see any tremors. The patient is off amantadine. RECOMMENDATION: The patient is stable. She will follow up with Dr. Chappell for further management of the patient's cardiomyopathy which may include not only increasing and titrating her anti-cardiomyopathy medications and also the possibility of her getting biventricular AICD since the patient has left bundle branch block type of IVCD on her EKG. All these discussed with the patient. The patient will be discharged today. Her medications have been reviewed. Medical decision making is of moderate complexity. TIME SPENT: Note 30 minutes spent on this patient with more than 50% of the time spent on direct patient care. The patient is being transferred to a rehab facility. We will sign off the case. Discussed with Dr. Blackwell the attending on record. Thank you for asking me to participate in the care of this patient. DICTATING PHYSICIAN: THADDEUS DANIELS M.D. [id number] PHY#: [id number] ID: [id number] JOB#: [id number] ACCT: [id number] cc: >
== END 2017-06-22 16:15 | disposition short-term general hospital (02) | DRG 871 ==
LOC: ER 23:19 → EH 06-16 03:55 → 3W 06-16 05:51 → ICU 06-16 13:12 → 3W 06-20 16:16
PROVIDERS: ADMIT Internal Medicine; ATTEND Internal Medicine
PROC: 02HV33Z Insertion of Infusion Device into Superior Vena Cava, Percutaneous Approach (ICD-10-PCS; principal; 2017-06-16)
PROC: B548ZZA Ultrasonography of Superior Vena Cava, Guidance (ICD-10-PCS; 2017-06-16)
DX: A41.9 Sepsis, unspecified organism (principal); R65.21 Severe sepsis with septic shock; I50.43 Acute on chronic combined systolic (congestive) and diastolic (congestive) heart failure; N17.9 Acute kidney failure, unspecified; N39.0 Urinary tract infection, site not specified; I13.0 Hypertensive heart and chronic kidney disease with heart failure and stage 1 through stage 4 chronic kidney disease, or unspecified chronic kidney disease; N18.2 Chronic kidney disease, stage 2 (mild); E87.5 Hyperkalemia; I95.9 Hypotension, unspecified; E11.42 Type 2 diabetes mellitus with diabetic polyneuropathy; K56.41 Fecal impaction; I48.91 Unspecified atrial fibrillation; I08.1 Rheumatic disorders of both mitral and tricuspid valves; I27.20 Pulmonary hypertension, unspecified; E11.22 Type 2 diabetes mellitus with diabetic chronic kidney disease; R25.1 Tremor, unspecified; J45.909 Unspecified asthma, uncomplicated; Z79.84 Long term (current) use of oral hypoglycemic drugs; Z79.899 Other long term (current) drug therapy
CPT/HCPCS: 36415; 71045; 71275; 74022; 80048; 80053; 80061; 80069; 80076; 81001; 82533; 82962; 83690; 83735; 83880; 84484; 85025; 85379; 85652; 87040; 87086; 87088; 87186; 93005; 93010; 93306; 94640; 96360; 96361; 99285; C1751; G8978-GP; G8979-GP; J0610; J0696; J1265; J1642; J1644; J1720; J1940; J2370; J3370; J3475; J3480; J3490; J7030; J7040; J7050; J7060; J7620

== ENCOUNTER → 2017-07-18 | Outpatient (CLI) | payer MEDICARE, OTHER ==
[2017-07-18 12:33] LABS: APPEARANCE,URINE CLEAR; BILIRUBIN,URINE NEGATIVE (NEGATIVE); COLOR,URINE STRAW; GLUCOSE, URINE NEGATIVE (NEGATIVE); KETONES,URINE NEGATIVE (NEGATIVE); LEUKOCYTE ESTERASE,URINE TRACE (NEGATIVE); NITRITE,URINE NEGATIVE (NEGATIVE); PROTEIN,URINE NEGATIVE (NEGATIVE); URINE SPECIFIC GRAVITY 1.008; UROBILINOGEN,URINE NEGATIVE mg/dL (<2.0)
[2017-07-18 12:50] LABS: ALBUMIN 4.1 g/dL (3.5-5.0); ANION GAP 14 (5-19); BLOOD UREA NITROGEN 28 mg/dL (7-20); CALCIUM 9.9 mg/dL (8.4-10.2); CARBON DIOXIDE 29 mmol/L (22-30); CHLORIDE 101 mmol/L (98-107); GLUCOSE 89 mg/dL (75-110); PHOSPHORUS 3.3 mg/dL (2.5-4.5); POTASSIUM 4.6 mmol/L (3.6-5.0); SODIUM 144.4 mmol/L (137-145)
[2017-07-18 13:02] LABS: UR PRO/CREAT RATIO RESULT 0.5 mg/mg (0.0-0.2); URINE CREATININE 27.3 mg/dL (15-278)
== END ==
LOC: OD 11:23
PROVIDERS: ATTEND Internal Medicine Nephrology
DX: N18.3 Chronic kidney disease, stage 3 (moderate) (principal)
CPT/HCPCS: 36415; 80069; 81001; 82306; 82570; 83970; 84156

== ENCOUNTER 2017-08-23 16:09 | Emergency (ER) | payer MEDICARE, OTHER ==
--- NOTE | 2017-08-23 16:43 | ER Document Report ---
ED Medical Screen (RME) - General Chief Complaint: Shortness Of Breath Stated Complaint: SHORTNESS OF BREATH Time Seen by Provider: 08/23/17 16:33 Notes: RAPID MEDICAL EVALUATION DISCLOSURE I have seen this patient as part of a Rapid Medical Evaluation and, if applicable, placed any initially appropriate orders. The patient will be seen and fully evaluated, including a full history and physical exam, by a provider ( in Main ED or Fast Track) when a room becomes available. 69-year-old female PMH CHF here with complaints of shortness of breath ongoing for the past few days. She denies any chest pain discomfort tightness. She told the pivot nurse she was having an irregular heartbeat sensation however when I ask you during my history taking she denies having any palpitations or irregular heartbeat sensation. Her shortness of breath is worse at nighttime particularly when she is about to go to sleep. She does not have any cough fevers chills nausea vomiting diarrhea. EXAM Discrete bibasilar rales RRR TRAVEL OUTSIDE OF THE [place] IN LAST 30 DAYS: No - Related Data Allergies/Adverse Reactions: No Known Allergies Allergy (Verified 06/05/17 15:49) Past Medical History - Social History Chew tobacco use (# tins/day): No Frequency of alcohol use: None Drug Abuse: None - Past Medical History Cardiac Medical History: Reports: Hx Congestive Heart Failure, Hx Hypertension Denies: Hx Heart Attack Pulmonary Medical History: Reports: Hx Asthma - NO INHALER Neurological Medical History: Denies: Hx Cerebrovascular Accident, Hx Seizures Endocrine Medical History: Reports: Hx Diabetes Mellitus Type 2 Renal/ Medical History: Denies: Hx Peritoneal Dialysis GI Medical History: Denies: Hx Hepatitis, Hx Hiatal Hernia, Hx Ulcer Psychiatric Medical History: Denies: Hx Depression Infectious Medical History: Denies: Hx Hepatitis Past Surgical History: Denies: Hx Mastectomy, Hx Open Heart Surgery, Hx Pacemaker - Immunizations History of Influenza Vaccine for 11/2016 - 04/2017 Season: Yes Influenza Administration Date for 11/2016 - 04/2017 Season: 11/05/16 Physical Exam - Vital signs Vitals: Temp Pulse Resp BP Pulse Ox 97.5 F 92 20 97/69 L 95 08/23/17 16:28 08/23/17 16:28 08/23/17 16:28 08/23/17 16:28 08/23/17 16:28 Course - Vital Signs Vital signs: Temp Pulse Resp BP Pulse Ox 97.5 F 92 20 97/69 L 95 08/23/17 16:28 08/23/17 16:28 08/23/17 16:28 08/23/17 16:28 08/23/17 16:28 Doctor's Discharge - Discharge Referrals: ALEXANDR ABRAHAM MD [Primary Care Provider] - Follow up as needed
[2017-08-23 17:36] LABS: ABSOLUTE BASOPHILS # (AUTO) 0.1 10^3/uL (0.0-0.2); ABSOLUTE EOSINOPHILS # (AUTO) 0.1 10^3/uL (0.0-0.6); ABSOLUTE LYMPHOCYTES (AUTO) 2.3 10^3/uL (0.5-4.7); ABSOLUTE MONOCYTES (AUTO) 0.9 10^3/uL (0.1-1.4); BASOPHILS % (AUTO) 1.1 % (0-2); EOSINOPHILS % (AUTO) 1.4 % (0-6); HEMATOCRIT 41.1 % (36.0-47.0); HEMOGLOBIN 13.5 g/dL (12.0-15.5); MEAN CORPUSCULAR HEMOGLOBIN 30.2 pg (27.0-33.4); MEAN CORPUSCULAR HGB CONC 32.9 g/dL (32.0-36.0); MEAN CORPUSCULAR VOLUME 92 fl (80-97); MONOCYTES % (AUTO) 11.6 % (3-13); PLATELET COUNT 198 10^3/uL (150-450); RED BLOOD COUNT 4.47 10^6/uL (3.72-5.28); SEGMENTED NEUTROPHILS % (AUTO) 53.9 % (42-78); TOTAL CELLS COUNTED % (AUTO) 100 %; WHITE BLOOD COUNT 7.3 10^3/uL (4.0-10.5)
[2017-08-23 17:44] LABS: ANION GAP 17 (5-19); BLOOD UREA NITROGEN 27 mg/dL (7-20); CALCIUM 9.9 mg/dL (8.4-10.2); CARBON DIOXIDE 26 mmol/L (22-30); CHLORIDE 100 mmol/L (98-107); GLUCOSE 125 mg/dL (75-110); POTASSIUM 5.1 mmol/L (3.6-5.0); SODIUM 143.3 mmol/L (137-145)
--- NOTE | 2017-08-23 17:48 | RADIOLOGY REPORT (SQ) ---
EXAM DESCRIPTION: CHEST 2 VIEWS COMPLETED DATE/TIME: 08/23/2017 5:12 pm REASON FOR STUDY: SOB COMPARISON: 06/05/2017 EXAM PARAMETERS: NUMBER OF VIEWS: two views TECHNIQUE: Digital Frontal and Lateral radiographic views of the chest acquired. RADIATION DOSE: NA LIMITATIONS: none FINDINGS: LUNGS AND PLEURA: No acute opacities, masses or pneumothorax. Similar bilateral pleural s carring. MEDIASTINUM AND HILAR STRUCTURES: Stable. HEART AND VASCULAR STRUCTURES: Similar cardiomegaly. BONES: No acute findings. HARDWARE: None in the chest. OTHER: No other significant finding. IMPRESSION: NO ACUTE RADIOGRAPHIC FINDING IN THE CHEST. TECHNICAL DOCUMENTATION: JOB ID: [id number] [id number] [employer]- All Rights Reserved Reading location - IP/workstation name: [email or web address]
[2017-08-23 17:55] LABS: TROPONIN I 0.025 ng/mL
--- NOTE | 2017-08-23 20:32 | ER Document Report ---
ED Respiratory Problem - General Chief Complaint: Shortness Of Breath Stated Complaint: SHORTNESS OF BREATH Time Seen by Provider: 08/23/17 16:33 Notes: Patient is a 77-year-old female comes emergency intermittent shortness of breath for the past 3 days. She denies any significant lower extremity swelling , she states she feels worse when she is lying down, intermittently she can walk okay but another time she becomes rapidly out of breath. She denies any specific chest pain, fever, cough, wheezing. Past medical history includes congestive heart failure, she had echocardiogram 2 months ago suggesting pulmonary hypertension, hypertension, type 2 diabetes. She follows with cardiology Dr. Chappell in [place], she states she was supposed to get an echocardiogram tomorrow and they will talk about putting a pacemaker and because of intermittent arrhythmias. She denies any current symptoms. TRAVEL OUTSIDE OF THE [place] IN LAST 30 DAYS: No - Related Data Allergies/Adverse Reactions: No Known Allergies Allergy (Verified 06/05/17 15:49) Past Medical History - General Information source: Patient - Social History Smoking Status: Never Smoker Chew tobacco use (# tins/day): No Frequency of alcohol use: None Drug Abuse: None Lives with: Family Family History: Reviewed & Not Pertinent Patient has suicidal ideation: No Patient has homicidal ideation: No - Past Medical History Cardiac Medical History: Reports: Hx Congestive Heart Failure, Hx Hypertension Denies: Hx Heart Attack Pulmonary Medical History: Reports: Hx Asthma - NO INHALER Neurological Medical History: Denies: Hx Cerebrovascular Accident, Hx Seizures Endocrine Medical History: Reports: Hx Diabetes Mellitus Type 2 Renal/ Medical History: Denies: Hx Peritoneal Dialysis GI Medical History: Denies: Hx Hepatitis, Hx Hiatal Hernia, Hx Ulcer Psychiatric Medical History: Denies: Hx Depression Infectious Medical History: Denies: Hx Hepatitis Past Surgical History: Denies: Hx Mastectomy, Hx Open Heart Surgery, Hx Pacemaker - Immunizations Hx Diphtheria, Pertussis, Tetanus Vaccination: Yes Review of Systems - Review of Systems Constitutional: No symptoms reported EENT: No symptoms reported Cardiovascular: See HPI Respiratory: See HPI Gastrointestinal: No symptoms reported Genitourinary: No symptoms reported Female Genitourinary: No symptoms reported Musculoskeletal: No symptoms reported Skin: No symptoms reported Hematologic/Lymphatic: No symptoms reported Neurological/Psychological: No symptoms reported Physical Exam - Vital signs Vitals: Temp Pulse Resp BP Pulse Ox 97.5 F 92 20 97/69 L 95 08/23/17 16:28 08/23/17 16:28 08/23/17 16:28 08/23/17 16:28 08/23/17 16:28 - Notes Notes: GENERAL: Alert, interacts well. No acute distress. HEAD: Normocephalic, atraumatic. EYES: Pupils equal, round, and reactive to light. Extraocular movements intact. ENT: Oral mucosa moist, tongue midline. NECK: Full range of motion. Supple. Trachea midline. LUNGS: Very soft rales in the base of the lungs, this is minimal, no rhonchi or wheezing, clear lungs otherwise. No respiratory distress. HEART: Regular rate and rhythm. No murmur ABDOMEN: Soft, non-tender. Non-distended. Bowel sounds present in all 4 quadrants. EXTREMITIES: Moves all 4 extremities spontaneously. No edema, normal radial and dorsalis pedis pulses bilaterally. No cyanosis. BACK: no cervical, thoracic, lumbar midline tenderness. No saddle anesthesia, normal distal neurovascular exam. NEUROLOGICAL: Alert and oriented x3. Normal speech. [cranial nerves II through XII grossly intact]. PSYCH: Normal affect, normal mood. SKIN: Warm, dry, normal turgor. No rashes or lesions noted. Course - Re-evaluation Re-evalutation: 08/23/17 20:30 Questionable minimal rales in the lung bases, BNP is 30,000 which is greater than previously, blood pressure is borderline low but this is consistent with her previous blood pressures. Patient denies shortness of breath, does not appear to be in any respiratory distress. Past medical history of CHF and pulmonary hypertension, compliant with her 40 mg Lasix daily. EKG showing sinus rhythm at a rate of 90, flattened T waves inferiorly, poor R- wave progression, no T-wave inversions or ST segment changes in sedative leads. No significant change from prior. Chest x-ray does not show pulmonary edema. CBC, chemistry generally unremarkable with borderline renal functioning similar to prior. Because of patient's age, comorbidities, borderline CHF, and reported intermittent shortness of breath discussed admission. Patient does not want to be admitted. Discussed with Dr. Gr. Decision was made to ambulate patient. She did this very well, no hypoxia, no tachycardia, ambulates actually quite rapidly without any signs of distress. Patient states that she will see her nurse discharge planner tomorrow and she will return if she worsens in any way. Son at bedside states understanding and agreement with this plan. Discharged with return precautions. - Vital Signs Vital signs: Temp Pulse Resp BP Pulse Ox 97.5 F 92 18 99/61 L 96 08/23/17 16:28 08/23/17 16:28 08/23/17 22:04 08/23/17 22:04 08/23/17 22:04 - Laboratory Result Diagrams: 08/23/17 16:47 08/23/17 16:47 Laboratory results interpreted by me: 08/23/17 08/23/17 08/23/17 16:47 16:47 16:47 RDW 15.0 H Potassium 5.1 H BUN 27 H Creatinine 1.56 H Est GFR ( Amer) 39 L Est GFR (Non-Af Amer) 32 L Glucose 125 H NT-Pro-B Natriuret Pep 46662 H Discharge - Discharge Clinical Impression: Shortness of breath Condition: Stable Disposition: HOME, SELF-CARE Additional Instructions: Your workup tonight showed borderline congestive heart failure but your remaining evaluation did not show any concerning abnormality. Continue current medications, please see your nurse discharge planner tomorrow as discussed, return immediately if you worsen in anyway including difficulty breathing, passing out , chest pain, fever, or any other concerning symptoms. Referrals: ALEXANDR ABRAHAM MD [Primary Care Provider] - Follow up as needed
--- NOTE | 2017-08-23 23:13 | EKG REPORT ---
SEVERITY:- ABNORMAL ECG - SINUS RHYTHM NONSPECIFIC INTRAVENTRICULAR CONDUCTION DELAY LATERAL INFARCT, AGE INDETERMINATE ABNRM R PROG, CONSIDER ASMI OR LEAD PLACEMENT : Confirmed by: Kael Fuentes 23-Aug-2017 23:13:21
[2017-08-23 23:25] VITALS: BP 93/66
== END 2017-08-23 23:26 | disposition home or self-care (01) ==
LOC: ER 16:09
DX: I11.0 Hypertensive heart disease with heart failure (principal); I50.9 Heart failure, unspecified; Z79.899 Other long term (current) drug therapy; J45.909 Unspecified asthma, uncomplicated; R06.02 Shortness of breath; E11.9 Type 2 diabetes mellitus without complications
CPT/HCPCS: 36415; 71046; 80048; 83880; 84484; 85025; 93005; 93010; 99285

== ENCOUNTER → 2017-08-24 | Outpatient (CLI) | payer MEDICARE, OTHER ==
[2017-08-24 12:10] LABS: ABSOLUTE BASOPHILS # (AUTO) 0.1 10^3/uL (0.0-0.2); ABSOLUTE EOSINOPHILS # (AUTO) 0.1 10^3/uL (0.0-0.6); ABSOLUTE LYMPHOCYTES (AUTO) 2.1 10^3/uL (0.5-4.7); ABSOLUTE MONOCYTES (AUTO) 0.6 10^3/uL (0.1-1.4); ABSOLUTE NEUT (AUTO) 2.6 10^3/uL (1.7-8.2); BASOPHILS % (AUTO) 1.4 % (0-2); EOSINOPHILS % (AUTO) 2.3 % (0-6); HEMATOCRIT 40.1 % (36.0-47.0); HEMOGLOBIN 12.9 g/dL (12.0-15.5); LYMPHOCYTES % (AUTO) 38.3 % (13-45); MEAN CORPUSCULAR HGB CONC 32.2 g/dL (32.0-36.0); MEAN CORPUSCULAR VOLUME 93 fl (80-97); MONOCYTES % (AUTO) 10.7 % (3-13); PLATELET COUNT 172 10^3/uL (150-450); RED BLOOD COUNT 4.31 10^6/uL (3.72-5.28); RED CELL DISTRIBUTION WIDTH 14.7 % (11.5-14.0); SEGMENTED NEUTROPHILS % (AUTO) 47.3 % (42-78); TOTAL CELLS COUNTED % (AUTO) 100 %; WHITE BLOOD COUNT 5.5 10^3/uL (4.0-10.5)
[2017-08-24 12:37] LABS: ANION GAP 17 (5-19); BLOOD UREA NITROGEN 35 mg/dL (7-20); CALCIUM 9.7 mg/dL (8.4-10.2); CARBON DIOXIDE 26 mmol/L (22-30); CHLORIDE 100 mmol/L (98-107); GLUCOSE 142 mg/dL (75-110); PHOSPHORUS 5.1 mg/dL (2.5-4.5); POTASSIUM 4.9 mmol/L (3.6-5.0); SODIUM 142.6 mmol/L (137-145)
== END ==
LOC: OD 11:23
PROVIDERS: ATTEND Internal Medicine Nephrology
DX: N18.3 Chronic kidney disease, stage 3 (moderate) (principal)
CPT/HCPCS: 36415; 80069; 82306; 83970; 85025